=== PATIENT | male | born 1950 | race Caucasian/White ===

== ENCOUNTER 2017-03-07 20:36 | Emergency (ER) | payer OTHER, MEDICARE ==
[2017-03-07 21:11] VITALS: BP 135/97
== END 2017-03-08 00:30 | disposition left against medical advice (07) ==
LOC: ER 20:36
DX: Z53.9 Procedure and treatment not carried out, unspecified reason (principal); M79.671 Pain in right foot

== ENCOUNTER → 2017-05-22 | Outpatient (CLI) | payer OTHER, MEDICARE ==
--- NOTE | 2017-05-22 12:31 | RADIOLOGY REPORT (SQ) ---
EXAM DESCRIPTION: FOOT BILATERAL 3 VIEWS COMPLETED DATE/TIME: 05/22/2017 12:03 pm REASON FOR STUDY: PAIN IN UNSPECIFIED FOOT M79.673 PAIN IN UNSPECIFIED FOOT I73.9 PERIPHERAL VASCU LAR DISEASE, UNSPECIFIED COMPARISON: Prior right foot films and left foot films 01/16/2013 MRI left foot 10/10/2015 Left foot intraoperative films 11/07/2015 NUMBER OF VIEWS: Three views. TECHNIQUE: AP, lateral and oblique radiographic images acquired of the right and left foot. LIMITATIONS: None. FINDINGS: Right foot: There is a nonunited fracture, base 1st metatarsal with medial and proximal displacement of the dista l fracture fragment. Minimal periosteal new bone. No bony bridging callus. Nonunited fractures of the 2nd and 3rd distal metatarsal metaphysis these. These exhibit mild varus angulation, periosteal new bone without bony bridging callus. Osteo necrosis articular surface 4th metatarsal head with flattening at the 4th MTP joint There is diffuse forefoot soft tissue swelling. Small plantar calcaneal spur. No radiopaque foreign body. No gross soft tissue gas. Left foot: Patient is post 2nd and 3rd toe amputations at the level of the distal metatarsals. Bony healing at the osteotomy site has occurred. No aggressive demineralization worrisome for ongoing infection. Osteo necrosis articular surface left 4th metatarsal with flattening of the 4th metatarsal head at th e 4th MTP joint. There is about 50 of valgus subluxation left great toe at the 1st MTP joint. 1st metatarsal head ex hibits no aggressive bony erosions worrisome for osteomyelitis. Mild left forefoot soft tissue swelling. IMPRESSION: Findings as above. TECHNICAL DOCUMENTATION: JOB ID: [id number] [employer]- All Rights Reserved
== END ==
LOC: OD 11:21
PROVIDERS: ATTEND Surgery
DX: M79.672 Pain in left foot (principal); M79.671 Pain in right foot; I73.9 Peripheral vascular disease, unspecified; I87.2 Venous insufficiency (chronic) (peripheral)

== ENCOUNTER 2017-10-05 22:40 | Emergency (ER) | payer MEDICARE ==
[2017-10-05] MEDS ORDERED: HALOPERIDOL LACTATE INJ 5 MG/1 ML VIAL ONE (22:50)
[2017-10-05] MEDS ORDERED: MIDAZOLAM 2 MG/2 ML INJ ONE (22:51)
[2017-10-05] MEDS ORDERED: DIPHENHYDRAMINE HCL 50 MG/ML VIAL ONE (22:51)
[2017-10-05] MEDS ORDERED: NORMAL SALINE 1000 ML 1,000 ML IV ONE (22:58)
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
[2017-10-05 23:43] LABS: ALCOHOL 212 mg/dL (NONE DETECTED); ANION GAP 16 (5-19); BLOOD UREA NITROGEN 16 mg/dL (7-20); CALCIUM 9.5 mg/dL (8.4-10.2); CARBON DIOXIDE 25 mmol/L (22-30); CHLORIDE 92 mmol/L (98-107); POTASSIUM 4.1 mmol/L (3.6-5.0); SODIUM 132.6 mmol/L (137-145)
[2017-10-05 23:53] LABS: GLUCOSE 563 mg/dL (75-110)
[2017-10-06 00:40] LABS: VENOUS BLOOD BASE EXCESS -2.2 mmol/L; VENOUS BLOOD HCO3 24.1 mmol/L (20-32); VENOUS BLOOD PH 7.33 (7.30-7.42)
[2017-10-06] MEDS ORDERED: INSULIN REG, HUMAN 100 UNIT/ML 3 ML VIAL (PYX) IV ONE (01:01)
[2017-10-06 01:36] VITALS: BP 128/89
== END 2017-10-06 01:36 | disposition home or self-care (01) ==
LOC: ER 22:40
DX: F10.920 Alcohol use, unspecified with intoxication, uncomplicated (principal); R73.9 Hyperglycemia, unspecified; F91.9 Conduct disorder, unspecified
CPT/HCPCS: 99285; 96361; 96374; 96375; 36415; 82962; 80307; 80048; 82803; J2250; J1200; J1630; A9270; J7030; J1815

== ENCOUNTER 2018-01-01 06:48 | Day surgery (SDC) | payer OTHER, MEDICARE ==
[~2018-01-01 06:48] MED LIST: KETOROLAC TROMETHAMINE 0.45% 4 DROP/0.4 ML DROPERETTE OD PRN
[2018-01-01] MEDS: TROPICAMIDE 1% OPH SOLN 3 ML OD PRN ×3 (07:00→07:39)
[2018-01-01] MEDS: CYCLOPENTOLATE 0.2%/PHENYLEPHRINE 1% OPH SOLN 2 ML OD PRN ×3 (07:00→07:39)
[2018-01-01] MEDS: BESIFLOXACIN HCL 0.6% OPH SUSP 5 ML BOTTLE OD PRN ×3 (07:01→08:22)
[2018-01-01] MEDS: TETRACAINE HCL 0.5% OPH SOLN 2 ML OD PRN ×3 (07:02→07:59)
[2018-01-01] MEDS ORDERED: LIDOCAINE 1% INJ-PF (10 MG/ML) 30 ML SDV ONE (07:08)
[2018-01-01] MEDS ORDERED: CHONDR SU A NA/HYALUR INTRAOC KIT (SURGICARE) ONE (07:08)
[2018-01-01] MEDS ORDERED: EPINEPHRINE INJ/PF 1 MG/1 ML AMPULE ONE (07:08)
[2018-01-01] MEDS ORDERED: MIDAZOLAM 2 MG/2 ML INJ ONE (07:31)
--- NOTE | 2018-01-01 20:09 | [facility] OPERATIVE REPORT E ---
[facility] Operative Report NAME: SAADIA MARK AGE: 67Y DATE OF SURGERY: 01/01/2018 ROOM: PREOPERATIVE DIAGNOSIS: CATARACT, RIGHT EYE. POSTOPERATIVE DIAGNOSIS: CATARACT, RIGHT EYE. OPERATION: Cataract extraction with intraocular lens implant of the right eye. SURGEON: MARY CHAMPAGNE M.D. ANESTHESIA: Topical. PROCEDURE: After obtaining appropriate consent, the patient's right eye was prepped and draped in sterile fashion as well as the surgeon in a sterile manner and cataract surgery was started. First a paracentesis blade was used to make a small side-port incision. Viscoelastic was used to inflate the anterior chamber. Next a 2.4 mm incision was made with the paracentesis blade. A continuous capsulorrhexis incision was made using a cystotome and Utrata forceps. Following this hydrodissection was carried out to make the lens fully loose and mobile and it was rotated 90 degrees. Following this, a eccvnp-vvu-znprkjb technique was used to phacoemulsify the lens with a CDE of 12.77. The remaining cortex was removed with irrigation/aspiration. Provisc was instilled into the capsular bag to inflate the bag. A SN60WF, 10.0 diopter lens was placed. The remaining viscoelastic material was removed with irrigation/aspiration. Following this, a 10-0 nylon suture was used to close the incision and it was found to be watertight. Vigamox was instilled in the eye and a protective shield was placed over the eye. The patient returned to the postoperative recovery in stable condition. DICTATING PHYSICIAN: MARY CHAMPAGNE M.D. [id number] [id number] PHY#: [id number] ID: [id number] JOB#: [id number] ACCT: [id number] cc:MARY CHAMPAGNE M.D. >
--- NOTE | 2018-01-01 20:14 | [facility] DISCHARGE SUMMARY E ---
[facility] Discharge Summary NAME: SAADIA MARK AGE: 67Y ADMITTED: 01/01/2018 DISCHARGED: 01/01/2018 This is a 67-year-old male who underwent cataract extraction of the right eye. DIAGNOSIS: Cataract, right eye. INDICATIONS: He underwent surgery because he was having difficulty reading the newspaper. DISCHARGE INSTRUCTIONS: He should be on a regular diet. No bending at his waist, no heaving lifting. He should use his Besivance, Ilevro, and Durezol at 3:00 p.m. and 8:00 p.m., and sleep with a rigid shield, and I will see him for his 1 day postoperative tomorrow. DICTATING PHYSICIAN: MARY CHAMPAGNE M.D. [id number] [id number] PHY#: [id number] ID: [id number] JOB#: [id number] ACCT: [id number] cc:MARY CHAMPAGNE M.D. > MTDD
== END 2018-01-01 09:10 | disposition home or self-care (01) ==
LOC: SC 06:48
PROVIDERS: ATTEND Internal Medicine
PROC: 08RJ3JZ Replacement of Right Lens with Synthetic Substitute, Percutaneous Approach (ICD-10-PCS; principal; 2018-01-01 08:00)
DX: H25.813 Combined forms of age-related cataract, bilateral (principal); H53.021 Refractive amblyopia, right eye; H40.053 Ocular hypertension, bilateral; H43.813 Vitreous degeneration, bilateral; H04.123 Dry eye syndrome of bilateral lacrimal glands; E11.9 Type 2 diabetes mellitus without complications; I10 Essential (primary) hypertension; G40.909 Epilepsy, unspecified, not intractable, without status epilepticus; M19.90 Unspecified osteoarthritis, unspecified site; F17.210 Nicotine dependence, cigarettes, uncomplicated; Z86.73 Personal history of transient ischemic attack (TIA), and cerebral infarction without residual deficits; Z79.899 Other long term (current) drug therapy; Z79.4 Long term (current) use of insulin; Z79.84 Long term (current) use of oral hypoglycemic drugs; I25.2 Old myocardial infarction
CPT/HCPCS: 66984; 82962; V2632; J2250; J3490 ×2; J0171; 142

== ENCOUNTER 2018-01-22 08:23 | Day surgery (SDC) | payer OTHER, MEDICARE ==
[~2018-01-22 08:23] MED LIST changes: -KETOROLAC TROMETHAMINE 0.45% 4 DROP/0.4 ML DROPERETTE OD PRN; +KETOROLAC TROMETHAMINE 0.45% 4 DROP/0.4 ML DROPERETTE OS PRN
[2018-01-22] MEDS: CYCLOPENTOLATE 0.2%/PHENYLEPHRINE 1% OPH SOLN 2 ML OS PRN ×3 (09:17→09:33)
[2018-01-22] MEDS: TETRACAINE HCL 0.5% OPH SOLN 2 ML OS PRN ×4 (09:17→09:50)
[2018-01-22] MEDS: TROPICAMIDE 1% OPH SOLN 3 ML OS PRN ×3 (09:17→09:33)
[2018-01-22] MEDS: BESIFLOXACIN HCL 0.6% OPH SUSP 5 ML BOTTLE OS PRN ×4 (09:17→10:11)
[2018-01-22] MEDS ORDERED: MIDAZOLAM 2 MG/2 ML INJ ONE (09:36)
[2018-01-22] MEDS ORDERED: FENTANYL CITRATE INJ/PF 100 MCG/2 ML AMPUL ONE (09:36)
[2018-01-22] MEDS ORDERED: ONDANSETRON HCL INJ/PF 4 MG/2 ML SDV ONE (09:36)
[2018-01-22] MEDS: EPINEPHRINE INJ/PF 1 MG/1 ML AMPULE ONE ×2 (10:01)
[2018-01-22] MEDS: LIDOCAINE 1% INJ-PF (10 MG/ML) 30 ML SDV ONE ×2 (10:01)
[2018-01-22] MEDS: CHONDR SU A NA/HYALUR INTRAOC KIT (SURGICARE) ONE ×2 (10:01)
--- NOTE | 2018-01-22 15:09 | [facility] OPERATIVE REPORT E ---
[facility] Operative Report NAME: SAADIA MARK AGE: 67Y DATE OF SURGERY: 01/22/2018 ROOM: PREOPERATIVE DIAGNOSIS: CATARACT, LEFT EYE. POSTOPERATIVE DIAGNOSIS: CATARACT, LEFT EYE. OPERATION: Cataract extraction with intraocular lens implant of the left eye. SURGEON: MARY CHAMPAGNE M.D. ANESTHESIA: Topical. PROCEDURE: After obtaining appropriate consent, the patient's left eye was prepped and draped in sterile fashion as well as the surgeon in a sterile manner and cataract surgery was started. First a paracentesis blade was used to make a small side-port incision. Viscoelastic was used to inflate the anterior chamber. Next a 2.4 mm incision was made with the paracentesis blade. A continuous capsulorrhexis incision was made using a cystotome and Utrata forceps. Following this hydrodissection was carried out to make the lens fully loose and mobile and it was rotated 90 degrees. Following this, a yysmmo-ilx-mphgold technique was used to phacoemulsify the lens with a CDE of 6.40. The remaining cortex was removed with irrigation/aspiration. Provisc was instilled into the capsular bag to inflate the bag. A SN60WF, 10.5 diopter lens was placed. The remaining viscoelastic material was removed with irrigation/aspiration. Following this, a 10-0 nylon suture was used to close the incision and it was found to be watertight. Vigamox was instilled in the eye and a protective shield was placed over the eye. The patient returned to the postoperative recovery in stable condition. DICTATING PHYSICIAN: MARY CHAMPAGNE M.D. [id number] PHY#: [id number] ID: [id number] JOB#: [id number] ACCT: [id number] cc:MARY CHAMPAGNE M.D. >
--- NOTE | 2018-01-22 15:15 | [facility] DISCHARGE SUMMARY E ---
[facility] Discharge Summary NAME: SAADIA MARK AGE: 67Y ADMITTED: 01/22/2018 DISCHARGED: 01/22/2018 HOSPITAL COURSE: This is a 67-year-old male who underwent cataract extraction of the left eye. DIAGNOSIS: CATARACT, LEFT EYE. He underwent surgery because he was having difficulty seeing road signs. DISCHARGE INSTRUCTIONS: He should be on a regular diet. No bending at his waist, no heavy lifting. He should use his Besivance, Ilevro, and Durezol at 3 p.m. and 8 p.m. and sleep with a rigid shield. I will see him for his 1 day postoperative tomorrow. DICTATING PHYSICIAN: MARY CHAMPAGNE M.D. [id number] PHY#: [id number] ID: [id number] JOB#: [id number] ACCT: [id number] cc:MARY CHAMPAGNE M.D. >
== END 2018-01-22 10:57 | disposition home or self-care (01) ==
LOC: SC 08:23
PROVIDERS: ATTEND Internal Medicine
DX: H25.812 Combined forms of age-related cataract, left eye (principal); Z96.1 Presence of intraocular lens; I10 Essential (primary) hypertension; I25.10 Atherosclerotic heart disease of native coronary artery without angina pectoris; Z86.73 Personal history of transient ischemic attack (TIA), and cerebral infarction without residual deficits; E11.9 Type 2 diabetes mellitus without complications; G62.9 Polyneuropathy, unspecified
CPT/HCPCS: 66984; 82962; V2632; J2250; J3490 ×2; J0171; J3010; J2405; 142

== ENCOUNTER 2018-04-12 05:19 | Inpatient (IN) | payer MEDICARE, OTHER ==
[2018-04-12 05:50] LABS: ALANINE AMINOTRANSFERASE 33 U/L (21-72); ALBUMIN 3.8 g/dL (3.5-5.0); ALKALINE PHOSPHATASE 84 U/L (38-126); ANION GAP 12 (5-19); ASPARTATE AMINO TRANSFERASE 28 U/L (17-59); BILIRUBIN,DIRECT 0.4 mg/dL (0.0-0.4); BILIRUBIN,TOTAL 0.4 mg/dL (0.2-1.3); BLOOD UREA NITROGEN 16 mg/dL (7-20); CALCIUM 9.5 mg/dL (8.4-10.2); CARBON DIOXIDE 28 mmol/L (22-30); CHLORIDE 99 mmol/L (98-107); GLUCOSE 315 mg/dL (75-110); POTASSIUM 4.6 mmol/L (3.6-5.0); SODIUM 138.7 mmol/L (137-145); TOTAL PROTEIN 6.9 g/dL (6.3-8.2)
[2018-04-12 05:58] LABS: ABSOLUTE BASOPHILS # (AUTO) 0.1 10^3/uL (0.0-0.2); ABSOLUTE EOSINOPHILS # (AUTO) 0.3 10^3/uL (0.0-0.6); ABSOLUTE LYMPHOCYTES (AUTO) 1.7 10^3/uL (0.5-4.7); ABSOLUTE NEUT (AUTO) 8.6 10^3/uL (1.7-8.2); BASOPHILS % (AUTO) 0.5 % (0-2); EOSINOPHILS % (AUTO) 2.7 % (0-6); HEMATOCRIT 34.6 % (37.9-51.0); HEMOGLOBIN 11.8 g/dL (13.5-17.0); LYMPHOCYTES % (AUTO) 14.9 % (13-45); MEAN CORPUSCULAR HEMOGLOBIN 30.6 pg (27.0-33.4); MEAN CORPUSCULAR VOLUME 90 fl (80-97); MONOCYTES % (AUTO) 8.5 % (3-13); PLATELET COUNT 183 10^3/uL (150-450); RED BLOOD COUNT 3.84 10^6/uL (4.35-5.55); RED CELL DISTRIBUTION WIDTH 13.8 % (11.5-14.0); SEGMENTED NEUTROPHILS % (AUTO) 73.4 % (42-78); TOTAL CELLS COUNTED % (AUTO) 100 %; WHITE BLOOD COUNT 11.7 10^3/uL (4.0-10.5)
--- NOTE | 2018-04-12 06:14 | RADIOLOGY REPORT (SQ) ---
EXAM DESCRIPTION: XR CHEST 1 VIEW COMPLETED DATE/TME: 04/12/2018 05:31 CLINICAL HISTORY: chest tightness COMPARISON: 10/21/2015 FINDINGS: Single frontal view of the chest. Cardiomediastinal silhouette has normal size and contour. Diffuse bilateral interstitial opacities with pulmonary vascular congestion. No pneumothorax. No large effusion. Leads overlie the chest. No acute osseous abnormalities. Left basilar calcified granuloma. Upper abdominal soft tissues are unremarkable. IMPRESSION: 1. Mild interstitial pulmonary edema.
--- NOTE | 2018-04-12 06:18 | ER Document Report ---
Doctor's Note Notes: 04/12/18 06:14 I performed a quick triage evaluation the patient. Patient is a 67-year-old male presents with complaint of difficulty breathing and tightness around his chest. He denies any history of COPD emphysema. He does smoke cigars. No history of coronary disease. Paramedics said he had tight lung sams. They gave him breathing treatments and Solu-medrol. He said this did help his breathing but he still feels a lot of tightness and pressure in his chest. No other complaints at this time. I have ordered cardiac enzymes as well as EKG and chest x-ray. Lung sams are currently clear. Dictation of this chart was performed using voice recognition software; therefore, there may be some unintended grammatical errors. 04/12/18 06:17
[2018-04-12] MEDS ORDERED: MAGNESIUM SULFATE/D5W 1 GM/100 ML RTUPB IV ONE (06:32)
[2018-04-12] MEDS ORDERED: ALBUTEROL SULFATE 0.083% NEB 2.5 MG/3 ML AMPUL NEB ONE ×3 (06:34→07:33)
[2018-04-12] MEDS ORDERED: METHYLPREDNISOLONE INJ 125 MG/2 ML SDV IV ONE (06:34)
[2018-04-12] MEDS ORDERED: FUROSEMIDE INJ/PF 40 MG/4 ML SDV IV ONE ×3 (07:49→20:00)
[2018-04-12 08:25] LABS: ARTERIAL BLOOD BASE EXCESS 2.6 mmol/L; ARTERIAL BLOOD H2CO3 1.28 mmol/L (1.05-1.35); ARTERIAL BLOOD HCO3 27.3 mmol/L (20-26); ARTERIAL BLOOD PCO2 42.5 mmHg (35-45); ARTERIAL BLOOD PH 7.43 (7.35-7.45); ARTERIAL BLOOD PO2 61.3 mmHg (80-100); ARTERIAL BLOOD TOTAL CO2 28.6 mmol/L (23-27)
--- NOTE | 2018-04-12 08:25 | EKG REPORT ---
SEVERITY:- ABNORMAL ECG - SINUS TACHYCARDIA BORDERLINE R WAVE PROGRESSION, ANTERIOR LEADS REPOL ABNRM SUGGESTS ISCHEMIA, DIFFUSE LEADS BORDERLINE PROLONGED QT INTERVAL : Confirmed by: Agnes Calderon MD 12-Apr-2018 08:24:54
[2018-04-12 08:26] LABS: ARTERIAL BLOOD FIO2 7L
--- NOTE | 2018-04-12 09:29 | RADIOLOGY REPORT (SQ) ---
EXAM DESCRIPTION: CTA CHEST COMPLETED DATE/TIME: 04/12/2018 9:15 am REASON FOR STUDY: sob COMPARISON: Chest radiograph TECHNIQUE: CT scan of the chest performed using helical scanning technique with dynamic intravenous contrast injection. Images reviewed with lung, soft tissue and bone windows. Reconstructed coronal and sagittal MPR images reviewed. Additional 3 dimensional post-processing performed to develop Maximal Intensity Projection images (HI P). All images stored on PACS. All CT scanners at this facility use dose modulation, iterative reconstruction, and/or weight based d osing when appropriate to reduce radiation dose to as low as reasonably achievable (ALARA). [facility]: Dose Right [facility]: CareDose [facility]: Dose Right [facility]: Teradose 4D [facility]: Amicus CONTRAST TYPE AND DOSE: contrast/concentration: Isovue 370.00 mg/ml; Total Contrast Delivered: 68.0 ml; Total Saline Delivered: 108.0 ml Contrast bolus optimized for the pulmonary arteries. Not diagnostic for the aorta. RENAL FUNCTION: Creatinine 1.19 RADIATION DOSE: CT Rad equipment meets quality standard of care and radiation dose reduction techniq ues were employed. CTDIvol: 25.6 - 32.8 mGy. DLP: 1084 mGy-cm. . LIMITATIONS: None. FINDINGS: LUNGS AND PLEURA: Diffuse interstitial and alveolar changes to the lungs with prominent ly mphatics. Typical of congestive heart failure and pulmonary edema. AORTA AND GREAT VESSELS: No aneurysm. Contrast bolus not optimized for the aorta. HEART: No pericardial effusion. Coronary artery calcifications. PULMONARY ARTERIES: No emboli visualized in the main pulmonary arteries or the segmental branches. HILAR AND MEDIASTINAL STRUCTURES: No identified masses or abnormal nodes. HARDWARE: None in the chest. UPPER ABDOMEN: Extensive pancreatic calcifications indicating chronic pancreatitis. THYROID AND OTHER SOFT TISSUES: No masses. No adenopathy. BONES: No acute or significant finding. 3D MIPS: Confirm above findings. OTHER: No other significant finding. IMPRESSION: Congestive heart failure is interstitium alveolar pulmonary edema. No pulmonary emboli. Chronic pancreatitis. COMMENT: Quality ID # [id number]: Final reports with documentation of one or more dose reduction techniques (e.g., Automated exposure control, adjustment of the mA and/or kV according to patient size, use of iterative reconstruction technique) TECHNICAL DOCUMENTATION: JOB ID: [id number] [employer]- All Rights Reserved Reading location - IP/workstation name: [email or web address]
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
[2018-04-12] MEDS ORDERED: ACETAMINOPHEN 325 MG TABLET PO PRN (11:25)
[2018-04-12] MEDS ORDERED: LEVALBUTEROL HCL NEB 1.25 MG/3 ML AMPUL NEB PRN (11:37)
[2018-04-12] MEDS ORDERED: IPRATROPIUM/ALBUTEROL 0.5-2.5 MG/3 ML AMPUL NEB PRN (11:37)
[2018-04-12] MEDS: OXYCODONE HCL IR 5 MG TABLET PO PRN (12:21)
[2018-04-12 12:32] LABS: APPEARANCE,URINE CLEAR; BILIRUBIN,URINE NEGATIVE (NEGATIVE); COLOR,URINE COLORLESS; GLUCOSE, URINE >=500 mg/dL (NEGATIVE); KETONES,URINE NEGATIVE (NEGATIVE); LEUKOCYTE ESTERASE,URINE NEGATIVE (NEGATIVE); NITRITE,URINE NEGATIVE (NEGATIVE); PROTEIN,URINE 30 mg/dL (NEGATIVE); URINE SPECIFIC GRAVITY 1.011; UROBILINOGEN,URINE NEGATIVE mg/dL (<2.0)
[2018-04-12 12:51] LABS: URINE AMPHETAMINES SCREEN NEGATIVE; URINE BARBITURATES SCREEN NEGATIVE; URINE BENZODIAZEPINES SCREEN NEGATIVE; URINE COCAINE SCREEN NEGATIVE; URINE MARIJUANA (THC) SCREEN UNCONFIRMED POSITIVE; URINE METHADONE SCREEN NEGATIVE; URINE PHENCYCLIDINE SCREEN NEGATIVE
[2018-04-12] MEDS ORDERED: DIVALPROEX SODIUM 250 MG TAB.SR.24H PO ONE ×2 (13:00→17:00)
--- NOTE | 2018-04-12 13:55 | RADIOLOGY REPORT (SQ) ---
EXAM DESCRIPTION: FOOT LEFT COMPLETE COMPLETED DATE/TIME: 04/12/2018 1:44 pm REASON FOR STUDY: evaluate for osteomyelitis COMPARISON: 11/07/2015 NUMBER OF VIEWS: Three views. TECHNIQUE: AP, lateral and oblique radiographic images acquired of the left foot. LIMITATIONS: Choose 2 FINDINGS: MINERALIZATION: Normal. BONES: Partial amputation of the seconds and 3rd digits. No worrisome bone changes at the amputation site. Marked hallux valgus. No findings to suggest osteomyelitis on plain radiograph. JOINTS: No effusions. SOFT TISSUES: No soft tissue swelling. No foreign body. OTHER: No other significant finding. IMPRESSION: No findings to suggest osteomyelitis on plain radiographs. TECHNICAL DOCUMENTATION: JOB ID: [id number] [employer]- All Rights Reserved Reading location - IP/workstation name: [email or web address]
[2018-04-12] MEDS ORDERED: DEXTROSE 50%-WATER 25 GM/50 ML DISP.SYRIN IV PRN ×3 (15:44→15:45)
[2018-04-12] MEDS ORDERED: DEXTROSE 40% GEL 15 GM TUBE PO PRN ×4 (15:44→15:45)
[2018-04-12] MEDS ORDERED: GLUCAGON,HUMAN RECOMB 1 MG INJ IM PRN ×2 (15:44→15:45)
[2018-04-12] MEDS: GABAPENTIN 300 MG CAPSULE PO SCH ×2 (16:26→22:17)
[2018-04-12] MEDS ORDERED: INSULIN LISPRO 100 UNIT/ML 3 ML VIAL SUBCUT ONE (17:30)
[2018-04-12] MEDS: INSULIN LISPRO 100 UNIT/ML 3 ML VIAL SUBCUT PRN ×2 (17:33→22:18)
[2018-04-12] MEDS ORDERED: LEVOFLOXACIN 750 MG/D5W RTU 750 MG/150 ML RTUPB IV ONE (18:00)
[2018-04-12] MEDS ORDERED: HYDRALAZINE HCL INJ/PF 20 MG/1 ML SDV IV PRN (18:03)
[2018-04-12] MEDS ORDERED: IPRATROPIUM/ALBUTEROL 0.5-2.5 MG/3 ML AMPUL NEB ONE (18:05)
[2018-04-12] MEDS ORDERED: AMOXICILLIN TRIHYDRATE 500 MG CAPSULE PO SCH (22:00)
[2018-04-12] MEDS: FAMOTIDINE 20 MG TABLET PO SCH (22:18)
[2018-04-13] MEDS: OXYCODONE HCL IR 5 MG TABLET PO PRN ×4 (01:31→20:03)
[2018-04-13] MEDS: GABAPENTIN 300 MG CAPSULE PO SCH ×3 (05:56→21:16)
[2018-04-13 05:57] LABS: HEMATOCRIT 31.4 % (37.9-51.0); HEMOGLOBIN 10.8 g/dL (13.5-17.0); MEAN CORPUSCULAR HEMOGLOBIN 30.8 pg (27.0-33.4); MEAN CORPUSCULAR HGB CONC 34.5 g/dL (32.0-36.0); MEAN CORPUSCULAR VOLUME 89 fl (80-97); PLATELET COUNT 180 10^3/uL (150-450); RED BLOOD COUNT 3.51 10^6/uL (4.35-5.55); RED CELL DISTRIBUTION WIDTH 13.7 % (11.5-14.0)
[2018-04-13 06:24] LABS: ALANINE AMINOTRANSFERASE 30 U/L (21-72); ALKALINE PHOSPHATASE 65 U/L (38-126); ANION GAP 10 (5-19); ASPARTATE AMINO TRANSFERASE 44 U/L (17-59); BILIRUBIN,DIRECT 0.3 mg/dL (0.0-0.4); BILIRUBIN,TOTAL 0.3 mg/dL (0.2-1.3); BLOOD UREA NITROGEN 25 mg/dL (7-20); CALCIUM 9.2 mg/dL (8.4-10.2); CARBON DIOXIDE 28 mmol/L (22-30); CHLORIDE 100 mmol/L (98-107); GLUCOSE 202 mg/dL (75-110); PHOSPHORUS 3.4 mg/dL (2.5-4.5); SODIUM 138.2 mmol/L (137-145); TOTAL PROTEIN 5.9 g/dL (6.3-8.2)
[2018-04-13] MEDS ORDERED: ONDANSETRON 4 MG TAB.RAPDIS PO PRN (07:55)
[2018-04-13] MEDS: INSULIN LISPRO 100 UNIT/ML 3 ML VIAL SUBCUT PRN ×3 (07:58→21:16)
--- NOTE | 2018-04-13 08:09 | RADIOLOGY REPORT (SQ) ---
EXAM DESCRIPTION: CHEST SINGLE VIEW COMPLETED DATE/TIME: 04/13/2018 7:54 am REASON FOR STUDY: pneumonia COMPARISON: AP chest 04/12/2018, 10/21/2015 EXAM PARAMETERS: NUMBER OF VIEWS: One view. TECHNIQUE: Single frontal radiographic view of the chest acquired. RADIATION DOSE: NA LIMITATIONS: None. FINDINGS: LUNGS AND PLEURA: Pulmonary edema pattern seen on 04/12/2018 has near completely cleared. Few Devon lines persist at both bases. There is minimal retrocardiac and right basilar atelectasis with trace right pleural effusion. No pneumothorax. MEDIASTINUM AND HILAR STRUCTURES: No masses. Contour normal. HEART AND VASCULAR STRUCTURES: No cardiomegaly BONES: No acute findings. HARDWARE: None in the chest. OTHER: No other significant finding. IMPRESSION: Significant improvement in the pulmonary edema pattern seen on 04/12/2018. On the curren t study, few Devon lines persist at both lung bases, with trace right pleural effusion. TECHNICAL DOCUMENTATION: JOB ID: [id number] [employer]- All Rights Reserved Reading location - IP/workstation name: [email or web address]
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
[2018-04-13] MEDS: DIVALPROEX SODIUM 250 MG TAB.SR.24H PO SCH (09:35)
[2018-04-13] MEDS: FUROSEMIDE INJ/PF 40 MG/4 ML SDV IV SCH (09:35)
[2018-04-13] MEDS: ESCITALOPRAM OXALATE 10 MG TABLET PO SCH (09:38)
[2018-04-13] MEDS: ENOXAPARIN SODIUM INJ 40 MG/0.4 ML DISP.SYRIN SUBCUT SCH (09:38)
[2018-04-13] MEDS: FAMOTIDINE 20 MG TABLET PO SCH ×2 (09:38→21:16)
[2018-04-13] MEDS: PAROXETINE HCL 20 MG TABLET PO SCH (09:38)
[2018-04-13] MEDS ORDERED: VERAPAMIL HCL 120 MG TABLET.SA PO SCH (10:00)
[2018-04-13] MEDS ORDERED: ENOXAPARIN SODIUM INJ 30 MG/0.3 ML DISP.SYRIN SUBCUT SCH (10:00)
[2018-04-13] MEDS ORDERED: (PENDING PHARMACY ID) (Paroxetine Hcl [Paxil] 60 MG) PO SCH (10:00)
[2018-04-13] MEDS ORDERED: (PENDING PHARMACY ID) (Verapamil Hcl [Verapamil Er] 120 MG) PO SCH (10:00)
--- NOTE | 2018-04-13 15:14 | CONSULTATION REPORT E ---
Consultation Report NAME: SAADIA MARK : 1950 AGE: 67Y DATE: 04/12/2018 302 A TO: LIZBET MOTT M.D. FROM: Ron GRAY, Requesting Physician REASON FOR CONSULTATION: Congestive heart failure. HISTORY: The patient is a very poor historian. Note, the patient was seen at 10 a.m. in the emergency room while the patient was on BiPAP. The patient is a 67-year-old male with known history of hypertension, poorly controlled diabetes mellitus, depression, and history of coronary artery disease, who states that he woke up suddenly this morning around 2 a.m. with wheezing and cough. He seems like he has been having increased shortness of breath for the past few days. He states since a year, he has been having off and on episodes of cough, which he calls a smoker's cough with some shortness of breath and wheezing. He has never been diagnosed as having COPD. Today, the patient woke up with wheezing and cough, productive of sputum, which is grayish with blobs of greenish viscous sputum. He denies any fevers. No chills or rigors. Surprisingly, he denies any orthopnea or PND. When the paramedics went and saw him, he was found to be wheezing and given DuoNeb and transferred to the emergency room and subsequently the wheezing continued and hence, the patient was placed on BiPAP. At present the patient states he is feels better, but still does have some shortness of breath. He denies any chest pain or discomfort. There is no PND or orthopnea. No palpitations, no leg edema. PAST MEDICAL HISTORY: 1. Positive for history of hypertension. 2. He states a few years ago, he does not remember where, he had his catheterization. This was done due to chest pain and he was told he had coronary artery disease, but no stents were placed. There was no followup. He was also told he had a myocardial infarction at that time. 3. He has history of diabetes mellitus, which is poorly controlled. 4. He also has a diabetic nonhealing ulcer of the left big toe, ulnar surface. 5. He has history of significant depression. 6. He also in the past has had a bleeding peptic ulcer. 7. Also has a history of GERD. 8. He has no history of thyroid disease. 9. He states in the past he has had a CVA. He does not remember exactly what the symptoms were, but he states he has fully recovered. 10. He does have diabetic neuropathy. 11. He states he had a left knee surgery 4 years ago and he says that he has had problems with that knee since then. PAST SURGICAL HISTORY: Positive for: 1. Right carpal tunnel release surgery. 2. Left knee replacement. 3. Amputation of the left 3rd toe. 4. Cardiac catheterization. FAMILY HISTORY: Positive for hypertension and diabetes mellitus, but no coronary artery disease. SOCIAL HISTORY: The patient is a smoker and ETOH abuse. ADVANCE DIRECTIVES: The patient is a FULL CODE. His is his surrogate healthcare decision-maker. ALLERGIES: The patient has no known allergies. MEDICATIONS: 1. Tylenol 650 mg p.o. q.4 hours p.r.n. 2. Albuterol sulfate/Ventolin 2 puffs nebulizer treatment x1. 3. Albuterol sulfate 2.5 mg repeated x2. 4. Hypoglycemic precautions with glutose 40% gel, 15 grams and 30 grams p.r.n. hypoglycemia. 5. Dextrose 50%, 12.6 grams and 25 grams IV p.r.n. hypoglycemia. 6. Glucagon 1 mg IM p.r.n. hypoglycemia. 7. Depakote 500 mg p.o. x1 and 500 mg p.o. daily. 8. Lovenox 30 mg subcutaneously daily. 9. Lexapro 10 mg p.o. daily. 10. Pepcid 20 mg p.o. q.12 hours. 11. Lasix 40 mg IV x1 and 40 mg IV daily. 12. Neurontin 600 mg p.o. q.8 hours. 13. Hydralazine 10 mg IV q.4 hours p.r.n. 14. Accu-Chek after meals 3 times a day and at bedtime with sliding scale regular insulin coverage. 15. Ipratropium/albuterol sulfate 3 mL nebulizer treatment q.4 hours p.r.n. Pre and post PFT. 16. Levaquin 750 mg in 150 mL IV piggyback every evening. 17. Magnesium sulfate 1 gram in 100 mL IV x1. 18. Xopenex 1.25 mg nebulizer treatment q.4 hours p.r.n. 19. Solu-Medrol 125 mg IV x1. 20. Oxycodone 5 mg p.o. q.4 hours p.r.n. 21. Paxil 60 mg p.o. daily. 22. Verapamil 120 mg p.o. daily. REVIEW OF SYSTEMS: CONSTITUTIONAL: Denies any fever, chills, or rigors. Complains of generalized fatigue and weakness. HEAD: Denies headaches, head injury or dizziness. EYES: No history of amblyopia or diplopia. No history of amaurosis fugax. EARS: No history of hearing loss. No history of tinnitus. No history of recurrent ear infections. NOSE: No history of nosebleeds. No history of hay fever. No rhinitis. MOUTH: No altered taste sensation. No bleeding from the gums. THROAT: No redness of the oropharynx. No exudates in the throat. SKIN: There is no pruritus, there is no jaundice, there is eczema or psoriasis. LUNGS: Although there is no formal diagnosis of COPD, the patient does have COPD. He denies sleep apnea. Recent symptoms of cough productive of sputum with bilateral right greater than left x-ray findings suggestive of pneumonia. He has no history of sleep apnea. No history of pulmonary embolism. No history of hemoptysis. No history of pleuritic chest pain. Recent wheezing as mentioned earlier. CARDIAC: History of coronary artery disease. History of old [place]. No anginal symptoms. No history of stent placement or any other revascularization procedure. No history of congestive heart failure. No history of cardiac arrhythmia. History of hypertension. He has a history of hypercholesterolemia. No history of PND, leg edema, syncope or near syncope. GASTROINTESTINAL: History of GERD present. No history of fatty food intolerance. No history of jaundice. No history of GI bleed. History of peptic ulcer disease in the past with no recurrence. No history of altered bowel movements. Appetite is good. MUSCULOSKELETAL: History of arthritis present. No history of collagen vascular disease. He had surgery on his left knee. ENDOCRINE: History of diabetes mellitus type 2. The diabetes is poorly controlled. There is no diabetic nephropathy. There is diabetic neuropathy present. The patient does not have history of thyroid disease, but we need to get thyroid function tests to make sure. RENAL: No history of chronic kidney disease. No history of hematuria, dysuria, pyuria or dysuria. No symptoms of enlarged prostate. CENTRAL NERVOUS SYSTEM: History of CVA from which he has fully recovered. No further CVA. No recent TIA. No history of headaches or migraines. He has had history of seizures a long time ago due to low blood sugar, but has not had any recurrence of seizures. He has no documented history of seizures. No history of gait imbalance. No history of sleep apnea. PSYCHIATRIC: History of significant depression. No history of suicidal ideation. No history of homicidal ideation. VASCULAR: No history of calf or buttock claudication. No history of DVT. HEMATOLOGIC: No history of bleeding diathesis, no history of clotting disorder. PHYSICAL EXAMINATION: GENERAL: On examination the patient well built and well nourished, at present on BiPAP. He is well groomed. VITAL SIGNS: He is afebrile with temperature 98.4 degrees Fahrenheit, pulse 95 beats/min, blood pressure 146/92, respirations 16/min, O2 saturation 100% on BiPAP with FiO2 of 35%. HEENT: Head is atraumatic, normocephalic. Eyes: Pupils are equal, round and regular, reactive to light. Extraocular movements normal. There is no conjunctival pallor. There is no scleral icterus. Ears: Tympanic membranes are intact, external auditory canals are clear. Nose: There is no deviated nasal septum. There is no inflammation of the nasal mucous membrane. Mouth: Mucous membranes appear moist. Tongue is moist. There is no bleeding from the gums. Throat: There is no redness of the oropharynx. There is no exudate. SKIN: There is no skin rashes. There is no petechiae or ecchymosis. There are no skin lesions. There is an ulcer in the ulnar surface of the right left great toe. There is hallux valgus of the left great toe. There is amputation of the left 3rd toe. NECK: Supple. There is mild JVD. Carotids are equal. There are no bruits. There is no lymphadenopathy. Trachea is central. LUNGS: Show diminished air entry prolongation. There are dry crackles right base greater than left. There are fine rales of CHF and the x-ray report says the patient has congestive heart failure, as well as the patient's CTA. There is hyperresonance on percussion. There is no dullness. HEART: S1, S2 is heard. There are no S3 or S4 gallops. There is a systolic murmur at the left sternal border at the apex, suggestive of mitral regurgitation and tricuspid regurgitation. There is no rub. There is no aortic stenosis murmur. There is no aortic regurgitation murmur. S1 is of normal intensity. There are no rubs. There are no gallops. ABDOMEN: Soft, nontender. There is no hepatosplenomegaly. Bowel sounds are well heard. There are no tender areas or masses. DIAGNOSTICS: The patient's foot x-ray does not suggests osteomyelitis. Chest Xray shows bilateral pneumonia and CHF. EKG : SINUS TACHYCARDIA : BORDERLINE R WAVE PROGRESSION, ANTERIOR LEADS REPOL ABNRM SUGGESTS ISCHEMIA, DIFFUSE LEADS . BORDERLINE PROLONGED QT INTERVAL His troponin-I 0.044. Ant-proBNP 5210. Lipase less than 10. Albumin 3.8, total protein 6.9. Urine for opiates, methadone, barbiturates, phencyclidine, amphetamines, benzodiazepines and cocaine are negative. His urine marijuana screen is positive. His serum alcohol is less than 10. IMPRESSION: 1. Acute hypoxemic respiratory failure. 2. Acute exacerbation of chronic obstructive pulmonary disease. 3. Bilateral pneumonia. 4. Congestive heart failure.( Systolic versus Diastolic versus Combined). 5. Diabetes mellitus, poor control. 6. Hypertension. 7. History of coronary artery disease and history of old myocardial infarction; no anginal symptoms, no myocardial infarction this admission. 8. Depression, seems to be severe. 9. Gastroesophageal reflux disease. 10. History of hyperlipidemia. 11. Diabetic neuropathy. 12. Nonhealing ulcer of the left big toe. 13. Tobacco abuse disorder. RECOMMENDATIONS: I agree with the present treatment. I would continue the patient on Levaquin. We will get an echo. We will see if the infiltrates have improved after IV Lasix, in which case the diagnosis would lean more towards congestive heart failure. Continue respiratory treatments. Watch out for any arrhythmias. Would recommend tight control of his blood sugar. Continue gabapentin for his neuropathy. Continue his antidepressants. Continue his Verapamil. We will try to get his records from the [facility]. I will also ask the . His medications have been reviewed. Medical decision-making is of high complexity. Note, the patient was seen at 10 a.m. and 60 minutes were spent on the patient, more than 50% of the time spent on direct patient care. Discussed with the hospitalist taking care of the patient. Discussed with the patient. We will follow with you. Thanking you. DICTATING PHYSICIAN: LIZBET MOTT M.D. [id number] PHY#: [id number] ID: [id number] JOB#: [id number] ACCT: [id number] cc:LIZBET MOTT M.D. > MTDD
--- NOTE | 2018-04-13 16:39 | PDOC PROGRESS REPORT ---
<BARTOLO RIBEIRO - Last Filed: 04/13/18 16:38> Subjective Progress Note for:: 04/13/18 Subjective:: SAADIA MARK is a 67 y.o. M with a PMH of DM, HTN, IBS, chronic pain, 50 pack year smoking history, and daily marijuana use. The patient was admitted to [facility] 04/12/2018 for shortness of breath and chest pain. He was diagnosed with a CHF and COPD exacerbation. The patient was initially admitted on BIPAP, but following diuresis, he was quickly able to wean to nasal cannula. Patient seen this morning on rounds, he is resting comfortably in bed on room air with his at the bedside. The patient has no complaints this morning. He denies shortness of breath, dyspnea, chest pain, fever or chills. His BNP is worse this morning (5120 ->48219) but his lungs are clear to auscultation. Patient does not exhibit any signs of respiratory distress. Normal S1-S2, no murmur/rubs/gallops. No evidence of peripheral edema. Small scattered venous stasis ulcers and skin discoloration to bilateral lower extremities. Large diabetic ulcer to ventral aspect of L foot, covered with dressing, very mild serosanguenous drainage. Reason For Visit: CHF/COPD EXACERBATION Physical Exam Vital Signs: Temp Pulse Resp BP Pulse Ox 98.1 F 92 16 132/82 H 96 04/13/18 11:23 04/13/18 11:23 04/13/18 11:23 04/13/18 11:23 04/13/18 11:23 Pulse Oximeter Continuous Start: 04/12/18 11: 26 Freq: RTQ4 Status: Active Document 04/13/18 11:19 TPO (Rec: 04/13/18 11:20 TPO [email or web address]) Pulse Oximetry Assessment Oxygen Saturation (92-100) 99 Oxygen Delivery Method Room Air Fraction of Inspired Oxygen (FIO2) 21 Equipment Usage Equipment in Use Continuous SpO2 Machine # 11 Intake & Output 04/12/18 04/13/18 04/14/18 06:59 06:59 06:59 Intake Total 717 992 Output Total 2300 Balance -1583 992 Weight 72.8 kg General appearance: PRESENT: no acute distress, thin Eye exam: PRESENT: conjunctiva pink, PERRLA Mouth exam: PRESENT: moist Teeth exam: PRESENT: poor dentation Neck exam: PRESENT: full ROM Respiratory exam: PRESENT: clear to auscultation deandre, symmetrical, unlabored Cardiovascular exam: PRESENT: RRR, +S1, +S2 Pulses: PRESENT: normal radial pulses, normal dorsalis pedis pul GI/Abdominal exam: PRESENT: normal bowel sounds, soft. ABSENT: tenderness Rectal exam: PRESENT: deferred Extremities exam: PRESENT: full ROM. ABSENT: joint swelling, pedal edema Musculoskeletal exam: PRESENT: full ROM Neurological exam: PRESENT: alert, awake, oriented to person, oriented to place , oriented to time, oriented to situation Psychiatric exam: PRESENT: appropriate affect Skin exam: PRESENT: dry, intact, warm Results Laboratory Results: 04/13/18 04:35 04/13/18 04:35 04/13/18 04/13/18 04:35 04:35 WBC 18.0 H RBC 3.51 L Hgb 10.8 L Hct 31.4 L MCV 89 MCH 30.8 MCHC 34.5 RDW 13.7 Plt Count 180 Sodium 138.2 Potassium 4.0 Chloride 100 Carbon Dioxide 28 Anion Gap 10 BUN 25 H Creatinine 0.95 Est GFR ( Amer) > 60 Est GFR (Non-Af Amer) > 60 Glucose 202 H Calcium 9.2 Phosphorus 3.4 Magnesium 1.9 Total Bilirubin 0.3 AST 44 ALT 30 Alkaline Phosphatase 65 Total Protein 5.9 L Albumin 3.0 L 04/13/18 04:35 NT-Pro-B Natriuret Pep 60035 H Impressions: Foot X-Ray 04/12/18 00:00 IMPRESSION: No findings to suggest osteomyelitis on plain radiographs. Chest/Abdomen CTA 04/12/18 06:36 IMPRESSION: Congestive heart failure is interstitium alveolar pulmonary edema. No pulmonary emboli. Chronic pancreatitis. Chest X-Ray 04/13/18 00:00 IMPRESSION: Significant improvement in the pulmonary edema pattern seen on 04/12. On the current study, few Devon lines persist at both lung bases, with trace right pleural effusion. Status: Imported from PACS Assessment & Plan - Diagnosis (1) Acute respiratory failure QualifierTitle: Respiratory failure complication: hypoxia Qualified Code( s): J96.01 - Acute respiratory failure with hypoxia Is this a current diagnosis for this admission?: Yes Plan: Secondary to CHF and COPD exacerbation Patient denies history of COPD but endorses 50 year smoking history, currently still smoking, endorses daily productive cough Patient denies history of CHF but evidence of interstitial and alveolar changes on CTA typical of CHF, elevated BNP, LVEF 30% Initially placed on BiPAP for tachypnea and increased work of breathing Diuresed with IV Lasix in emergency department and able to wean off BiPAP Continue supplemental oxygen for SPO2 >90% BiPAP as needed Duo nebs as needed Xopenex as needed Empiric antibiotic coverage for severe COPD exacerbation versus community- acquired pneumonia Sputum cultures pending Daily diuresis for CHF exacerbation (2) Pulmonary edema QualifierTitle: Chronicity: acute Qualified Code(s): J81.0 - Acute pulmonary edema Is this a current diagnosis for this admission?: Yes Plan: Improved. As evidenced by interstitial pulmonary edema on CTA and CXR Likely secondary to undiagnosed CHF BNP 41348 Initially diuresed with 40 mg Lasix IV in emergency department Continue daily diuresis BiPAP as needed (3) COPD (chronic obstructive pulmonary disease) QualifierTitle: Chronic bronchitis type: unspecified Is this a current diagnosis for this admission?: Yes Plan: Patient denies history of COPD but admits to [id number] smoking history. Patient no longer smokes cigarettes, states he smokes cigars and marijuana every day Patient admits to productive cough with green/duarte sputum Lungs are clear to auscultation, no adventitious breath sounds PFT completed - awaiting results BiPAP as needed Duo nebs as needed Xopenex as needed Mucinex twice daily Empiric antibiotic coverage with IV Levaquin for severe COPD exacerbation versus community-acquired pneumonia (4) Diabetic foot ulcer QualifierTitle: Diabetic foot ulcer location: toe Diabetes mellitus type : type 1 Laterality: right Non-pressure ulcer stage: unspecified non- pressure ulcer stage Qualified Code(s): E10.621 - Type 1 diabetes mellitus with foot ulcer; L97.519 - Non-pressure chronic ulcer of other part of right foot with unspecified severity; L97.519 - Non-pressure chronic ulcer of other part of right foot with unspecified severity; L97.519 - Non-pressure chronic ulcer of other part of right foot with unspecified severity; L97.519 - Non- pressure chronic ulcer of other part of right foot with unspecified severity Is this a current diagnosis for this admission?: Yes Plan: Large open ulcer on the ventral aspect of the L foot, located over the 1st proximal phalange Surrounding tissue is pink and blanchable. There is no tunneling of evidence of necrosis. Patient reports he is being followed by a grey goods tester in [place] X-ray to evaluate for osteomyelitis is (-) negative Antibiotic coverage with IV Levaquin 750mg daily Wound culture pending (5) CHF (congestive heart failure) QualifierTitle: Heart failure type: unspecified Heart failure chronicity : unspecified Qualified Code(s): I50.9 - Heart failure, unspecified Is this a current diagnosis for this admission?: Yes Plan: Previously undiagnosed. Patient denies history of heart failure. BNP 5210 [place] [address] but patient is asymptomatic at this time Interstitial pulmonary edema noted on CTA and CXR ECHOcardiogram shows LVEF 30% Continue daily diuresis Cardiology consulted, recommend initiating Toprol XL and lisinopril Patient will require outpatient cardiology follow up upon discharge Request Heart Failure educator to meet with patient (6) HTN (hypertension) QualifierTitle: Hypertension type: essential hypertension Qualified Code( s): I10 - Essential (primary) hypertension Is this a current diagnosis for this admission?: Yes Plan: Patient endorses history of hypertension He has remained relatively normotensive since admission Discontinue verapamil per cardiology recommendations Initiate Toprol-XL and lisinopril Hydralazine IV for SBP>170 - Time Time Spent with patient: 15-24 minutes Medications reviewed and adjusted accordingly: Yes Anticipated discharge: Home - Inpatient Certification Based on my medical assessment, after consideration of the patient's comorbidities, presenting symptoms, or acuity I expect that the services needed warrant INPATIENT care.: Yes I certify that my determination is in accordance with my understanding of Medicare's requirements for reasonable and necessary INPATIENT services [42 CFR 412.3e].: Yes Medical Necessity: Need for Nebulizer Therapy and Monitoring of Response, Need for IV Antibiotics, Risk of Complication if Not Cared For in Hospital - Plan Summary Plan Summary: CONTINUE ANTIBIOTIC TREATMENT. AWAITING OFFICIAL ECHO RESULTS. CONTINUE DAILY DIURESIS. INITIATE NEW ANTI-HTN MANAGEMENT PER CARDIOLOGY RECOMMENDATIONS, <BRICE DARLING M - Last Filed: 04/13/18 17:59> Subjective Reason For Visit: CHF/COPD EXACERBATION Physical Exam Vital Signs: Temp Pulse Resp BP Pulse Ox 98.2 F 74 16 114/72 100 04/13/18 15:13 04/13/18 15:47 04/13/18 15:47 04/13/18 15:13 04/13/18 15:47 Pulse Oximeter Continuous Start: 04/12/18 11: 26 Freq: RTQ4 Status: Active Document 04/13/18 15:47 [facility] (Rec: 04/13/18 16:26 [facility] [email or web address]) Pulse Oximetry Assessment Oxygen Saturation (92-100) 100 Oxygen Delivery Method Room Air Fraction of Inspired Oxygen (FIO2) 21 Equipment Usage Equipment in Use Continuous SpO2 Machine # [id number] Intake & Output 04/12/18 04/13/18 04/14/18 06:59 06:59 06:59 Intake Total 717 992 Output Total 2300 Balance -1583 992 Weight 72.8 kg Results Laboratory Results: 04/13/18 04:35 04/13/18 04:35 04/13/18 04/13/18 04:35 04:35 WBC 18.0 H RBC 3.51 L Hgb 10.8 L Hct 31.4 L MCV 89 MCH 30.8 MCHC 34.5 RDW 13.7 Plt Count 180 Sodium 138.2 Potassium 4.0 Chloride 100 Carbon Dioxide 28 Anion Gap 10 BUN 25 H Creatinine 0.95 Est GFR ( Amer) > 60 Est GFR (Non-Af Amer) > 60 Glucose 202 H Calcium 9.2 Phosphorus 3.4 Magnesium 1.9 Total Bilirubin 0.3 AST 44 ALT 30 Alkaline Phosphatase 65 Total Protein 5.9 L Albumin 3.0 L 04/13/18 04:35 NT-Pro-B Natriuret Pep 57594 H Impressions: Foot X-Ray 04/12/18 00:00 IMPRESSION: No findings to suggest osteomyelitis on plain radiographs. Chest/Abdomen CTA 04/12/18 06:36 IMPRESSION: Congestive heart failure is interstitium alveolar pulmonary edema. No pulmonary emboli. Chronic pancreatitis. Chest X-Ray 04/13/18 00:00 IMPRESSION: Significant improvement in the pulmonary edema pattern seen on 04/12. On the current study, few Devon lines persist at both lung bases, with trace right pleural effusion. Provider Note Provider Note: I have discussed this patient with REMI Ribeiro in detail. I am in agreement with her evaluation and plan.
[2018-04-13] MEDS ORDERED: LEVOFLOXACIN 750 MG/D5W RTU 750 MG/150 ML RTUPB IV SCH (18:00)
--- NOTE | 2018-04-13 19:36 | XCELERA REPORT ---
[address] [address] Transthoracic Echocardiogram Report Name: SIENNASAADIA HANNA JR Age: 67 yrs Gender: Male : 1950 Patient Status: Inpatient Patient Location: [address] [place] [address] Study Date: 04/13/2018 11:26 AM Procedure: A two-dimensional transthoracic echocardiogram with color flow and Doppler was performed. The study was technically limited with all images being suboptimal in quality. Reason For Study: SOB / CHF History: SOB / CHF. Ordering Physician: AGNES MOTT Performed By: Dorita Schmidt Interpretation Summary The left ventricle is mildly to moderately dilated. There is normal left ventricular wall thickness. LV EF is 30% Left ventricular systolic function is severely reduced. Doppler measurements suggest impaired left ventricular relaxation, which is associated with grade I/IV or mild diastolic dysfunction There is severe global hypokinesis of the left ventricle. There is no thrombus. The right ventricle is not well visualized secondary to technical limitations The right atrium is normal. The left atrial size is normal. There is no evidence of mitral valve prolapse. There is no vegetation seen on the mitral valve. There is no mitral valve stenosis. There is a mild amount of mitral regurgitation There is no aortic valve stenosis There is no LVOT obstruction. No aortic regurgitation is present. There is no tricuspid stenosis. There is a trace amount of tricuspid regurgitation Right ventricular systolic pressure is normal. RVSP is 22 to 27 mm of Hg , with RA mean of 5 to 10. There is no pulmonic valvular stenosis. There is no pulmonic valvular regurgitation. The aortic root is not well visualized. There is no pericardial effusion. MMode/2D Measurements & Calculations RVDd: 3.0 cm LVIDd: 6.1 cm FS: 23.6 % Ao root diam: 3.3 cm IVSd: 0.86 cm LVIDs: 4.7 cm EDV(Teich): 190.0 mlAo root area: 8.4 cm2 LVPWd: 0.87 cmESV(Teich): 102.1 ml EF(Teich): 46.3 % LVOT diam: 1.7 cm LVOT area: 2.4 cm2 Doppler Measurements & Calculations MV E max lani: MV dec slope: Ao V2 max: LV V1 max P.7 cm/sec 106.4 cm/sec 3.6 mmHg MV A max lani: 250.8 cm/sec2 Ao max PG: LV V1 max: 71.4 cm/sec MV dec time: 4.5 mmHg 95.3 cm/sec MV E/A: 0.84 0.24 sec BRICE(V,D): 2.1 cm2 PA V2 max: TR max lani: 88.5 cm/sec 207.2 cm/sec PA max PG: TR max P.2 mmHg 3.1 mmHg Left Ventricle The left ventricle is mildly to moderately dilated. There is normal left ventricular wall thickness. LV EF is 30%. Left ventricular systolic function is severely reduced. Doppler measurements suggest impaired left ventricular relaxation, which is associated with grade I/IV or mild diastolic dysfunction. There is severe global hypokinesis of the left ventricle. There is no thrombus. Right Ventricle The right ventricle is not well visualized secondary to technical limitations. Atria The right atrium is normal. The left atrial size is normal. Mitral Valve There is no evidence of mitral valve prolapse. There is no vegetation seen on the mitral valve. There is no mitral valve stenosis. There is a mild amount of mitral regurgitation. Aortic Valve There is no aortic valvular vegetation. There is no aortic valve stenosis. There is no LVOT obstruction. No aortic regurgitation is present. Tricuspid Valve There is no tricuspid stenosis. There is a trace amount of tricuspid regurgitation. Right ventricular systolic pressure is normal. RVSP is 22 to 27 mm of Hg , with RA mean of 5 to 10. Pulmonic Valve There is no pulmonic valvular stenosis. There is no pulmonic valvular regurgitation. Great Vessels The aortic root is not well visualized. Effusions There is no pericardial effusion. : AGNES MOTT > Agnes Mott
[2018-04-14 05:03] LABS: HEMATOCRIT 33.8 % (37.9-51.0); HEMOGLOBIN 11.6 g/dL (13.5-17.0); MEAN CORPUSCULAR HEMOGLOBIN 30.6 pg (27.0-33.4); MEAN CORPUSCULAR HGB CONC 34.2 g/dL (32.0-36.0); MEAN CORPUSCULAR VOLUME 90 fl (80-97); PLATELET COUNT 175 10^3/uL (150-450); RED BLOOD COUNT 3.77 10^6/uL (4.35-5.55); RED CELL DISTRIBUTION WIDTH 13.8 % (11.5-14.0); WHITE BLOOD COUNT 11.2 10^3/uL (4.0-10.5)
[2018-04-14 05:20] LABS: ALANINE AMINOTRANSFERASE 29 U/L (21-72); ALBUMIN 3.1 g/dL (3.5-5.0); ALKALINE PHOSPHATASE 72 U/L (38-126); ANION GAP 12 (5-19); ASPARTATE AMINO TRANSFERASE 38 U/L (17-59); BILIRUBIN,DIRECT 0.3 mg/dL (0.0-0.4); BILIRUBIN,TOTAL 0.3 mg/dL (0.2-1.3); BLOOD UREA NITROGEN 21 mg/dL (7-20); CALCIUM 9.2 mg/dL (8.4-10.2); CARBON DIOXIDE 27 mmol/L (22-30); CHLORIDE 96 mmol/L (98-107); GLUCOSE 155 mg/dL (75-110); POTASSIUM 3.9 mmol/L (3.6-5.0); TOTAL PROTEIN 6.2 g/dL (6.3-8.2)
[2018-04-14] MEDS: GABAPENTIN 300 MG CAPSULE PO SCH ×3 (05:29→21:45)
--- NOTE | 2018-04-14 06:26 | PROGRESS NOTE E ---
Progress Note NAME: SAADIA MARK : 1950 AGE: 67Y DATE: 04/13/2018 ROOM: 302 SUBJECTIVE: The patient denies any chest pain or discomfort. There is no PND or orthopnea. He denies any shortness of breath. He is still producing sputum, which is grayish in color. He denies any chest pain or discomfort. The patient is not wheezing anymore. There is no arrhythmia seen on the monitor. PHYSICAL EXAMINATION: GENERAL: On examination the patient well built and well nourished, at present off the BiPAP. He is well groomed. VITAL SIGNS: He is afebrile with temperature 98.8 degrees Fahrenheit, pulse 69 beats/min, blood pressure 133/89, respirations 20/min, O2 saturation 100% on room air. HEENT: Head is atraumatic, normocephalic. Eyes: Pupils are equal, round and regular, reactive to light. Extraocular movements normal. There is no conjunctival pallor. There is no scleral icterus. ENT is negative. NECK: Supple. There is no JVD today. There are no carotid bruits. Carotids are equal. There is no lymphadenopathy. There is no goiter. Trachea is central. LUNGS: Show diminished air entry with prolongation expiration with scattered rhonchi. There is no wheezing. There are dry crackles right base more than left base and a few bibasilar rales of CHF, which are much decreased compared to yesterday. There is no chest wall tenderness. HEART: S1, S2 is heard. There are no S3 or S4 gallops. There is a systolic murmur at the left sternal border at the apex. There is no rub. ABDOMEN: Soft, nontender. There is no hepatosplenomegaly. Bowel sounds are well heard. There are no tender areas or masses. EXTREMITIES: Femorals are well felt. Leg pulses well felt. There are no femoral bruits. There is no DVT or cellulitis. There is no calf tenderness. CENTRAL NERVOUS SYSTEM: The patient is conscious, awake, alert, oriented x3 with no focal deficit. PSYCHIATRIC: The patient's judgement and insight are intact. His affect is normal. DIAGNOSTICS: The patient's chest x-ray shows improve bibasilar pneumonia. At present there is CHF also cleared. The patient's echo shows mild to moderate LV without LVH. The LV ejection fraction seems to be reduced to 30%. There is severe global hypokinesis. There is mild MR without mitral stenosis or mitral valve prolapse. There is no aortic valve stenosis or aortic regurgitation. There is trace amount of tricuspid regurgitation. Right ventricular systolic pressure is normal at 22-27 mmHg. The patient's white count is 18,000, hemoglobin 10.8, hematocrit 31.4, platelet count 180,000. The patient's sodium is 138.2, potassium 4.0, chloride 100, CO2 28. The patient's BUN is 25, creatinine 0.95, GFR greater than 60. His glucose is not well controlled at 202. His calcium is 9.2, his phosphorus is 3.4, his magnesium is 1.9, his liver function tests were normal. His albumin is 3.0, total protein 5.9, and anti-ProBNP is 16,500. IMPRESSION: 1. Acute hypoxemic respiratory failure, much improved. 2. Acute exacerbation of chronic obstructive pulmonary disease, much improved. 3. Bilateral pneumonia, improving. 4. Focal congestive heart failure, much improved. This seems to be systolic and diastolic acute heart failure. 5. Diabetes mellitus, poorly controlled. 6. Hypertension. 7. History of coronary artery disease and history of old myocardial infarction; no anginal symptoms, but with a severe left ventricular dysfunction. Would strongly recommend the patient have a cardiac catheterization. 8. Depression, seems to be severe, but today seems to be less than what it was yesterday. 9. Gastroesophageal reflux disease. 10. History of hyperlipidemia. 11. Diabetic neuropathy. 12. Nonhealing ulcer of the left big toe. 13. Tobacco abuse disorder. RECOMMENDATIONS: Continue the patient on Levaquin. We will place the patient on Toprol XL and also continue the patient's LATISHA inhibitor. Continue his antipsychotic medications. Continue hypoglycemic precautions. Note, medications were reviewed and medication adjustment/changes recommended to the attending physician on the case. I would slowly increase the patient's Toprol XL as tolerated by the patient. Would recommend strongly in view of patient's LV dysfunction, prior history of MN, that the patient undergo cardiac catheterization. We will discuss with the patient as to when the window is. The patient is not yet ready for catheterization. We will see if the patient can have his cardiac catheterization here at [facility]. We will discuss with the patient. Note, medical decision-making is of high complexity. His medications have been reviewed as mentioned earlier. Note, he is FULL CODE. His is his surrogate healthcare decision-maker. Note, 45 minutes spent on this patient with more than 50% of the time spent on direct patient care. His echo findings were discussed with the patient and the patient's , and also with the attending physician on the case. Dr. Carias will follow the patient in the a.m. Thanking you. DICTATING PHYSICIAN: LIZBET MOTT M.D. [id number] PHY#: [id number] ID: [id number] JOB#: [id number] ACCT: [id number] cc: >
[2018-04-14] MEDS: ENOXAPARIN SODIUM INJ 40 MG/0.4 ML DISP.SYRIN SUBCUT SCH (09:39)
[2018-04-14] MEDS: FAMOTIDINE 20 MG TABLET PO SCH ×2 (09:42→21:45)
[2018-04-14] MEDS: ESCITALOPRAM OXALATE 10 MG TABLET PO SCH (09:42)
[2018-04-14] MEDS: METOPROLOL SUCCINATE 25 MG TAB.SR.24H PO SCH (09:43)
[2018-04-14] MEDS: PAROXETINE HCL 20 MG TABLET PO SCH (09:45)
[2018-04-14] MEDS: FUROSEMIDE INJ/PF 40 MG/4 ML SDV IV SCH (09:46)
[2018-04-14] MEDS: DIVALPROEX SODIUM 250 MG TAB.SR.24H PO SCH (09:46)
[2018-04-14] MEDS: INSULIN LISPRO 100 UNIT/ML 3 ML VIAL SUBCUT PRN ×3 (09:48→21:45)
[2018-04-14] MEDS ORDERED: LISINOPRIL 10 MG TABLET PO SCH (10:00)
--- NOTE | 2018-04-14 11:20 | PDOC PROGRESS REPORT ---
Subjective Progress Note for:: 04/14/18 Subjective:: Patient seems to be doing better with gradual improvement. Pt is denying any chest arm or neck discomfort. Patient denying any PND, orthopnea. Patient denied any sustained palpitations, dizziness, syncope, near syncope. Patient denying any fever chills. Patient denying any other significant discomfort. Patient is maintaining sinus rhythm. Review of systems: Rest review of systems negative. Medications: Medications have been reviewed. Reason For Visit: CHF/COPD EXACERBATION Physical Exam Vital Signs: Temp Pulse Resp BP Pulse Ox 97.8 F 71 18 162/85 H 100 04/14/18 07:23 04/14/18 08:52 04/14/18 08:52 04/14/18 07:23 04/14/18 08:52 Pulse Oximeter Continuous Start: 04/12/18 11: 26 Freq: RTQ4 Status: Active Document 04/14/18 08:52 TPO (Rec: 04/14/18 08:55 TPO [email or web address]) Pulse Oximetry Assessment Oxygen Saturation (92-100) 100 Oxygen Delivery Method Room Air Fraction of Inspired Oxygen (FIO2) 21 Equipment Usage Equipment in Use Continuous SpO2 Machine # 11 Intake & Output 04/13/18 04/14/18 04/15/18 06:59 06:59 06:59 Intake Total 717 3175 Output Total 2300 2525 Balance -1583 650 Weight 72.8 kg 75.2 kg Exam: GENERAL: well-nourished and in no acute distress. Alert and oriented x3 HEAD: Atraumatic, normocephalic. EYES: Pupils equal round and reactive to light, extraocular movements intact, sclera anicteric, conjunctiva are normal. ENT: TMs normal, nares patent, oropharynx clear without exudates. Moist mucous membranes. No oral ulcerations or bleeding gums noted NECK: supple without lymphadenopathy. Trachea is central. No cervical or axillary lymphadenopathy noted. Carotids are 2+, JVD WNL LUNGS: Respiration seems nonlabored, no significant accessory muscle action noted. Breath sounds clear to auscultation bilaterally and equal noted. No wheezes rales or rhonchi noted. No significant dullness noted on percussion. CHEST: Palpation of the chest wall shows no significant chest wall tenderness. HEART: Dewitt [employer], No PSH, 1/6 MONIQUE aortic area, 1/6 moreno systolic murmur mitral area, no rubs, no gallops. ABDOMEN: Soft, no significant tenderness appreciated, normoactive bowel sounds. No guarding, no rebound. No rigidity noted . No masses appreciated. EXTREMITIES: Pedal pulses are 1-2+, no calf tenderness noted. No clubbing or cyanosis. negative pedal edema noted NEUROLOGICAL: Focused neurological exam showed no significant neurologic deficit. Normal speech, no focal weakness appreciated. PSYCH: Normal mood, normal affect. Judgment and insight within normal limits. SKIN: No significant ecchymosis, skin is noted to be warm. MUSCULOSKELETAL EXAM: No significant acute joint swelling noted. Results Laboratory Results: 04/14/18 03:58 04/14/18 03:58 04/14/18 04/14/18 03:58 03:58 WBC 11.2 H RBC 3.77 L Hgb 11.6 L Hct 33.8 L MCV 90 MCH 30.6 MCHC 34.2 RDW 13.8 Plt Count 175 Sodium 135.0 L Potassium 3.9 Chloride 96 L Carbon Dioxide 27 Anion Gap 12 BUN 21 H Creatinine 0.94 Est GFR ( Amer) > 60 Est GFR (Non-Af Amer) > 60 Glucose 155 H Calcium 9.2 Total Bilirubin 0.3 AST 38 ALT 29 Alkaline Phosphatase 72 Total Protein 6.2 L Albumin 3.1 L 04/13/18 04/14/18 04:35 03:58 NT-Pro-B Natriuret Pep 43370 H 6260 H EKG Comments: Sinus rhythm, LVH with secondary ST-T wave changes Impressions: Foot X-Ray 04/12/18 00:00 IMPRESSION: No findings to suggest osteomyelitis on plain radiographs. Chest/Abdomen CTA 04/12/18 06:36 IMPRESSION: Congestive heart failure is interstitium alveolar pulmonary edema. No pulmonary emboli. Chronic pancreatitis. Chest X-Ray 04/13/18 00:00 IMPRESSION: Significant improvement in the pulmonary edema pattern seen on 04/12. On the current study, few Devon lines persist at both lung bases, with trace right pleural effusion. Assessment & Plan - Diagnosis (1) CAD (coronary artery disease) Qualifiers: Coronary Disease-Associated Artery/Lesion type: [place] artery [place] vs. transplanted heart: [place] heart Associated angina: angina presence unspecified Qualified Code(s): I25.10 - Atherosclerotic heart disease of [place] coronary artery without angina pectoris Is this a current diagnosis for this admission?: Yes (2) Acute respiratory failure Qualifiers: Respiratory failure complication: hypoxia Qualified Code(s): J96.01 - Acute respiratory failure with hypoxia Is this a current diagnosis for this admission?: Yes (3) COPD (chronic obstructive pulmonary disease) Qualifiers: Chronic bronchitis type: unspecified Is this a current diagnosis for this admission?: Yes (4) HTN (hypertension) Qualifiers: Hypertension type: essential hypertension Qualified Code(s): I10 - Essential (primary) hypertension Is this a current diagnosis for this admission?: Yes (5) CHF (congestive heart failure) Qualifiers: Heart failure type: combined systolic and diastolic Heart failure chronicity: unspecified Qualified Code(s): I50.40 - Unspecified combined systolic (congestive) and diastolic (congestive) heart failure Is this a current diagnosis for this admission?: Yes - Notes Notes: CAD: Patient has CAD. Currently stable without any angina or angina equivalent symptoms. Discussed symptoms associated with unstable angina, acute coronary syndrome, myocardial infarction etc. Aggressive risk factor modification advised. Acute respiratory failure: Secondary to COPD exacerbation and CHF related. Currently stable. Patient advised to abide first and secondhand smoking. COPD: Patient felt to have severe COPD. Hypertension: Currently well controlled. CHF: Currently seems compensated. Will repeat a chest x-ray. Will place patient on valsartan for preparation to be switched to entresto tomorrow. LV systolic dysfunction: 2D echo was technically difficult due to COPD. Will order a MUGA scan. - Time Time with patient: Greater than 35 minutes - More than 50% of the time spent coordinating care, discussing management plans with involved caregivers. Management plans discussed with involved personnels. Medical decision making was of moderate to high complexity, patient's has multiple comorbidities. Medications reviewed and adjusted accordingly: Yes
[2018-04-14] MEDS: OXYCODONE HCL IR 5 MG TABLET PO PRN ×2 (12:08→18:40)
[2018-04-14] MEDS: LEVOFLOXACIN 750 MG TABLET PO SCH (12:08)
--- NOTE | 2018-04-14 16:08 | PDOC PROGRESS REPORT ---
<BARTOLO GOODWIN - Last Filed: 04/14/18 16:08> Subjective Progress Note for:: 04/14/18 Subjective:: Patient is seen resting in bed. He is presently off oxygen with oxygen saturation of 97%. He denies any chest pain, shortness of breath or dyspnea at rest. He denies any cough at the present time. He states he does become short of breath with moderate activity. He denies any nausea, vomiting or abdominal pain. He denies any diarrhea. He denies any fevers or chills. Remaining review of systems are negative. Reason For Visit: CHF/COPD EXACERBATION Physical Exam Vital Signs: Temp Pulse Resp BP Pulse Ox 97.8 F 71 18 162/85 H 100 04/14/18 07:23 04/14/18 08:52 04/14/18 08:52 04/14/18 07:23 04/14/18 12:39 Pulse Oximeter Continuous Start: 04/12/18 11: 26 Freq: RTQ4 Status: Active Document 04/14/18 12:39 TPO (Rec: 04/14/18 12:39 TPO [email or web address]) Pulse Oximetry Assessment Oxygen Saturation (92-100) 100 Oxygen Delivery Method Room Air Fraction of Inspired Oxygen (FIO2) 21 Equipment Usage Equipment in Use Continuous SpO2 Machine # 11 Intake & Output 04/13/18 04/14/18 04/15/18 06:59 06:59 06:59 Intake Total 717 3175 458 Output Total 2300 2525 1000 Balance -1583 650 -542 Weight 72.8 kg 75.2 kg General appearance: PRESENT: no acute distress, thin, well-developed, well- nourished Head exam: PRESENT: atraumatic, normocephalic Eye exam: PRESENT: conjunctiva pink, EOMI, PERRLA. ABSENT: scleral icterus Ear exam: PRESENT: normal external ear exam Mouth exam: PRESENT: moist, neck supple, tongue midline Teeth exam: PRESENT: edentulous Neck exam: ABSENT: carotid bruit, JVD, lymphadenopathy, thyromegaly Respiratory exam: PRESENT: clear to auscultation deandre, decreased breath sounds, symmetrical, unlabored Cardiovascular exam: PRESENT: RRR. ABSENT: diastolic murmur, rubs, systolic murmur Pulses: PRESENT: normal carotid pulses, normal radial pulses Vascular exam: PRESENT: normal capillary refill GI/Abdominal exam: PRESENT: normal bowel sounds, soft. ABSENT: distended, guarding, mass, organolmegaly, rebound, tenderness Rectal exam: PRESENT: deferred Extremities exam: PRESENT: full ROM. ABSENT: calf tenderness, clubbing, pedal edema Musculoskeletal exam: PRESENT: ambulatory Neurological exam: PRESENT: alert, awake, oriented to person, oriented to place , oriented to time, oriented to situation, CN II-XII grossly intact. ABSENT: motor sensory deficit Psychiatric exam: PRESENT: appropriate affect, normal mood. ABSENT: homicidal ideation, suicidal ideation Skin exam: PRESENT: dry, intact, warm. ABSENT: cyanosis, rash Results Laboratory Results: 04/14/18 03:58 04/14/18 03:58 04/14/18 04/14/18 03:58 03:58 WBC 11.2 H RBC 3.77 L Hgb 11.6 L Hct 33.8 L MCV 90 MCH 30.6 MCHC 34.2 RDW 13.8 Plt Count 175 Sodium 135.0 L Potassium 3.9 Chloride 96 L Carbon Dioxide 27 Anion Gap 12 BUN 21 H Creatinine 0.94 Est GFR ( Amer) > 60 Est GFR (Non-Af Amer) > 60 Glucose 155 H Calcium 9.2 Total Bilirubin 0.3 AST 38 ALT 29 Alkaline Phosphatase 72 Total Protein 6.2 L Albumin 3.1 L 04/13/18 04/14/18 04:35 03:58 NT-Pro-B Natriuret Pep 02907 H 6260 H Impressions: Foot X-Ray 04/12/18 00:00 IMPRESSION: No findings to suggest osteomyelitis on plain radiographs. Chest/Abdomen CTA 04/12/18 06:36 IMPRESSION: Congestive heart failure is interstitium alveolar pulmonary edema. No pulmonary emboli. Chronic pancreatitis. Chest X-Ray 04/13/18 00:00 IMPRESSION: Significant improvement in the pulmonary edema pattern seen on 04/12. On the current study, few Devon lines persist at both lung bases, with trace right pleural effusion. Assessment & Plan - Diagnosis (1) Acute respiratory failure with hypoxemia Is this a current diagnosis for this admission?: Yes Plan: Patient was found to be hypoxemic upon presentation. The combination of acute systolic heart failure in exacerbation of COPD with bronchitis. Today he is able to be off his oxygen. His oxygen saturations have been from 95-97%. Primary function tests revealed mild obstructive pattern. He underwent mucous scan today by Dr. Hernandez. Transthoracic echo shows his EF to be approximately 30 %, with grade 2/4 diastolic dysfunction. (2) CHF (congestive heart failure) QualifierTitle: Heart failure type: combined systolic and diastolic Heart failure chronicity: unspecified Qualified Code(s): I50.40 - Unspecified combined systolic (congestive) and diastolic (congestive) heart failure Is this a current diagnosis for this admission?: Yes Plan: Patient noted to have a EF of 30% on transthoracic echo with grade 2/4 diastolic dysfunction. MUGA scan was done today by Dr. Hernandez. Results are pending. Patient has been diuresed. Is now on room air. Blood pressure is well controlled on current medications (3) New onset of congestive heart failure Is this a current diagnosis for this admission?: Yes Plan: As above (4) Pulmonary edema QualifierTitle: Chronicity: acute Qualified Code(s): J81.0 - Acute pulmonary edema Is this a current diagnosis for this admission?: Yes Plan: Resolved with diuresis. New current medications. (5) Cellulitis QualifierTitle: Site of cellulitis of extremity: lower extremity Laterality: left Is this a current diagnosis for this admission?: Yes Plan: Wound on left foot is improving. Continue oral Levaquin. (6) HTN (hypertension) QualifierTitle: Hypertension type: essential hypertension Qualified Code( s): I10 - Essential (primary) hypertension Is this a current diagnosis for this admission?: Yes Plan: Presently normotensive and current medications. (7) Tobacco abuse Is this a current diagnosis for this admission?: Yes Plan: 10 minutes spent regarding tobacco cessation techniques with patient and his . He is committed to quitting. - Time Time Spent with patient: 25-34 minutes Total Critical Time (Minutes): 25 Smoking Cessation Education: 3 to 10 minutes Medications reviewed and adjusted accordingly: Yes Anticipated discharge: Home Within: within 24 hours <BRICE DARLING - Last Filed: 04/14/18 18:10> Subjective Reason For Visit: CHF/COPD EXACERBATION Physical Exam Vital Signs: Temp Pulse Resp BP Pulse Ox 97.8 F 77 18 162/85 H 100 04/14/18 07:23 04/14/18 14:00 04/14/18 08:52 04/14/18 07:23 04/14/18 12:39 Pulse Oximeter Continuous Start: 04/12/18 11: 26 Freq: RTQ4 Status: Active Document 04/14/18 12:39 TPO (Rec: 04/14/18 12:39 TPO [email or web address]) Pulse Oximetry Assessment Oxygen Saturation (92-100) 100 Oxygen Delivery Method Room Air Fraction of Inspired Oxygen (FIO2) 21 Equipment Usage Equipment in Use Continuous SpO2 Machine # 11 Intake & Output 04/13/18 04/14/18 04/15/18 06:59 06:59 06:59 Intake Total 717 3175 461 Output Total 2300 2525 1000 Balance -1583 650 -539 Weight 72.8 kg 75.2 kg Results Laboratory Results: 04/14/18 03:58 04/14/18 03:58 04/14/18 04/14/18 03:58 03:58 WBC 11.2 H RBC 3.77 L Hgb 11.6 L Hct 33.8 L MCV 90 MCH 30.6 MCHC 34.2 RDW 13.8 Plt Count 175 Sodium 135.0 L Potassium 3.9 Chloride 96 L Carbon Dioxide 27 Anion Gap 12 BUN 21 H Creatinine 0.94 Est GFR ( Amer) > 60 Est GFR (Non-Af Amer) > 60 Glucose 155 H Calcium 9.2 Total Bilirubin 0.3 AST 38 ALT 29 Alkaline Phosphatase 72 Total Protein 6.2 L Albumin 3.1 L 04/13/18 04/14/18 04:35 03:58 NT-Pro-B Natriuret Pep 27218 H 6260 H Impressions: Foot X-Ray 04/12/18 00:00 IMPRESSION: No findings to suggest osteomyelitis on plain radiographs. Chest/Abdomen CTA 04/12/18 06:36 IMPRESSION: Congestive heart failure is interstitium alveolar pulmonary edema. No pulmonary emboli. Chronic pancreatitis. Chest X-Ray 04/13/18 00:00 IMPRESSION: Significant improvement in the pulmonary edema pattern seen on 04/12. On the current study, few Devon lines persist at both lung bases, with trace right pleural effusion. Provider Note Provider Note: I have discussed the patient in detail with REMI Goodwin. I am in agreement with her evaluation and plan.
[2018-04-14] MEDS: VALSARTAN 80 MG TABLET PO SCH (21:45)
--- NOTE | 2018-04-14 22:20 | EKG REPORT ---
SEVERITY:- ABNORMAL ECG - SINUS RHYTHM LVH WITH SECONDARY REPOLARIZATION ABNORMALITY INFERIOR INFARCT, AGE INDETERMINATE BORDERLINE PROLONGED QT INTERVAL : Confirmed by: Lowell Hernandez 14-Apr-2018 22:20:07
[2018-04-15] MEDS: GABAPENTIN 300 MG CAPSULE PO SCH ×3 (05:50→21:22)
[2018-04-15] MEDS: OXYCODONE HCL IR 5 MG TABLET PO PRN ×3 (08:51→19:54)
[2018-04-15] MEDS: INSULIN LISPRO 100 UNIT/ML 3 ML VIAL SUBCUT PRN ×3 (08:53→18:13)
--- NOTE | 2018-04-15 09:22 | EKG REPORT ---
SEVERITY:- ABNORMAL ECG - SINUS RHYTHM LVH WITH SECONDARY REPOLARIZATION ABNORMALITY INFERIOR INFARCT, OLD ANTERIOR ST ELEVATION, PROBABLY DUE TO LVH : Confirmed by: Lowell Hernandez 15-Apr-2018 09:21:50
[2018-04-15] MEDS: ENOXAPARIN SODIUM INJ 40 MG/0.4 ML DISP.SYRIN SUBCUT SCH (09:49)
[2018-04-15] MEDS: METOPROLOL SUCCINATE 25 MG TAB.SR.24H PO SCH (09:50)
[2018-04-15] MEDS: PAROXETINE HCL 20 MG TABLET PO SCH (09:50)
[2018-04-15] MEDS: DIVALPROEX SODIUM 250 MG TAB.SR.24H PO SCH (09:50)
[2018-04-15] MEDS: LEVOFLOXACIN 750 MG TABLET PO SCH (09:50)
[2018-04-15] MEDS: FUROSEMIDE 40 MG TABLET PO SCH (09:51)
[2018-04-15] MEDS: ESCITALOPRAM OXALATE 10 MG TABLET PO SCH (09:51)
[2018-04-15] MEDS: VALSARTAN 80 MG TABLET PO SCH (09:51)
[2018-04-15] MEDS: FAMOTIDINE 20 MG TABLET PO SCH ×2 (09:53→21:22)
--- NOTE | 2018-04-15 11:11 | PDOC PROGRESS REPORT ---
Subjective Progress Note for:: 04/15/18 Subjective:: The patient is resting in his bed this morning. Overall he states that he is feeling better. He is being followed closely by cardiology who is ordered a LifeVest for the patient. This will be delivered today. I have spoken to Dr. Hernandez who is going to initiate in trust O. We are going to change him over to oral diuretics today. We are hopeful that he can be discharged tomorrow. I did discuss this with the patient and he is agreeable. Today he states that he is feeling much better. He denies fever chills. No chest pain or heart palpitations. Shortness of breath has resolved. He has had no nausea vomiting or diarrhea. He is having normal bowel movements. No abdominal pain. No urinary complaints. Reason For Visit: CHF/COPD EXACERBATION Physical Exam Vital Signs: Temp Pulse Resp BP Pulse Ox 98.7 F 70 13 130/68 H 96 04/15/18 07:18 04/15/18 07:18 04/15/18 07:18 04/15/18 07:18 04/15/18 08:10 Pulse Oximeter Continuous Start: 04/12/18 11: 26 Freq: RTQ4 Status: Active Document 04/15/18 08:10 [facility] (Rec: 04/15/18 08:11 [facility] [email or web address]) Pulse Oximetry Assessment Oxygen Saturation (92-100) 96 Oxygen Delivery Method Room Air Fraction of Inspired Oxygen (FIO2) 21 Equipment Usage Equipment Standby Continuous SpO2 Machine # 11 Intake & Output 04/14/18 04/15/18 04/16/18 06:59 06:59 06:59 Intake Total 3175 966 Output Total 2375 1153 Balance 650 -187 Weight 75.2 kg 71.8 kg General appearance: PRESENT: no acute distress, thin, well-developed Head exam: PRESENT: atraumatic, normocephalic Mouth exam: PRESENT: moist, tongue midline Respiratory exam: PRESENT: clear to auscultation deandre. ABSENT: rales, rhonchi, wheezes Cardiovascular exam: PRESENT: RRR. ABSENT: diastolic murmur, rubs, systolic murmur GI/Abdominal exam: PRESENT: normal bowel sounds, soft. ABSENT: distended, guarding, mass, organolmegaly, rebound, tenderness Rectal exam: PRESENT: deferred Extremities exam: PRESENT: full ROM. ABSENT: calf tenderness, clubbing, pedal edema Musculoskeletal exam: PRESENT: ambulatory Neurological exam: PRESENT: alert, awake, oriented to person, oriented to place , oriented to time, oriented to situation, CN II-XII grossly intact. ABSENT: motor sensory deficit Psychiatric exam: PRESENT: appropriate affect, normal mood. ABSENT: homicidal ideation, suicidal ideation Skin exam: PRESENT: dry, intact, warm. ABSENT: cyanosis, rash Results Laboratory Results: 04/14/18 03:58 04/14/18 03:58 04/13/18 04/14/18 04:35 03:58 NT-Pro-B Natriuret Pep 06543 H 6260 H Impressions: Foot X-Ray 04/12/18 00:00 IMPRESSION: No findings to suggest osteomyelitis on plain radiographs. Chest/Abdomen CTA 04/12/18 06:36 IMPRESSION: Congestive heart failure is interstitium alveolar pulmonary edema. No pulmonary emboli. Chronic pancreatitis. Chest X-Ray 04/13/18 00:00 IMPRESSION: Significant improvement in the pulmonary edema pattern seen on 04/12. On the current study, few Devon lines persist at both lung bases, with trace right pleural effusion. Assessment & Plan - Diagnosis (1) Acute respiratory failure with hypoxemia Is this a current diagnosis for this admission?: Yes Plan: Secondary to congestive heart failure exacerbation. Resolved (2) Acute on chronic combined systolic and diastolic CHF (congestive heart failure) Is this a current diagnosis for this admission?: Yes Plan: The patient will be receiving a LifeVest today. He has been diuresed with IV Lasix. I am going to change him to 40 mg of p.o. Lasix. He is being initiated on Entresto. He currently seems to be euvolemic. Hopefully he can be discharged tomorrow morning. (3) New onset of congestive heart failure Is this a current diagnosis for this admission?: Yes Plan: I am going to consult the clinical dietitian for education purposes. (4) Pulmonary edema Qualifiers: Chronicity: acute Qualified Code(s): J81.0 - Acute pulmonary edema Is this a current diagnosis for this admission?: Yes Plan: Resolved (5) Diabetic foot ulcer Is this a current diagnosis for this admission?: Yes Plan: I am going to set the patient up at the wound care clinic in [place] at discharge. This is been there for the past 3 years. He is requesting [place] specifically. He is receiving IV Levaquin as he had some cellulitis at the time of admission. This has resolved (6) Hypertension Is this a current diagnosis for this admission?: Yes Plan: Well-controlled on current regimen. (7) Tobacco dependence Is this a current diagnosis for this admission?: Yes Plan: I have encouraged the patient to quit smoking. (8) Diabetes Is this a current diagnosis for this admission?: Yes Plan: Well-controlled at this point. Continue sliding-scale coverage. (9) Full code status Is this a current diagnosis for this admission?: Yes - Time Time Spent with patient: 25-34 minutes - Inpatient Certification Medical Necessity: Other - Inpatient hospitalization remains necessary. We are changing the patient over to an oral regimen. I want to make sure he remained stable. As he has a diminished ejection fraction and needs a LifeVest. Hopefully this will be delivered late this afternoon. I am hopeful that the patient can be discharged from the hospital first thing in the morning.
--- NOTE | 2018-04-15 11:59 | PDOC PROGRESS REPORT ---
Subjective Progress Note for:: 04/15/18 Subjective:: Patient seems to be doing better with gradual improvement. Pt is denying any chest arm or neck discomfort. Patient denying any PND, orthopnea. Patient denied any sustained palpitations, dizziness, syncope, near syncope. Patient denying any fever chills. Patient denying any other significant discomfort. Patient is maintaining sinus rhythm. Review of systems: Rest review of systems negative. Medications: Medications have been reviewed. Reason For Visit: CHF/COPD EXACERBATION Physical Exam Vital Signs: Temp Pulse Resp BP Pulse Ox 98.7 F 70 13 130/68 H 96 04/15/18 07:18 04/15/18 07:18 04/15/18 07:18 04/15/18 07:18 04/15/18 08:10 Pulse Oximeter Continuous Start: 04/12/18 11: 26 Freq: RTQ4 Status: Active Document 04/15/18 08:10 [facility] (Rec: 04/15/18 08:11 [facility] [email or web address]) Pulse Oximetry Assessment Oxygen Saturation (92-100) 96 Oxygen Delivery Method Room Air Fraction of Inspired Oxygen (FIO2) 21 Equipment Usage Equipment Standby Continuous SpO2 Machine # 11 Intake & Output 04/14/18 04/15/18 04/16/18 06:59 06:59 06:59 Intake Total 3175 966 Output Total 2525 1153 Balance 650 -187 Weight 75.2 kg 71.8 kg Exam: GENERAL: well-nourished and in no acute distress. Alert and oriented x3 HEAD: Atraumatic, normocephalic. EYES: Pupils equal round and reactive to light, extraocular movements intact, sclera anicteric, conjunctiva are normal. ENT: TMs normal, nares patent, oropharynx clear without exudates. Moist mucous membranes. No oral ulcerations or bleeding gums noted NECK: supple without lymphadenopathy. Trachea is central. No cervical or axillary lymphadenopathy noted. Carotids are 2+, JVD WNL LUNGS: Respiration seems nonlabored, no significant accessory muscle action noted. Breath sounds clear to auscultation bilaterally and equal noted. No wheezes rales or rhonchi noted. No significant dullness noted on percussion. CHEST: Palpation of the chest wall shows mild chest wall tenderness. Patient has previous history of any fractures HEART: [place] [employer]ATE, No PSH, 1/6 MONIQUE aortic area, 1/6 moreno systolic murmur mitral area, no rubs, no gallops. ABDOMEN: Soft, no significant tenderness appreciated, normoactive bowel sounds. No guarding, no rebound. No rigidity noted . No masses appreciated. EXTREMITIES: Pedal pulses are 1-2+, no calf tenderness noted. No clubbing or cyanosis. negative pedal edema noted NEUROLOGICAL: Focused neurological exam showed no significant neurologic deficit. Normal speech, no focal weakness appreciated. PSYCH: Normal mood, normal affect. Judgment and insight within normal limits. SKIN: No significant ecchymosis, skin is noted to be warm. MUSCULOSKELETAL EXAM: No significant acute joint swelling noted. Results Laboratory Results: 04/14/18 03:58 04/14/18 03:58 04/13/18 04/14/18 04:35 03:58 NT-Pro-B Natriuret Pep 84611 H 6260 H EKG Comments: Telemetry strip shows sinus rhythm without any sustained tachycardia or bradycardia. EKG shows sinus rhythm with LVH Impressions: Foot X-Ray 04/12/18 00:00 IMPRESSION: No findings to suggest osteomyelitis on plain radiographs. Chest/Abdomen CTA 04/12/18 06:36 IMPRESSION: Congestive heart failure is interstitium alveolar pulmonary edema. No pulmonary emboli. Chronic pancreatitis. Chest X-Ray 04/13/18 00:00 IMPRESSION: Significant improvement in the pulmonary edema pattern seen on 04/12. On the current study, few Devon lines persist at both lung bases, with trace right pleural effusion. Assessment & Plan - Diagnosis (1) CAD (coronary artery disease) Qualifiers: Coronary Disease-Associated Artery/Lesion type: [place] artery [place] vs. transplanted heart: [place] heart Associated angina: angina presence unspecified Qualified Code(s): I25.10 - Atherosclerotic heart disease of [place] coronary artery without angina pectoris Is this a current diagnosis for this admission?: Yes (2) Acute respiratory failure Qualifiers: Respiratory failure complication: hypoxia Qualified Code(s): J96.01 - Acute respiratory failure with hypoxia Is this a current diagnosis for this admission?: Yes (3) COPD (chronic obstructive pulmonary disease) Qualifiers: Chronic bronchitis type: unspecified Is this a current diagnosis for this admission?: Yes (4) HTN (hypertension) Qualifiers: Hypertension type: essential hypertension Qualified Code(s): I10 - Essential (primary) hypertension Is this a current diagnosis for this admission?: Yes (5) CHF (congestive heart failure) Qualifiers: Heart failure type: combined systolic and diastolic Heart failure chronicity: unspecified Qualified Code(s): I50.40 - Unspecified combined systolic (congestive) and diastolic (congestive) heart failure Is this a current diagnosis for this admission?: Yes - Notes Notes: CAD: Patient has CAD. Currently stable without any angina or angina equivalent symptoms. Discussed symptoms associated with unstable angina, acute coronary syndrome, myocardial infarction etc. Aggressive risk factor modification advised. Acute respiratory failure: Secondary to COPD exacerbation and CHF related. Currently stable. Patient advised to abide first and secondhand smoking. COPD: Patient felt to have severe COPD. Hypertension: Currently well controlled. CHF: Currently seems compensated. Will repeat a chest x-ray. Will place patient on valsartan for preparation to be switched to entresto tomorrow. LV systolic dysfunction: 2D echo was technically difficult due to COPD. MUGA scan preliminary results shows EF of 32%. Have arranged patient to have a LifeVest placed prior to discharge. Patient has been advised to quit smoking. Will optimize therapy and add entresto to patient's current regimen. - Time Time with patient: Greater than 35 minutes - More than 50% of the time spent coordinating care, discussing management plans with involved caregivers. Management plans discussed with involved personnels. Medical decision making was of moderate to high complexity, patient's has multiple comorbidities. Medications reviewed and adjusted accordingly: Yes
--- NOTE | 2018-04-15 16:31 | Pulmonary Function Test ---
Pulmonary Function Test Date of Procedure:: 04/13/18 INDICATION:: Dyspnea Referring Provider: Kierra Peralta NP Vice President Payer: Dominique [employer] - Report Spirometry: FVC 4.36 L 99% postbronchodilator 5.20 L 117% FEV1 2.95 L 84% postbronchodilator 3.86 L 109% FEV1/FVC % 67 postbronchodilator 74 predicted 80 FEF 25-75% 2.64 L 75% postbronchodilator 4.25 L 121% Impression: Mild obstructive ventilatory defect is confirmed by the decrease FEV1/FVC %. Postbronchodilator measurements did not meet ATS requirements
[2018-04-15] MEDS: SACUBITRIL/VALSARTAN 49 MG/51 MG TABLET PO SCH (18:13)
[2018-04-16] MEDS: OXYCODONE HCL IR 5 MG TABLET PO PRN ×2 (00:54→05:07)
[2018-04-16] MEDS: GABAPENTIN 300 MG CAPSULE PO SCH (05:07)
[2018-04-16] MEDS: SACUBITRIL/VALSARTAN 49 MG/51 MG TABLET PO SCH (05:07)
[2018-04-16 07:58] LABS: ANION GAP 12 (5-19); BLOOD UREA NITROGEN 31 mg/dL (7-20); CALCIUM 8.9 mg/dL (8.4-10.2); CARBON DIOXIDE 25 mmol/L (22-30); CHLORIDE 93 mmol/L (98-107); GLUCOSE 241 mg/dL (75-110); POTASSIUM 4.4 mmol/L (3.6-5.0); SODIUM 130.3 mmol/L (137-145)
[2018-04-16] MEDS: INSULIN LISPRO 100 UNIT/ML 3 ML VIAL SUBCUT PRN (08:19)
[2018-04-16] MEDS: ENOXAPARIN SODIUM INJ 40 MG/0.4 ML DISP.SYRIN SUBCUT SCH (10:25)
[2018-04-16] MEDS: ESCITALOPRAM OXALATE 10 MG TABLET PO SCH (10:26)
[2018-04-16] MEDS: FAMOTIDINE 20 MG TABLET PO SCH (10:26)
[2018-04-16] MEDS: DIVALPROEX SODIUM 250 MG TAB.SR.24H PO SCH (10:26)
[2018-04-16] MEDS: METOPROLOL SUCCINATE 25 MG TAB.SR.24H PO SCH (10:26)
[2018-04-16] MEDS: LEVOFLOXACIN 750 MG TABLET PO SCH (10:26)
[2018-04-16] MEDS: PAROXETINE HCL 20 MG TABLET PO SCH (10:26)
[2018-04-16] MEDS: FUROSEMIDE 40 MG TABLET PO SCH (10:26)
--- NOTE | 2018-04-16 11:11 | PDOC DISCHARGE SUMMARY ---
General - Admit/Disc Date/PCP Admission Date/Primary Care Provider: 04/12/18 11:18 supervising law enforcement analyst: [facility] Lead Refinery Supervisor: Dr. Hernandez Wound care clinic in [facility] Discharge Date: 04/16/18 - Discharge Diagnosis (1) Acute respiratory failure with hypoxemia Is this a current diagnosis for this admission?: Yes Summary: Secondary to decompensated heart failure. Resolved (2) Acute on chronic combined systolic and diastolic CHF (congestive heart failure) Is this a current diagnosis for this admission?: Yes Summary: Currently euvolemic. Continue 40 mg of p.o. Lasix daily (3) New onset of congestive heart failure Is this a current diagnosis for this admission?: Yes Summary: He has been started on metoprolol and Entresto. He will continue Lasix. He will follow-up with Dr. Hernandez as an outpatient. MUGA preliminary results reveal an EF possibly less than 35%. Dr. Hernandez has arranged for a LifeVest which the patient has received prior to leaving the hospital. (4) Pulmonary edema Is this a current diagnosis for this admission?: Yes Summary: Resolved (5) Diabetic foot ulcer Is this a current diagnosis for this admission?: Yes Summary: I am setting him up an appointment to follow-up at the wound care clinic in [place] at his request. He did have evidence of cellulitis at the time of admission and he will complete a course of p.o. therapy. (6) Hypertension Is this a current diagnosis for this admission?: Yes Summary: Adequately controlled (7) Tobacco dependence Is this a current diagnosis for this admission?: Yes Summary: Certainly it would be in his best interest to quit smoking (8) Diabetes Is this a current diagnosis for this admission?: Yes Summary: Blood sugars have been uncontrolled but he was not on his home regimen. He will resume his home regimen and follow-up closely as an outpatient. (9) Hyponatremia Is this a current diagnosis for this admission?: Yes Summary: He does have worsening hyponatremia possibly due to overdiuresis. His IV Lasix was stopped yesterday. I did discuss his hyponatremia with Dr. Hernandez prior to discharge. He felt as if he was stable for discharge. This will need to be rechecked next week. (10) Full code status Is this a current diagnosis for this admission?: Yes - Additional Information Resuscitation Status: Full Code Discharge Diet: Cardiac, Diabetic Discharge Activity: Activity As Tolerated, Balance Activity w/Rest, Energy Conservation, Weigh Daily Prescriptions: Furosemide [Lasix 40 mg Tablet] 40 mg PO DAILY #30 tablet Levofloxacin [Levaquin 750 mg Tablet] 750 mg PO DAILY #5 tablet Metoprolol Succinate [Toprol Xl 25 mg Tab.sr] 25 mg PO DAILY #30 tab.sr.24h Sacubitril/Valsartan [Entresto 49 mg/51 mg Tablet] 1 tab PO Q12A #60 tablet Home Medications: Gabapentin [Neurontin 300 mg Capsule] 600 mg PO TID 04/20/15 Paroxetine HCl [Paxil] 60 mg PO DAILY 08/30/15 Divalproex Sodium [Divalproex Sodium ER] 500 mg PO DAILY 12/31/17 Metformin HCl 2 tab PO QAM 12/31/17 Insulin Glargine,Hum.rec.anlog [Lantus Insulin 100 Unit/1 ml 10 ml] 32 unit SQ DAILY 04/12/18 Furosemide [Lasix 40 mg Tablet] 40 mg PO DAILY #30 tablet 04/16/18 Levofloxacin [Levaquin 750 mg Tablet] 750 mg PO DAILY #5 tablet 04/16/18 Metoprolol Succinate [Toprol Xl 25 mg Tab.sr] 25 mg PO DAILY #30 tab.sr.24h Sacubitril/Valsartan [Entresto 49 mg/51 mg Tablet] 1 tab PO Q12A #60 tablet History of Present Illness History of Present Illness: SAADIA MARK JR is a 67 year old male who presented to the emergency room with increased shortness of breath. Hospital Course Hospital Course: The patient is a 67-year-old male who presented to the emergency room with chest tightness and shortness of breath. Chest x-ray in the emergency room revealed bilateral interstitial edema. His BNP was elevated at 5120. He did have a CTA of the chest with no evidence of pneumonia or pulmonary embolism. Shortly after he arrived at the emergency room he became quite hypoxic and his O2 sats dropped into the low 80s. He was placed on BiPAP and given IV Lasix. He has been followed closely by cardiology. He had an echocardiogram which revealed diastolic dysfunction and a left ventricular ejection fraction of 30%. He had no significant valvular disease and right ventricular systolic pressures were normal. The patient has had a MUGA scan and the preliminary results are consistent with this ejection fraction. Dr. Hernandez has recommended a LifeVest for the patient and this has been delivered to the hospital and the patient is wearing it on the day of discharge. His medications have been maximized and he has been transitioned off of IV Lasix to 40 mg of p.o. Lasix daily. He has been started on metoprolol as well as entresto. In addition the patient has a diabetic foot ulcer on the plantar surface of his foot under his great toe. He states this is been ppresent for quite some time. He was treated with IV Levaquin and will complete a course of p.o. Levaquin as an outpatient as he did have some cellulitis. I have recommended that the patient follow-up at a wound care clinic. He wishes to go to the wound care clinic in [place] and an appointment is being scheduled at the time of discharge. Also the patient does have some worsening hyponatremia. I did discuss this with Dr. Hernandez prior to discharge and he feels as if the patient can be safely discharged with close outpatient follow-up. He will need a repeat chemistry panel next week. He will follow-up with Dr. Hernandez next week and we are [facility]. At this point maximum hospital benefit has been reached. The patient has been weaned off of oxygen and currently is euvolemic. He will be discharged home today in stable condition. Physical Exam Vital Signs: Temp Pulse Resp BP Pulse Ox 97.7 F 73 12 112/74 100 04/16/18 08:05 04/16/18 08:05 04/16/18 08:05 04/16/18 08:05 04/16/18 08:05 Pulse Oximeter Continuous Start: 04/12/18 11: 26 Freq: RTQ4 Status: Active Document 04/16/18 08:00 [facility] (Rec: 04/16/18 10:24 [facility] [email or web address]) Pulse Oximetry Assessment Equipment Usage Equipment Standby Continuous SpO2 Machine # [id number] Intake & Output 04/15/18 04/16/18 04/17/18 06:59 06:59 06:59 Intake Total 966 4563 Output Total 1153 Balance -187 4563 Weight 71.8 kg 74.5 kg General appearance: PRESENT: no acute distress, thin, well-developed, well- nourished Head exam: PRESENT: atraumatic, normocephalic Mouth exam: PRESENT: moist, tongue midline Respiratory exam: PRESENT: clear to auscultation deandre. ABSENT: rales, rhonchi, wheezes Cardiovascular exam: PRESENT: RRR. ABSENT: diastolic murmur, rubs, systolic murmur GI/Abdominal exam: PRESENT: normal bowel sounds, soft. ABSENT: distended, guarding, mass, organolmegaly, rebound, tenderness Rectal exam: PRESENT: deferred Extremities exam: PRESENT: full ROM, other - Diabetic foot ulcer on plantar surface of right foot. ABSENT: calf tenderness, clubbing, pedal edema Musculoskeletal exam: PRESENT: ambulatory Neurological exam: PRESENT: alert, awake, oriented to person, oriented to place , oriented to time, oriented to situation, CN II-XII grossly intact. ABSENT: motor sensory deficit Psychiatric exam: PRESENT: appropriate affect, normal mood. ABSENT: homicidal ideation, suicidal ideation Skin exam: PRESENT: dry, intact, warm. ABSENT: cyanosis, rash Results Laboratory Results: 04/14/18 03:58 04/16/18 07:10 04/16/18 04/16/18 07:10 07:10 Sodium 130.3 L Potassium 4.4 Chloride 93 L Carbon Dioxide 25 Anion Gap 12 BUN 31 H Creatinine 1.01 Est GFR ( Amer) > 60 Est GFR (Non-Af Amer) > 60 Glucose 241 H Calcium 8.9 Magnesium 1.6 04/13/18 18:50 Foot - Diabetic Ulcer Gram Stain - Final 04/13/18 09:35 Sputum Gram Stain - Final 04/13/18 09:35 Sputum Sputum Culture - Final NORMAL SHAINA 04/13/18 04/14/18 04:35 03:58 NT-Pro-B Natriuret Pep 42057 H 6260 H Impressions: Foot X-Ray 04/12/18 00:00 IMPRESSION: No findings to suggest osteomyelitis on plain radiographs. Chest/Abdomen CTA 04/12/18 06:36 IMPRESSION: Congestive heart failure is interstitium alveolar pulmonary edema. No pulmonary emboli. Chronic pancreatitis. Chest X-Ray 04/13/18 00:00 IMPRESSION: Significant improvement in the pulmonary edema pattern seen on 04/12. On the current study, few [place] lines persist at both lung bases, with trace right pleural effusion. Qualifiers - * PATIENT BEING DISCHARGED WITH ANY OF THE FOLLOWING DIAGNOSIS: Heart Failure HF Pt being discharged on ACEI for LVEF less than 40%?: Yes HF Pt being discharged on ARBS for LVEF less than 40%?: Yes HF Pt with Afib discharged with Warfarin?: No Reason(s) for not prescribing Warfarin:: Not indicated HF Pt discharged on evidence-based Beta Bill:: Yes Plan Discharge Plan: The patient will be discharged today in stable condition. Follow-up with Dr. Hernandez next week. [facility] Follow-up at wound care clinic in [place] as scheduled He will need a chemistry panel drawn next week to check his sodium level Time Spent: Greater than 30 Minutes
[2018-04-16 11:31] VITALS: BP 114/92
--- NOTE | 2018-04-16 13:04 | PDOC PROGRESS REPORT ---
Subjective Progress Note for:: 04/16/18 Subjective:: Patient seems to be doing better with gradual improvement. Pt is denying any chest arm or neck discomfort. Patient denying any PND, orthopnea. Patient denied any sustained palpitations, dizziness, syncope, near syncope. Patient denying any fever chills. Patient denying any other significant discomfort. Patient is maintaining sinus rhythm. Patient had LifeVest placed yesterday. He is comfortable with use of it and is currently has it on. MUGA scan report reviewed. It shows EF of 32%. Review of systems: Rest review of systems negative. Medications: Medications have been reviewed. Reason For Visit: CHF/COPD EXACERBATION Physical Exam Vital Signs: Temp Pulse Resp BP Pulse Ox 97.7 F 73 12 114/92 H 100 04/16/18 11:29 04/16/18 11:29 04/16/18 11:29 04/16/18 11:29 04/16/18 11:29 Pulse Oximeter Continuous Start: 04/12/18 11: 26 Freq: RTQ4 Status: Active Document 04/16/18 11:24 LDA (Rec: 04/16/18 11:24 LDA [email or web address]) Pulse Oximetry Assessment Equipment Usage Equipment Standby Continuous SpO2 Machine # [id number] Intake & Output 04/15/18 04/16/18 04/17/18 06:59 06:59 06:59 Intake Total 966 4563 Output Total 1153 Balance -187 4563 Weight 71.8 kg 74.5 kg Exam: GENERAL: well-nourished and in no acute distress. Alert and oriented x3 HEAD: Atraumatic, normocephalic. EYES: Pupils equal round and reactive to light, extraocular movements intact, sclera anicteric, conjunctiva are normal. ENT: TMs normal, nares patent, oropharynx clear without exudates. Moist mucous membranes. No oral ulcerations or bleeding gums noted NECK: supple without lymphadenopathy. Trachea is central. No cervical or axillary lymphadenopathy noted. Carotids are 2+, JVD WNL LUNGS: Respiration seems nonlabored, no significant accessory muscle action noted. Breath sounds clear to auscultation bilaterally and equal noted. No wheezes rales or rhonchi noted. No significant dullness noted on percussion. CHEST: Palpation of the chest wall shows no significant chest wall tenderness. HEART: [place] TILE SETTER, No PSH, 1/6 MONIQUE aortic area, 1/6 moreno systolic murmur mitral area, no rubs, no gallops. ABDOMEN: Soft, no significant tenderness appreciated, normoactive bowel sounds. No guarding, no rebound. No rigidity noted . No masses appreciated. EXTREMITIES: Pedal pulses are 1-2+, no calf tenderness noted. No clubbing or cyanosis. negative pedal edema noted NEUROLOGICAL: Focused neurological exam showed no significant neurologic deficit. Normal speech, no focal weakness appreciated. PSYCH: Normal mood, normal affect. Judgment and insight within normal limits. SKIN: No significant ecchymosis, skin is noted to be warm. MUSCULOSKELETAL EXAM: No significant acute joint swelling noted. Results Laboratory Results: 04/14/18 03:58 04/16/18 07:10 04/16/18 04/16/18 07:10 07:10 Sodium 130.3 L Potassium 4.4 Chloride 93 L Carbon Dioxide 25 Anion Gap 12 BUN 31 H Creatinine 1.01 Est GFR ( Amer) > 60 Est GFR (Non-Af Amer) > 60 Glucose 241 H Calcium 8.9 Magnesium 1.6 04/13/18 18:50 Foot - Diabetic Ulcer Gram Stain - Final 04/13/18 09:35 Sputum Gram Stain - Final 04/13/18 09:35 Sputum Sputum Culture - Final NORMAL SHAINA 04/13/18 04/14/18 04:35 03:58 NT-Pro-B Natriuret Pep 73345 H 6260 H Impressions: Foot X-Ray 04/12/18 00:00 IMPRESSION: No findings to suggest osteomyelitis on plain radiographs. Chest/Abdomen CTA 04/12/18 06:36 IMPRESSION: Congestive heart failure is interstitium alveolar pulmonary edema. No pulmonary emboli. Chronic pancreatitis. Chest X-Ray 04/13/18 00:00 IMPRESSION: Significant improvement in the pulmonary edema pattern seen on 04/12. On the current study, few [place] lines persist at both lung bases, with trace right pleural effusion. Assessment & Plan - Diagnosis (1) CAD (coronary artery disease) Qualifiers: Coronary Disease-Associated Artery/Lesion type: [place] artery [place] vs. transplanted heart: [place] heart Associated angina: angina presence unspecified Qualified Code(s): I25.10 - Atherosclerotic heart disease of [place] coronary artery without angina pectoris Is this a current diagnosis for this admission?: Yes (2) Acute respiratory failure Qualifiers: Respiratory failure complication: hypoxia Qualified Code(s): J96.01 - Acute respiratory failure with hypoxia Is this a current diagnosis for this admission?: Yes (3) COPD (chronic obstructive pulmonary disease) Qualifiers: Chronic bronchitis type: unspecified Is this a current diagnosis for this admission?: Yes (4) HTN (hypertension) Qualifiers: Hypertension type: essential hypertension Qualified Code(s): I10 - Essential (primary) hypertension Is this a current diagnosis for this admission?: Yes (5) CHF (congestive heart failure) Qualifiers: Heart failure type: combined systolic and diastolic Heart failure chronicity: unspecified Qualified Code(s): I50.40 - Unspecified combined systolic (congestive) and diastolic (congestive) heart failure Is this a current diagnosis for this admission?: Yes - Notes Notes: CAD: Patient has CAD. Currently stable without any angina or angina equivalent symptoms. Discussed symptoms associated with unstable angina, acute coronary syndrome, myocardial infarction etc. Aggressive risk factor modification advised. Patient has been advised to quit smoking. Acute respiratory failure: Secondary to COPD exacerbation and CHF related. Currently stable. Patient advised to abide first and secondhand smoking. COPD: Patient felt to have severe COPD. Hypertension: Currently well controlled. CHF: Currently seems compensated. Will repeat a chest x-ray. Patient was switched to entresto therapy. He is tolerating that well. Patient can be discharged on that therapy. CHF pathway discussed. This includes salt and fluid restriction, daily weighing. Patient also advised on regular walking program. These instructions were given to the patient. LV systolic dysfunction: 2D echo was technically difficult due to COPD. MUGA scan preliminary results shows EF of 32%. Prophylactic external defibrillator, LifeVest placed. Patient has been advised to quit smoking. Patient can follow-up with me or interior painter of his choice. Discussed need for close cardiology follow-up. - Time Time with patient: Greater than 35 minutes Medications reviewed and adjusted accordingly: Yes
== END 2018-04-16 13:39 | disposition home or self-care (01) | DRG 190 ==
LOC: ER 05:19 → EH 11:18 → 3N 14:54
PROVIDERS: ADMIT Student in an Organized Health Care Education/Training Program; ATTEND Student in an Organized Health Care Education/Training Program
PROC: 3E0F73Z Introduction of Anti-inflammatory into Respiratory Tract, Via Natural or Artificial Opening (ICD-10-PCS; principal; 2018-04-12)
PROC: 5A09357 Assistance with Respiratory Ventilation, Less than 24 Consecutive Hours, Continuous Positive Airway Pressure (ICD-10-PCS; 2018-04-12)
DX: J44.1 Chronic obstructive pulmonary disease with (acute) exacerbation (principal); J96.01 Acute respiratory failure with hypoxia; J81.0 Acute pulmonary edema; J18.9 Pneumonia, unspecified organism; I50.43 Acute on chronic combined systolic (congestive) and diastolic (congestive) heart failure; J81.1 Chronic pulmonary edema; E87.1 Hypo-osmolality and hyponatremia; K86.1 Other chronic pancreatitis; L03.116 Cellulitis of left lower limb; E11.621 Type 2 diabetes mellitus with foot ulcer; L97.529 Non-pressure chronic ulcer of other part of left foot with unspecified severity; I11.0 Hypertensive heart disease with heart failure; E11.65 Type 2 diabetes mellitus with hyperglycemia; F32.9 Major depressive disorder, single episode, unspecified; K21.9 Gastro-esophageal reflux disease without esophagitis; E11.40 Type 2 diabetes mellitus with diabetic neuropathy, unspecified; I25.10 Atherosclerotic heart disease of native coronary artery without angina pectoris; E78.00 Pure hypercholesterolemia, unspecified; M19.90 Unspecified osteoarthritis, unspecified site; K58.9 Irritable bowel syndrome, unspecified; I07.1 Rheumatic tricuspid insufficiency; J44.0 Chronic obstructive pulmonary disease with (acute) lower respiratory infection; F17.210 Nicotine dependence, cigarettes, uncomplicated; R00.0 Tachycardia, unspecified; I25.2 Old myocardial infarction; Z87.820 Personal history of traumatic brain injury; Z87.11 Personal history of peptic ulcer disease; Z86.73 Personal history of transient ischemic attack (TIA), and cerebral infarction without residual deficits; Z79.899 Other long term (current) drug therapy; Z96.652 Presence of left artificial knee joint; Z89.422 Acquired absence of other left toe(s); Z83.3 Family history of diabetes mellitus; Z82.49 Family history of ischemic heart disease and other diseases of the circulatory system
CPT/HCPCS: 36415; 71045; 71275; 78472; 80048; 80053; 80164; 80307; 81001; 82803; 82962; 83690; 83735; 83880; 84100; 84484; 85025; 85027; 87070; 87075; 87077; 87186; 87205; 93005; 93010; 93306; 94060; 94660; 94762; 96361; 96374; 99291; A9538; J1650; J1815; J1940; J1956; J2930; J3475; J3490; J7620; Q9969

== ENCOUNTER 2018-05-20 19:38 | Emergency (ER) | payer OTHER, MEDICARE ==
[2018-05-20 19:58] VITALS: BP 136/88
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
== END 2018-05-20 23:00 | disposition left against medical advice (07) ==
LOC: ER 19:38
DX: E11.621 Type 2 diabetes mellitus with foot ulcer (principal); L97.521 Non-pressure chronic ulcer of other part of left foot limited to breakdown of skin; M79.672 Pain in left foot; Z86.73 Personal history of transient ischemic attack (TIA), and cerebral infarction without residual deficits; Z96.652 Presence of left artificial knee joint
CPT/HCPCS: 99281

== ENCOUNTER 2018-05-23 12:40 | Inpatient (IN) | payer OTHER, MEDICARE ==
[2018-05-23] MEDS ORDERED: VANCOMYCIN HCL INJ 1000 MG VIAL IV ONE (13:25)
[2018-05-23] MEDS ORDERED: FENTANYL CITRATE INJ/PF 100 MCG/2 ML AMPUL IV ONE (13:25)
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
[2018-05-23 14:26] LABS: ABSOLUTE BASOPHILS # (AUTO) 0.1 10^3/uL (0.0-0.2); ABSOLUTE EOSINOPHILS # (AUTO) 0.2 10^3/uL (0.0-0.6); ABSOLUTE LYMPHOCYTES (AUTO) 1.8 10^3/uL (0.5-4.7); ABSOLUTE MONOCYTES (AUTO) 1.3 10^3/uL (0.1-1.4); ABSOLUTE NEUT (AUTO) 6.8 10^3/uL (1.7-8.2); EOSINOPHILS % (AUTO) 2.2 % (0-6); HEMATOCRIT 36.5 % (37.9-51.0); HEMOGLOBIN 12.5 g/dL (13.5-17.0); LYMPHOCYTES % (AUTO) 17.9 % (13-45); MEAN CORPUSCULAR HEMOGLOBIN 30.7 pg (27.0-33.4); MEAN CORPUSCULAR HGB CONC 34.3 g/dL (32.0-36.0); MEAN CORPUSCULAR VOLUME 90 fl (80-97); MONOCYTES % (AUTO) 12.5 % (3-13); PLATELET COUNT 224 10^3/uL (150-450); RED BLOOD COUNT 4.07 10^6/uL (4.35-5.55); RED CELL DISTRIBUTION WIDTH 13.6 % (11.5-14.0); SEGMENTED NEUTROPHILS % (AUTO) 66.4 % (42-78); TOTAL CELLS COUNTED % (AUTO) 100 %; WHITE BLOOD COUNT 10.2 10^3/uL (4.0-10.5)
--- NOTE | 2018-05-23 14:32 | RADIOLOGY REPORT (SQ) ---
EXAM DESCRIPTION: FOOT LEFT COMPLETE COMPLETED DATE/TIME: 05/23/2018 2:12 pm REASON FOR STUDY: concern for osteo COMPARISON: 04/12/2018 NUMBER OF VIEWS: Three views. TECHNIQUE: AP, lateral and oblique radiographic images acquired of the left foot. LIMITATIONS: None. FINDINGS: MINERALIZATION: Normal. BONES: No acute fracture or dislocation. Again there is amputation of the 2nd and 3rd digits at the level of the distal metatarsals. Again there is no plain film evidence for bony involvement by osteo myelitis. JOINTS: Severe hallux valgus is again identified. Degenerative changes are again identified at the l evel of the MTP joint of the 4th digit. SOFT TISSUES: No soft tissue swelling. No foreign body. OTHER: No other significant finding. IMPRESSION: No significant interval change from the previous study. No plain film evidence for bony involvement by osteomyelitis. Other findings as noted above TECHNICAL DOCUMENTATION: JOB ID: [id number] [employer]- All Rights Reserved Reading location - IP/workstation name: [email or web address]
[2018-05-23 14:50] LABS: ALANINE AMINOTRANSFERASE 26 U/L (21-72); ALBUMIN 3.4 g/dL (3.5-5.0); ALKALINE PHOSPHATASE 83 U/L (38-126); ANION GAP 11 (5-19); ASPARTATE AMINO TRANSFERASE 18 U/L (17-59); BILIRUBIN,DIRECT 0.3 mg/dL (0.0-0.4); BILIRUBIN,TOTAL 0.4 mg/dL (0.2-1.3); BLOOD UREA NITROGEN 18 mg/dL (7-20); CALCIUM 9.3 mg/dL (8.4-10.2); CARBON DIOXIDE 27 mmol/L (22-30); CHLORIDE 97 mmol/L (98-107); GLUCOSE 221 mg/dL (75-110); POTASSIUM 5.4 mmol/L (3.6-5.0); SODIUM 134.5 mmol/L (137-145); TOTAL PROTEIN 6.8 g/dL (6.3-8.2)
[2018-05-23] MEDS ORDERED: ONDANSETRON HCL INJ/PF 4 MG/2 ML SDV IV PRN (17:51)
[2018-05-23] MEDS ORDERED: ACETAMINOPHEN 325 MG TABLET PO PRN (17:51)
[2018-05-23] MEDS: OXYCODONE-ACETAMINOPHEN 5-325 MG TABLET PO PRN (19:21)
[2018-05-23] MEDS ORDERED: HYDROMORPHONE HCL INJ/PF 2 MG/ML AMPULE ONE (21:36)
[2018-05-23] MEDS ORDERED: FAMOTIDINE 20 MG TABLET PO SCH (22:00)
[2018-05-24] MEDS: OXYCODONE-ACETAMINOPHEN 5-325 MG TABLET PO PRN (01:20)
[2018-05-24] MEDS: HYDROMORPHONE HCL INJ/PF 2 MG/ML AMPULE IV PRN ×2 (01:21→05:46)
[2018-05-24] MEDS ORDERED: DEXTROSE 50%-WATER 25 GM/50 ML DISP.SYRIN IV PRN ×2 (05:11)
[2018-05-24] MEDS ORDERED: DEXTROSE 40% GEL 15 GM TUBE PO PRN ×2 (05:11)
[2018-05-24] MEDS ORDERED: GLUCAGON,HUMAN RECOMB 1 MG INJ IM PRN (05:11)
[2018-05-24] MEDS ORDERED: INSULIN GLARGINE,HUM.REC.ANLOG 300 UNIT/3 ML INSULN.PEN SUBCUT SCH (05:15)
[2018-05-24] MEDS ORDERED: INSULIN GLARGINE,HUM.REC.ANLOG 1,000 UNIT/10 ML UNIT SUBCUT ONE (05:31)
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
[2018-05-24] MEDS ORDERED: CEFTRIAXONE RTU 1 GM/D5W 50 ML IV SCH ×2 (06:00→08:00)
[2018-05-24] MEDS ORDERED: SACUBITRIL/VALSARTAN 49 MG/51 MG TABLET PO SCH (06:00)
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
[2018-05-24] MEDS ORDERED: ENOXAPARIN SODIUM INJ 40 MG/0.4 ML DISP.SYRIN SUBCUT SCH (10:00)
[2018-05-24] MEDS ORDERED: CEFTRIAXONE SODIUM 1,000 MG in NORMAL SALINE 50 ML IV SCH (10:00)
[2018-05-24] MEDS ORDERED: PIPERACILLIN/TAZOBACTAM 3.375 GM VIAL IV SCH (10:00)
[2018-05-24] MEDS ORDERED: PAROXETINE HCL 20 MG TABLET PO SCH (10:00)
[2018-05-24] MEDS ORDERED: INSULIN GLARGINE,HUM.REC.ANLOG 1,000 UNIT/10 ML UNIT SUBCUT SCH (10:00)
[2018-05-24] MEDS ORDERED: INSULIN LISPRO 100 UNIT/ML 3 ML VIAL SUBCUT PRN (11:02)
--- NOTE | 2018-05-24 11:07 | RADIOLOGY REPORT (SQ) ---
EXAM DESCRIPTION: MRI LT LOWER EXTREMITY COMBO COMPLETED DATE/TIME: 05/24/2018 10:41 am REASON FOR STUDY: r/o osto left foot/ left foot MRI only, no leg COMPARISON: Foot radiographs from 04/12/2018 and 05/23/2018. TECHNIQUE: Multiplanar imaging of the left forefoot to include T1-weighted, postcontrast T1-weighted , and T2-weighted images. CONTRAST TYPE AND DOSE: 10 mL [employer]. RENAL FUNCTION: GFR > 60. LIMITATIONS: Patient reportedly had previous amputations several years ago, now with open wound and swelling. The exact site or sites of clinical concern are not indicated. Most of the sequences are at least moderately limited by motion artifact. Some of the sequences are markedly limited. FINDINGS: BONE MARROW: Pronounced hallux valgus with marrow edema in the distal great toe metatarsal and proximal phalanx. Edema is seen particularly in the metatarsal head where there appears to be o verlying ulcer. Changes are seen here on both T1 and T2 sequences, suspicious for osteomyelitis. 2n d and 3rd toe metatarsal amputation sites look sharp and normal and without edema. Potential minimal edema in the pinky toe, however this may largely be artifact. SOFT TISSUES: As above. No drainable fluid collections. No other definite soft tissue defects, alth ough motion limits. OTHER: No other significant finding. IMPRESSION: 1. Soft tissue ulcer along the great toe MTP joint. There is underlying edema in the m etatarsal head consistent with osteomyelitis. As above, this study is significantly limited (comprom ised by motion). Reading location - IP/workstation name: [email or web address]
[2018-05-24] MEDS: PIPERACILLIN SODIUM/TAZOBACTAM 3.375 GM in NORMAL SALINE 100 ML IV SCH ×3 (11:18→21:48)
[2018-05-24] MEDS: ASPIRIN 81 MG TABLET, CHEWABLE PO SCH (11:19)
[2018-05-24] MEDS: SACUBITRIL/VALSARTAN 49 MG/51 MG TABLET PO SCH ×3 (11:21→21:47)
[2018-05-24] MEDS: METOPROLOL SUCCINATE 25 MG TAB.SR.24H PO SCH (11:23)
[2018-05-24] MEDS: GABAPENTIN 300 MG CAPSULE PO SCH ×4 (11:24→21:48)
[2018-05-24] MEDS: FUROSEMIDE 40 MG TABLET PO SCH (11:25)
[2018-05-24] MEDS: DIVALPROEX SODIUM 250 MG TAB.SR.24H PO SCH (11:25)
[2018-05-24 13:50] LABS: ABSOLUTE BASOPHILS # (AUTO) 0.1 10^3/uL (0.0-0.2); ABSOLUTE EOSINOPHILS # (AUTO) 0.2 10^3/uL (0.0-0.6); ABSOLUTE LYMPHOCYTES (AUTO) 1.5 10^3/uL (0.5-4.7); ABSOLUTE MONOCYTES (AUTO) 0.8 10^3/uL (0.1-1.4); BASOPHILS % (AUTO) 1.1 % (0-2); EOSINOPHILS % (AUTO) 2.8 % (0-6); HEMATOCRIT 35.7 % (37.9-51.0); HEMOGLOBIN 12.1 g/dL (13.5-17.0); LYMPHOCYTES % (AUTO) 23.3 % (13-45); MEAN CORPUSCULAR HEMOGLOBIN 30.5 pg (27.0-33.4); MEAN CORPUSCULAR HGB CONC 33.9 g/dL (32.0-36.0); MEAN CORPUSCULAR VOLUME 90 fl (80-97); MONOCYTES % (AUTO) 11.8 % (3-13); PLATELET COUNT 157 10^3/uL (150-450); RED BLOOD COUNT 3.97 10^6/uL (4.35-5.55); RED CELL DISTRIBUTION WIDTH 13.8 % (11.5-14.0); TOTAL CELLS COUNTED % (AUTO) 100 %; WHITE BLOOD COUNT 6.5 10^3/uL (4.0-10.5)
[2018-05-24 14:08] LABS: ALANINE AMINOTRANSFERASE 28 U/L (21-72); ALBUMIN 3.2 g/dL (3.5-5.0); ALKALINE PHOSPHATASE 79 U/L (38-126); ANION GAP 8 (5-19); ASPARTATE AMINO TRANSFERASE 23 U/L (17-59); BILIRUBIN,DIRECT 0.3 mg/dL (0.0-0.4); BILIRUBIN,TOTAL 0.4 mg/dL (0.2-1.3); BLOOD UREA NITROGEN 13 mg/dL (7-20); CALCIUM 9.3 mg/dL (8.4-10.2); CARBON DIOXIDE 28 mmol/L (22-30); CHLORIDE 106 mmol/L (98-107); GLUCOSE 56 mg/dL (75-110); PHOSPHORUS 3.2 mg/dL (2.5-4.5); POTASSIUM 4.5 mmol/L (3.6-5.0); SODIUM 141.9 mmol/L (137-145); TOTAL PROTEIN 6.3 g/dL (6.3-8.2)
[2018-05-24] MEDS ORDERED: METOCLOPRAMIDE HCL INJ/PF 10 MG/2 ML SDV ONE (14:43)
[2018-05-24] MEDS ORDERED: FAMOTIDINE INJ/PF 20 MG/2 ML SDV IV ONE (14:43)
[2018-05-24] MEDS ORDERED: ONDANSETRON HCL INJ/PF 4 MG/2 ML SDV ONE (14:44)
[2018-05-24] MEDS ORDERED: BUPIVACAINE HCL 0.5 % INJ/PF 30 ML SDV ONE (15:04)
[2018-05-24] MEDS ORDERED: FENTANYL CITRATE INJ/PF 100 MCG/2 ML AMPUL ONE (15:04)
[2018-05-24] MEDS ORDERED: MEPERIDINE HCL/PF INJ 25 MG/1 ML DISP.SYRIN IV PRN (15:04)
[2018-05-24] MEDS ORDERED: PROMETHAZINE HCL INJ 25 MG/1 ML VIAL IV PRN (15:04)
[2018-05-24] MEDS ORDERED: MORPHINE SULFATE 10 MG/ML INJ IV PRN (15:04)
[2018-05-24] MEDS ORDERED: DIPHENHYDRAMINE HCL 50 MG/ML VIAL IV PRN (15:04)
[2018-05-24] MEDS ORDERED: FENTANYL CITRATE INJ/PF 100 MCG/2 ML AMPUL IV PRN ×3 (15:04)
[2018-05-24] MEDS ORDERED: LIDOCAINE 1% INJ-PF (10 MG/ML) 30 ML SDV ONE (15:04)
[2018-05-24] MEDS ORDERED: MIDAZOLAM 2 MG/2 ML INJ ONE (15:05)
[2018-05-24] MEDS ORDERED: PROPOFOL INJ 200 MG/20 ML VIAL IV ONE (15:05)
[2018-05-24] MEDS ORDERED: FUROSEMIDE INJ/PF 40 MG/4 ML SDV ONE (16:49)
--- NOTE | 2018-05-24 16:54 | Operative Report ---
Nonrecallable Operative Report DATE OF SURGERY: 05/24/18 PREOPERATIVE DIAGNOSIS: ulcerated left great toe bunion. osteomyelitis of distal head of first left metatarsal bone POSTOPERATIVE DIAGNOSIS: same OPERATION: left great toe amputation. amputation of distal half of left 1st metatarsal bone SURGEON: LAURA HAN ANESTHESIA: Moderate Sedation - plus 20 mL 1% lidocaine without epi TISSUE REMOVED OR ALTERED: left great toe and distal half pf left 1st metatarsal bone COMPLICATIONS: none ESTIMATED BLOOD LOSS: none INTRAOPERATIVE FINDINGS: as above. turniquet time 47 minutes PROCEDURE: see dictation
[2018-05-24] MEDS ORDERED: ALBUTEROL SULFATE HFA (90 MCG/PUFF) 200 PUFF/8.5 GM MDI IH PRN (16:55)
[2018-05-24] MEDS ORDERED: NORMAL SALINE 1000 ML 1,000 ML IV PRN (17:00)
[2018-05-24] MEDS: MORPHINE SULFATE 10 MG/ML INJ IV PRN (17:52)
[2018-05-24] MEDS: CYANOCOBALAMIN (VITAMIN B-12) 1,000 MCG TABLET PO SCH (17:53)
--- NOTE | 2018-05-24 19:26 | PDOC PROGRESS REPORT ---
Subjective Progress Note for:: 05/24/18 Subjective:: Acute events overnight. Status post left great toe amputation. Denies any fever chills nausea vomiting chest pain shortness of breath constipation diarrhea or any urinary symptoms. Reason For Visit: DIABETIC FOOT ULCER Physical Exam Vital Signs: Temp Pulse Resp BP Pulse Ox 97.7 F 56 L 16 166/85 H 99 05/24/18 18:26 05/24/18 18:26 05/24/18 18:26 05/24/18 18:26 05/24/18 18:26 Intake & Output 05/23/18 05/24/18 05/25/18 06:59 06:59 06:59 Intake Total 75 200 Balance 75 200 Weight 71.5 kg General appearance: PRESENT: no acute distress, well-developed, well-nourished Head exam: PRESENT: atraumatic, normocephalic Eye exam: PRESENT: conjunctiva pink, EOMI, PERRLA. ABSENT: scleral icterus Ear exam: PRESENT: normal external ear exam Mouth exam: PRESENT: moist, tongue midline Neck exam: ABSENT: carotid bruit, JVD, lymphadenopathy, thyromegaly Respiratory exam: PRESENT: clear to auscultation deandre. ABSENT: rales, rhonchi, wheezes Cardiovascular exam: PRESENT: RRR. ABSENT: diastolic murmur, rubs, systolic murmur Pulses: PRESENT: normal dorsalis pedis pul Vascular exam: PRESENT: normal capillary refill GI/Abdominal exam: PRESENT: normal bowel sounds, soft. ABSENT: distended, guarding, mass, organolmegaly, rebound, tenderness Rectal exam: PRESENT: deferred Extremities exam: PRESENT: full ROM. ABSENT: calf tenderness, clubbing, pedal edema Musculoskeletal exam: PRESENT: other - Status post left great toe amputation. Neurological exam: PRESENT: alert, awake, oriented to person, oriented to place , oriented to time, oriented to situation, CN II-XII grossly intact. ABSENT: motor sensory deficit Psychiatric exam: PRESENT: appropriate affect, normal mood. ABSENT: homicidal ideation, suicidal ideation Skin exam: PRESENT: dry, intact, warm. ABSENT: cyanosis, rash Results Laboratory Results: 05/24/18 13:29 05/24/18 13:29 05/24/18 05/24/18 13:29 13:29 WBC 6.5 RBC 3.97 L Hgb 12.1 L Hct 35.7 L MCV 90 MCH 30.5 MCHC 33.9 RDW 13.8 Plt Count 157 Seg Neutrophils % 61.0 Lymphocytes % 23.3 Monocytes % 11.8 Eosinophils % 2.8 Basophils % 1.1 Absolute Neutrophils 4.0 Absolute Lymphocytes 1.5 Absolute Monocytes 0.8 Absolute Eosinophils 0.2 Absolute Basophils 0.1 Sodium 141.9 Potassium 4.5 Chloride 106 Carbon Dioxide 28 Anion Gap 8 BUN 13 Creatinine 0.90 Est GFR ( Amer) > 60 Est GFR (Non-Af Amer) > 60 Glucose 56 L Calcium 9.3 Phosphorus 3.2 Magnesium 1.9 Total Bilirubin 0.4 AST 23 ALT 28 Alkaline Phosphatase 79 Total Protein 6.3 Albumin 3.2 L 05/24/18 15:50 Toe - Diabetic Ulcer Gram Stain - Final Impressions: Foot X-Ray 05/23/18 13:24 IMPRESSION: No significant interval change from the previous study. No plain film evidence for bony involvement by osteomyelitis. Other findings as noted above Lower Extremity MRI 05/24/18 00:00 IMPRESSION: 1. Soft tissue ulcer along the great toe MTP joint. There is underlying edema in the metatarsal head consistent with osteomyelitis. As above , this study is significantly limited (compromised by motion). Assessment & Plan - Diagnosis (1) Diabetic foot ulcer Qualifiers: Diabetic foot ulcer location: toe Diabetes mellitus type: type 2 Laterality: left Non-pressure ulcer stage: unspecified non-pressure ulcer stage Qualified Code(s): E11.621 - Type 2 diabetes mellitus with foot ulcer; L97.529 - Non-pressure chronic ulcer of other part of left foot with unspecified severity; L97.529 - Non-pressure chronic ulcer of other part of left foot with unspecified severity; L97.529 - Non-pressure chronic ulcer of other part of left foot with unspecified severity; L97.529 - Non-pressure chronic ulcer of other part of left foot with unspecified severity Is this a current diagnosis for this admission?: Yes Plan: Emperic broad spectrum abx. f/u wound and blood culture. Continue wound care. Status post left great toe amputation. Please refer to surgical note. ID consult for recommendation of antibiotics. (2) History of seizure Is this a current diagnosis for this admission?: No Plan: Restart home meds, seizure precautions (3) Diabetes Qualifiers: Diabetes mellitus type: type 2 Diabetes mellitus complication detail: with other circulatory complications Is this a current diagnosis for this admission?: Yes Plan: Restart Lantus and sliding scale. Adjust dosage as needed. (4) Depression Is this a current diagnosis for this admission?: No Plan: No suicidal ideation or self harm. Restart SSRI (5) Hypertension Is this a current diagnosis for this admission?: Yes Plan: Euvolumic. Restart homed meds. Monitor vitals (6) Tobacco abuse Is this a current diagnosis for this admission?: Yes Plan: Pt encouraged to quit smoking (7) Dyslipidemia Is this a current diagnosis for this admission?: Yes Plan: Statins. Encouraged life modification (8) Diabetic neuropathy Is this a current diagnosis for this admission?: Yes Plan: Continue Gabapentin.
[2018-05-24] MEDS: ATORVASTATIN CALCIUM 40 MG TABLET PO SCH (21:47)
--- NOTE | 2018-05-24 22:31 | OPERATIVE REPORT E ---
Operative Report NAME: SAADIA MARK : 1950 AGE: 67Y DATE OF SURGERY: 05/24/2018 ROOM: [facility] PREOPERATIVE DIAGNOSIS: 1. ULCERATED LEFT GREAT TOE BUNION. 2. OSTEOMYELITIS HEAD OF THE LEFT FIRST METATARSAL BONE. POSTOPERATIVE DIAGNOSIS: 1. ULCERATED LEFT GREAT TOE BUNION. 2. OSTEOMYELITIS HEAD OF THE LEFT FIRST METATARSAL BONE. PROCEDURE: 1. Left great toe amputation. 2. Partial amputation of left first metatarsal distal half. SURGEON: LAURA HAN M.D. PRODUCTION MATERIAL COORDINATOR: None. ESTIMATED BLOOD LOSS: None. COMPLICATIONS: None. ANESTHESIA: IV sedation plus 20 mL of 1% lidocaine without epinephrine. TOTAL TIME: 47 minutes. DRAINS: One 1/4 inch [place] drain. SUTURES: None. INDICATION AND FINDINGS: This is a 67-year-old male with type 2 diabetes and an ulcerated left foot great toe bunion with deformity of the great toe, exposure of the first metatarsophalangeal joint, as well as osteomyelitis of the distal head of the left first metatarsal bone identified on MRI today. DESCRIPTION OF PROCEDURE: It was done in the operating room. The patient was placed in a supine position. IV sedation brought on by anesthesiology. A tourniquet was placed at the level of the left calf. Following the the foot and distal leg were prepped and draped in the usual fashion. An Esmarch rubber band was utilized to exsanguinate the left foot and distal leg. The tourniquet was inflated to 150 mm above the systolic blood pressure. Following this, 2 curvilinear incisions were done around the great toe base to include fully the large ulcerated area of the bunion of the first metatarsophalangeal joint. With Bovie and sharp dissection the soft tissue was completely divided down to bone. The head of the first metatarsal bone was exposed. With Bovie and then with periosteal elevator, the distal half of the first metatarsal bone was fully exposed, divided with an electric saw, and removed from the surgical field. A portion of the distal head of the first metatarsal bone was divided with a saw and sent to microbiology for culture. The rest of the specimen was sent to pathology. The soft tissue was irrigated with normal saline. The stump of the first metatarsal bone was filed and bone wax was applied to the bone stump. A 1/4 inch [place] drain was then placed in the surgical field and secured to the skin with 2 nylon sutures. The wound edge soft tissue was then approximated with interrupted deep simple 2-0 Vicryl sutures. The skin edges were then approximated with interrupted vertical mattress 2-0 nylon sutures; 4 x 4, ABDs, and Kerlix gauze were applied. A plantar splint was then applied from the distal leg down to the entire foot. A Kerlix roll followed by an Jean Paul bandage was then applied to keep the splint in place. The patient tolerated the procedure well and transferred to the recovery room in satisfactory condition. DICTATING PHYSICIAN: LAURA HAN M.D. [id number] PHY#: [id number] ID: [id number] JOB#: [id number] ACCT: [id number] cc:LAURA HAN M.D. > MTDD
[2018-05-25] MEDS: MORPHINE SULFATE 10 MG/ML INJ IV PRN ×3 (03:43→17:33)
[2018-05-25] MEDS: PIPERACILLIN SODIUM/TAZOBACTAM 3.375 GM in NORMAL SALINE 100 ML IV SCH ×2 (03:47→09:54)
[2018-05-25 05:33] LABS: HEMOGLOBIN 11.4 g/dL (13.5-17.0); MEAN CORPUSCULAR HEMOGLOBIN 30.4 pg (27.0-33.4); MEAN CORPUSCULAR HGB CONC 34.5 g/dL (32.0-36.0); MEAN CORPUSCULAR VOLUME 88 fl (80-97); PLATELET COUNT 179 10^3/uL (150-450); RED BLOOD COUNT 3.75 10^6/uL (4.35-5.55); RED CELL DISTRIBUTION WIDTH 13.4 % (11.5-14.0); WHITE BLOOD COUNT 9.1 10^3/uL (4.0-10.5)
[2018-05-25 06:06] LABS: ALANINE AMINOTRANSFERASE 26 U/L (21-72); ALBUMIN 2.9 g/dL (3.5-5.0); ALKALINE PHOSPHATASE 74 U/L (38-126); ANION GAP 10 (5-19); ASPARTATE AMINO TRANSFERASE 22 U/L (17-59); BILIRUBIN,DIRECT 0.3 mg/dL (0.0-0.4); BILIRUBIN,TOTAL 0.4 mg/dL (0.2-1.3); BLOOD UREA NITROGEN 13 mg/dL (7-20); CARBON DIOXIDE 25 mmol/L (22-30); CHLORIDE 103 mmol/L (98-107); GLUCOSE 148 mg/dL (75-110); POTASSIUM 4.5 mmol/L (3.6-5.0); SODIUM 137.5 mmol/L (137-145); TOTAL PROTEIN 5.7 g/dL (6.3-8.2)
[2018-05-25] MEDS: GABAPENTIN 300 MG CAPSULE PO SCH ×3 (06:13→22:31)
[2018-05-25] MEDS ORDERED: ONDANSETRON HCL INJ/PF 4 MG/2 ML SDV IV PRN (08:00)
--- NOTE | 2018-05-25 09:32 | PDOC PROGRESS REPORT ---
Subjective Progress Note for:: 05/25/18 Subjective:: No complaints Reason For Visit: DIABETIC FOOT ULCER Physical Exam Vital Signs: Temp Pulse Resp BP Pulse Ox 99.4 F 89 19 119/78 100 05/24/18 22:25 05/24/18 22:25 05/24/18 22:25 05/24/18 22:25 05/24/18 22:25 Intake & Output 05/24/18 05/25/18 05/26/18 06:59 06:59 06:59 Intake Total 75 1857 Output Total 815 Balance 75 1042 Weight 71.5 kg 68.7 kg General appearance: PRESENT: no acute distress Musculoskeletal exam: PRESENT: other - Operative leg examined; there is evidence of dirt on his Jean Paul wrap. Patient confesses he did walk around on his foot. There is recent dried blood in the 4 x 4 and Kerlix wrap. [place] drain partially exposed, intact Results Laboratory Results: 05/25/18 04:22 05/25/18 04:22 05/24/18 05/24/18 05/25/18 13:29 13:29 04:22 WBC 6.5 9.1 RBC 3.97 L 3.75 L Hgb 12.1 L 11.4 L Hct 35.7 L 33.0 L MCV 90 88 MCH 30.5 30.4 MCHC 33.9 34.5 RDW 13.8 13.4 Plt Count 157 179 Seg Neutrophils % 61.0 Lymphocytes % 23.3 Monocytes % 11.8 Eosinophils % 2.8 Basophils % 1.1 Absolute Neutrophils 4.0 Absolute Lymphocytes 1.5 Absolute Monocytes 0.8 Absolute Eosinophils 0.2 Absolute Basophils 0.1 Sodium 141.9 Potassium 4.5 Chloride 106 Carbon Dioxide 28 Anion Gap 8 BUN 13 Creatinine 0.90 Est GFR ( Amer) > 60 Est GFR (Non-Af Amer) > 60 Glucose 56 L Calcium 9.3 Phosphorus 3.2 Magnesium 1.9 Total Bilirubin 0.4 AST 23 ALT 28 Alkaline Phosphatase 79 Total Protein 6.3 Albumin 3.2 L 05/25/18 04:22 WBC RBC Hgb Hct MCV MCH MCHC RDW Plt Count Seg Neutrophils % Lymphocytes % Monocytes % Eosinophils % Basophils % Absolute Neutrophils Absolute Lymphocytes Absolute Monocytes Absolute Eosinophils Absolute Basophils Sodium 137.5 Potassium 4.5 Chloride 103 Carbon Dioxide 25 Anion Gap 10 BUN 13 Creatinine 0.97 Est GFR ( Amer) > 60 Est GFR (Non-Af Amer) > 60 Glucose 148 H Calcium 9.0 Phosphorus Magnesium Total Bilirubin 0.4 AST 22 ALT 26 Alkaline Phosphatase 74 Total Protein 5.7 L Albumin 2.9 L 05/24/18 15:50 Toe - Diabetic Ulcer Gram Stain - Final Impressions: Foot X-Ray 05/23/18 13:24 IMPRESSION: No significant interval change from the previous study. No plain film evidence for bony involvement by osteomyelitis. Other findings as noted above Lower Extremity MRI 05/24/18 00:00 IMPRESSION: 1. Soft tissue ulcer along the great toe MTP joint. There is underlying edema in the metatarsal head consistent with osteomyelitis. As above , this study is significantly limited (compromised by motion). Assessment & Plan - Diagnosis (1) Diabetic foot ulcer Qualifiers: Diabetic foot ulcer location: toe Diabetes mellitus type: type 2 Laterality: left Non-pressure ulcer stage: unspecified non-pressure ulcer stage Qualified Code(s): E11.621 - Type 2 diabetes mellitus with foot ulcer; L97.529 - Non-pressure chronic ulcer of other part of left foot with unspecified severity; L97.529 - Non-pressure chronic ulcer of other part of left foot with unspecified severity; L97.529 - Non-pressure chronic ulcer of other part of left foot with unspecified severity; L97.529 - Non-pressure chronic ulcer of other part of left foot with unspecified severity Is this a current diagnosis for this admission?: Yes Plan: Impression: 1 day status post left great toe and metatarsal head amputation with no immediate complications; noncompliance may be problematic in this patient. Remains on Zosyn. Bone cultures pending. Recommendations: 1. Will change dressing today due to bloodly Curlex, etc. 2. Patient told to stay in bed; we will get bedside commode to be used with assistance 3. Change dressing tomorrow per Dr. Ramirez
[2018-05-25] MEDS: METOPROLOL SUCCINATE 25 MG TAB.SR.24H PO SCH (09:56)
[2018-05-25] MEDS: DIVALPROEX SODIUM 250 MG TAB.SR.24H PO SCH (09:57)
[2018-05-25] MEDS: CYANOCOBALAMIN (VITAMIN B-12) 1,000 MCG TABLET PO SCH ×2 (09:58→15:10)
[2018-05-25] MEDS: FUROSEMIDE 40 MG TABLET PO SCH (09:58)
[2018-05-25] MEDS: ASPIRIN 81 MG TABLET, CHEWABLE PO SCH (09:58)
[2018-05-25] MEDS ORDERED: (PENDING PHARMACY ID) (Paroxetine Hcl [Paxil] 60 MG) PO SCH (10:00)
[2018-05-25] MEDS ORDERED: PAROXETINE HCL 20 MG TABLET PO SCH (10:00)
[2018-05-25] MEDS ORDERED: ENOXAPARIN SODIUM INJ 40 MG/0.4 ML DISP.SYRIN SUBCUT SCH ×2 (10:00)
[2018-05-25] MEDS ORDERED: VANCOMYCIN HCL 0 MG in DEXTROSE 5%-WATER 250 ML IV NR (11:45)
--- NOTE | 2018-05-25 12:09 | PDOC PROGRESS REPORT ---
Subjective Progress Note for:: 05/25/18 Subjective:: Acute events overnight. Status post left great toe amputation. Denies any fever chills nausea vomiting chest pain shortness of breath constipation diarrhea or any urinary symptoms. Reason For Visit: DIABETIC FOOT ULCER Physical Exam Vital Signs: Temp Pulse Resp BP Pulse Ox 99.6 F 78 16 118/73 100 05/25/18 07:51 05/25/18 07:51 05/25/18 07:51 05/25/18 07:51 05/25/18 07:51 Intake & Output 05/24/18 05/25/18 05/26/18 06:59 06:59 06:59 Intake Total 75 1857 Output Total 815 Balance 75 1042 Weight 71.5 kg 68.7 kg General appearance: PRESENT: no acute distress, well-developed, well-nourished Head exam: PRESENT: atraumatic, normocephalic Eye exam: PRESENT: conjunctiva pink, EOMI, PERRLA. ABSENT: scleral icterus Ear exam: PRESENT: normal external ear exam Mouth exam: PRESENT: moist, tongue midline Neck exam: ABSENT: carotid bruit, JVD, lymphadenopathy, thyromegaly Respiratory exam: PRESENT: clear to auscultation deandre. ABSENT: rales, rhonchi, wheezes Cardiovascular exam: PRESENT: RRR. ABSENT: diastolic murmur, rubs, systolic murmur Pulses: PRESENT: normal dorsalis pedis pul Vascular exam: PRESENT: normal capillary refill GI/Abdominal exam: PRESENT: normal bowel sounds, soft. ABSENT: distended, guarding, mass, organolmegaly, rebound, tenderness Rectal exam: PRESENT: deferred Extremities exam: PRESENT: full ROM, other - Status post left great toe amputation. Patient has a dressing on on palpation there is minimal swelling and tenderness. No active discharge noted.. ABSENT: calf tenderness, clubbing , pedal edema Neurological exam: PRESENT: alert, awake, oriented to person, oriented to place , oriented to time, oriented to situation, CN II-XII grossly intact. ABSENT: motor sensory deficit Psychiatric exam: PRESENT: appropriate affect, normal mood. ABSENT: homicidal ideation, suicidal ideation Skin exam: PRESENT: dry, intact, warm. ABSENT: cyanosis, rash Results Laboratory Results: 05/25/18 04:22 05/25/18 04:22 05/24/18 05/24/18 05/25/18 13:29 13:29 04:22 WBC 6.5 9.1 RBC 3.97 L 3.75 L Hgb 12.1 L 11.4 L Hct 35.7 L 33.0 L MCV 90 88 MCH 30.5 30.4 MCHC 33.9 34.5 RDW 13.8 13.4 Plt Count 157 179 Seg Neutrophils % 61.0 Lymphocytes % 23.3 Monocytes % 11.8 Eosinophils % 2.8 Basophils % 1.1 Absolute Neutrophils 4.0 Absolute Lymphocytes 1.5 Absolute Monocytes 0.8 Absolute Eosinophils 0.2 Absolute Basophils 0.1 Sodium 141.9 Potassium 4.5 Chloride 106 Carbon Dioxide 28 Anion Gap 8 BUN 13 Creatinine 0.90 Est GFR ( Amer) > 60 Est GFR (Non-Af Amer) > 60 Glucose 56 L Calcium 9.3 Phosphorus 3.2 Magnesium 1.9 Total Bilirubin 0.4 AST 23 ALT 28 Alkaline Phosphatase 79 Total Protein 6.3 Albumin 3.2 L 05/25/18 04:22 WBC RBC Hgb Hct MCV MCH MCHC RDW Plt Count Seg Neutrophils % Lymphocytes % Monocytes % Eosinophils % Basophils % Absolute Neutrophils Absolute Lymphocytes Absolute Monocytes Absolute Eosinophils Absolute Basophils Sodium 137.5 Potassium 4.5 Chloride 103 Carbon Dioxide 25 Anion Gap 10 BUN 13 Creatinine 0.97 Est GFR ( Amer) > 60 Est GFR (Non-Af Amer) > 60 Glucose 148 H Calcium 9.0 Phosphorus Magnesium Total Bilirubin 0.4 AST 22 ALT 26 Alkaline Phosphatase 74 Total Protein 5.7 L Albumin 2.9 L 05/24/18 15:50 Toe - Diabetic Ulcer Gram Stain - Final Impressions: Foot X-Ray 05/23/18 13:24 IMPRESSION: No significant interval change from the previous study. No plain film evidence for bony involvement by osteomyelitis. Other findings as noted above Lower Extremity MRI 05/24/18 00:00 IMPRESSION: 1. Soft tissue ulcer along the great toe MTP joint. There is underlying edema in the metatarsal head consistent with osteomyelitis. As above , this study is significantly limited (compromised by motion). Assessment & Plan - Diagnosis (1) Osteomyelitis Qualifiers: Osteomyelitis location: foot Laterality: left Is this a current diagnosis for this admission?: Yes Plan: Left great toe osteomyelitis. Status post resection. Wound culture positive for gram-positive cocci. Pending sensitivity. Continue IV Vanco. ID consulted. Pending further recommendation. (2) Diabetic foot ulcer Qualifiers: Diabetic foot ulcer location: toe Diabetes mellitus type: type 2 Laterality: left Non-pressure ulcer stage: unspecified non-pressure ulcer stage Qualified Code(s): E11.621 - Type 2 diabetes mellitus with foot ulcer; L97.529 - Non-pressure chronic ulcer of other part of left foot with unspecified severity; L97.529 - Non-pressure chronic ulcer of other part of left foot with unspecified severity; L97.529 - Non-pressure chronic ulcer of other part of left foot with unspecified severity; L97.529 - Non-pressure chronic ulcer of other part of left foot with unspecified severity Is this a current diagnosis for this admission?: Yes Plan: Status post left great toe amputation. Please refer to surgical note. ID consult for recommendation of antibiotics. Continue vancomycin. Follow-up blood and wound cultures. Continue wound care. (3) History of seizure Is this a current diagnosis for this admission?: No Plan: Restart home meds, seizure precautions (4) Diabetes Qualifiers: Diabetes mellitus type: type 2 Diabetes mellitus complication detail: with other circulatory complications Is this a current diagnosis for this admission?: Yes Plan: Restart Lantus and sliding scale. Adjust dosage as needed. Diabetic diet (5) Depression Is this a current diagnosis for this admission?: No Plan: No suicidal ideation or self harm. Restart SSRI (6) Hypertension Is this a current diagnosis for this admission?: Yes Plan: Euvolumic. Restart homed meds. Monitor vitals (7) Tobacco abuse Is this a current diagnosis for this admission?: Yes Plan: Pt encouraged to quit smoking (8) Dyslipidemia Is this a current diagnosis for this admission?: Yes Plan: Statins. Encouraged life style modification (9) Diabetic neuropathy Is this a current diagnosis for this admission?: Yes Plan: Continue Gabapentin. (10) Hyperkalemia Is this a current diagnosis for this admission?: Yes Plan: Unspecified cause. Resolved. Monitor electrolytes. CMP tomorrow
[2018-05-25] MEDS ORDERED: INSULIN GLARGINE,HUM.REC.ANLOG 300 UNIT/3 ML INSULN.PEN SUBCUT SCH (13:00)
[2018-05-25] MEDS ORDERED: VANCOMYCIN HCL 1,000 MG in DEXTROSE 5%-WATER 250 ML IV ONE (14:00)
[2018-05-25] MEDS: SACUBITRIL/VALSARTAN 49 MG/51 MG TABLET PO SCH ×2 (15:09→22:32)
[2018-05-25] MEDS ORDERED: METFORMIN HCL 500 MG TABLET PO SCH (16:00)
[2018-05-25] MEDS ORDERED: OXYCODONE-ACETAMINOPHEN 5-325 MG TABLET PO PRN (19:06)
[2018-05-25] MEDS ORDERED: ACETAMINOPHEN 325 MG TABLET PO PRN (19:06)
[2018-05-25] MEDS ORDERED: OXYCODONE-ACETAMINOPHEN 5-325 MG TABLET ONE (19:14)
[2018-05-25] MEDS ORDERED: VANCOMYCIN HCL 1,000 MG in DEXTROSE 5%-WATER 250 ML IV SCH (22:00)
[2018-05-25] MEDS: ATORVASTATIN CALCIUM 40 MG TABLET PO SCH (22:33)
[2018-05-26 05:12] LABS: ABSOLUTE BASOPHILS # (AUTO) 0.1 10^3/uL (0.0-0.2); ABSOLUTE EOSINOPHILS # (AUTO) 0.2 10^3/uL (0.0-0.6); ABSOLUTE MONOCYTES (AUTO) 1.1 10^3/uL (0.1-1.4); BASOPHILS % (AUTO) 0.8 % (0-2); EOSINOPHILS % (AUTO) 2.7 % (0-6); HEMATOCRIT 29.9 % (37.9-51.0); HEMOGLOBIN 10.3 g/dL (13.5-17.0); LYMPHOCYTES % (AUTO) 24.2 % (13-45); MEAN CORPUSCULAR HEMOGLOBIN 30.5 pg (27.0-33.4); MEAN CORPUSCULAR HGB CONC 34.4 g/dL (32.0-36.0); MEAN CORPUSCULAR VOLUME 89 fl (80-97); MONOCYTES % (AUTO) 13.2 % (3-13); PLATELET COUNT 159 10^3/uL (150-450); RED BLOOD COUNT 3.37 10^6/uL (4.35-5.55); RED CELL DISTRIBUTION WIDTH 13.3 % (11.5-14.0); SEGMENTED NEUTROPHILS % (AUTO) 59.1 % (42-78); TOTAL CELLS COUNTED % (AUTO) 100 %; WHITE BLOOD COUNT 8.4 10^3/uL (4.0-10.5)
[2018-05-26 05:40] LABS: ANION GAP 11 (5-19); BLOOD UREA NITROGEN 18 mg/dL (7-20); CALCIUM 8.7 mg/dL (8.4-10.2); CARBON DIOXIDE 23 mmol/L (22-30); CHLORIDE 102 mmol/L (98-107); GLUCOSE 106 mg/dL (75-110); POTASSIUM 3.8 mmol/L (3.6-5.0); SODIUM 135.6 mmol/L (137-145)
[2018-05-26] MEDS: GABAPENTIN 300 MG CAPSULE PO SCH (06:17)
[2018-05-26 08:21] VITALS: BP 112/64
[2018-05-26] MEDS: INSULIN GLARGINE,HUM.REC.ANLOG 300 UNIT/3 ML INSULN.PEN SUBCUT SCH ×2 (10:22→10:25)
[2018-05-26] MEDS: CYANOCOBALAMIN (VITAMIN B-12) 1,000 MCG TABLET PO SCH (10:24)
--- NOTE | 2018-05-26 20:57 | Progress Note ---
Provider Note Provider Note: Patient was not seen by this provider. Apparently, per RN patient was being rude and insisted that he leave immediately because he hates this place. RN asked patient to wait for provider to talk to him but patient refused to.
== END 2018-05-26 10:58 | disposition left against medical advice (07) | DRG 617 ==
LOC: ER 12:40 → EH 15:50 → 5 21:14
PROVIDERS: ADMIT Internal Medicine; ATTEND Internal Medicine
PROC: 0Y6Q0Z0 Detachment at Left 1st Toe, Complete, Open Approach (ICD-10-PCS; principal; 2018-05-24 14:30)
DX: E11.621 Type 2 diabetes mellitus with foot ulcer (principal); M86.9 Osteomyelitis, unspecified; L03.115 Cellulitis of right lower limb; E11.40 Type 2 diabetes mellitus with diabetic neuropathy, unspecified; E11.65 Type 2 diabetes mellitus with hyperglycemia; E87.5 Hyperkalemia; L97.529 Non-pressure chronic ulcer of other part of left foot with unspecified severity; E78.00 Pure hypercholesterolemia, unspecified; I10 Essential (primary) hypertension; G40.909 Epilepsy, unspecified, not intractable, without status epilepticus; K21.9 Gastro-esophageal reflux disease without esophagitis; F32.9 Major depressive disorder, single episode, unspecified; F17.210 Nicotine dependence, cigarettes, uncomplicated; I25.2 Old myocardial infarction; Z87.820 Personal history of traumatic brain injury; Z79.84 Long term (current) use of oral hypoglycemic drugs; Z79.4 Long term (current) use of insulin; Z79.52 Long term (current) use of systemic steroids; Z79.899 Other long term (current) drug therapy
CPT/HCPCS: 01480; 36415; 80048; 80053; 82962; 83735; 84100; 85025; 85027; 85652; 86140; 87040; 87070; 87077; 87186; 87205; 88305; 88311; 96365; 96375; 99284; A9576; J1170; J1650; J1815; J1940; J2250; J2270; J2405; J2543; J2704; J2765; J3010; J3370; J3490; J7030; J7060; S0028

== ENCOUNTER 2018-07-14 06:39 | Emergency (ER) | payer OTHER, MEDICARE ==
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
[2018-07-14 07:31] LABS: ABSOLUTE LYMPHOCYTES (AUTO) 0.9 10^3/uL (0.5-4.7); ABSOLUTE MONOCYTES (AUTO) 0.5 10^3/uL (0.1-1.4); ABSOLUTE NEUT (AUTO) 10.9 10^3/uL (1.7-8.2); BASOPHILS % (AUTO) 0.4 % (0-2); EOSINOPHILS % (AUTO) 0.2 % (0-6); HEMATOCRIT 30.7 % (37.9-51.0); HEMOGLOBIN 10.4 g/dL (13.5-17.0); LYMPHOCYTES % (AUTO) 7.3 % (13-45); MEAN CORPUSCULAR HEMOGLOBIN 30.3 pg (27.0-33.4); MEAN CORPUSCULAR HGB CONC 34.1 g/dL (32.0-36.0); MEAN CORPUSCULAR VOLUME 89 fl (80-97); MONOCYTES % (AUTO) 4.2 % (3-13); PLATELET COUNT 217 10^3/uL (150-450); RED BLOOD COUNT 3.45 10^6/uL (4.35-5.55); RED CELL DISTRIBUTION WIDTH 14.8 % (11.5-14.0); SEGMENTED NEUTROPHILS % (AUTO) 87.9 % (42-78); TOTAL CELLS COUNTED % (AUTO) 100 %; VENOUS BLOOD BASE EXCESS 0.8 mmol/L; VENOUS BLOOD HCO3 24.4 mmol/L (20-32); VENOUS BLOOD PCO2 35.3 mmHg (35-63); VENOUS BLOOD PH 7.46 (7.30-7.42); WHITE BLOOD COUNT 12.4 10^3/uL (4.0-10.5)
[2018-07-14 07:46] LABS: ALANINE AMINOTRANSFERASE 48 U/L (21-72); ALBUMIN 3.4 g/dL (3.5-5.0); ALKALINE PHOSPHATASE 106 U/L (38-126); ANION GAP 9 (5-19); ASPARTATE AMINO TRANSFERASE 85 U/L (17-59); BILIRUBIN,DIRECT 0.3 mg/dL (0.0-0.4); BILIRUBIN,TOTAL 0.5 mg/dL (0.2-1.3); BLOOD UREA NITROGEN 11 mg/dL (7-20); CALCIUM 9.4 mg/dL (8.4-10.2); CARBON DIOXIDE 24 mmol/L (22-30); CHLORIDE 103 mmol/L (98-107); GLUCOSE 142 mg/dL (75-110); POTASSIUM 4.2 mmol/L (3.6-5.0); TOTAL PROTEIN 6.5 g/dL (6.3-8.2)
--- NOTE | 2018-07-14 07:52 | RADIOLOGY REPORT (SQ) ---
EXAM DESCRIPTION: X-ray single view chest. CLINICAL HISTORY: 67 years Male, hypoxia COMPARISON: Prior chest x-ray performed on 06/10/2018. TECHNIQUE: Single portable view of the chest performed on 07/14/2018 at 7:22 AM FINDINGS: The lungs are well-expanded. There is new airspace disease throughout the medial right lower lobe consistent with a pneumonic infiltrate. There is a stable left lower lobe granuloma. There is no evidence of a pneumothorax. The cardiac silhouette is normal in size and configuration. The mediastinal contours are normal. No acute osseous abnormality is identified. No focal soft tissue abnormalities are seen. Lines and tubes: None. IMPRESSION: New airspace process in the right lower lobe concerning for a pneumonic infiltrate. The remainder of the lungs are grossly clear and stable since the prior study. There is a stable left lower lobe granuloma.
[2018-07-14 07:57] LABS: PROTHROMBIN TIME 13.7 SEC (11.4-15.4)
[2018-07-14] MEDS ORDERED: RINGERS SOLUTION,LACTATED 1,000 ML IV ONE (08:00)
--- NOTE | 2018-07-14 08:01 | EKG REPORT ---
SEVERITY:- ABNORMAL ECG - SINUS TACHYCARDIA INFERIOR INFARCT, AGE INDETERMINATE CONSIDER POSTERIOR INFARCT REPOL ABNRM SUGGESTS ISCHEMIA, DIFFUSE LEADS : Confirmed by: Ramesh Benoit MD 14-Jul-2018 08:00:26
[2018-07-14 08:02] LABS: TROPONIN I 2.11 ng/mL
[2018-07-14] MEDS ORDERED: ASPIRIN 81 MG TABLET, CHEWABLE PO ONE (08:09)
[2018-07-14] MEDS ORDERED: METOPROLOL TARTRATE PF/INJ 5 MG/5 ML SDV IV ONE (08:10)
--- NOTE | 2018-07-14 09:08 | RADIOLOGY REPORT (SQ) ---
EXAM DESCRIPTION: CTA CHEST COMPLETED DATE/TIME: 07/14/2018 8:52 am REASON FOR STUDY: TACHYCARDIA, HYPOXIA COMPARISON: 04/12/2018 TECHNIQUE: CT scan of the chest performed using helical scanning technique with dynamic intravenous contrast injection. Images reviewed with lung, soft tissue and bone windows. Reconstructed coronal and sagittal MPR images reviewed. Additional 3 dimensional post-processing performed to develop Maximal Intensity Projection images ([place] P). All images stored on PACS. All CT scanners at this facility use dose modulation, iterative reconstruction, and/or weight based d osing when appropriate to reduce radiation dose to as low as reasonably achievable (ALARA). [facility]: Dose Right [facility]: CareDose [facility]: Dose Right [facility]: Teradose 4D [facility]: [employer] CONTRAST TYPE AND DOSE: contrast/concentration: Isovue 350.00 mg/ml; Total Contrast Delivered: 66.0 ml; Total Saline Delivered: 90.0 ml Contrast bolus optimized for the pulmonary arteries. Not diagnostic for the aorta. RENAL FUNCTION: Creatinine 0.94 RADIATION DOSE: CT Rad equipment meets quality standard of care and radiation dose reduction techniq ues were employed. CTDIvol: 14.4 - 19.8 mGy. DLP: 570 mGy-cm. . LIMITATIONS: None. FINDINGS: LUNGS AND PLEURA: Diffuse interstitial and alveolar changes are identified most consistent with interstitial and alveolar edema. Moderate size bilateral pleural effusions are identified. Ag ain the appearance is most consistent with congestive failure. AORTA AND GREAT VESSELS: No aneurysm. Contrast bolus not optimized for the aorta. HEART: No pericardial effusion. No significant coronary artery calcifications. PULMONARY ARTERIES: No emboli visualized in the main pulmonary arteries or the segmental branches. HILAR AND MEDIASTINAL STRUCTURES: No identified masses or abnormal nodes. HARDWARE: None in the chest. UPPER ABDOMEN: The previously described pancreatic calcifications consistent with chronic pancreatiti s are again identified. Small bilateral nonobstructing renal calculi are identified. THYROID AND OTHER SOFT TISSUES: No masses. No adenopathy. BONES: No acute or significant finding. 3D MIPS: Confirm above findings. OTHER: No other significant finding. IMPRESSION: No evidence for pulmonary embolic disease. Congestive failure pattern as noted above. Other findings as noted above. COMMENT: Quality ID # [id number]: Final reports with documentation of one or more dose reduction techniques (e.g., Automated exposure control, adjustment of the mA and/or kV according to patient size, use of iterative reconstruction technique) TECHNICAL DOCUMENTATION: JOB ID: [id number] [employer]- All Rights Reserved Reading location - IP/workstation name: [email or web address]
[2018-07-14] MEDS ORDERED: FUROSEMIDE INJ/PF 40 MG/4 ML SDV IV ONE (09:18)
[2018-07-14] MEDS ORDERED: NITROGLYCERIN/D5W 50 MG/250 ML RTUINJ IV PRN (09:19)
[2018-07-14] MEDS ORDERED: NITROGLYCERIN 0.4 MG/TAB 25 TAB/BOTTLE SL STA (09:22)
[2018-07-14 12:09] LABS: APPEARANCE,URINE CLEAR; BILIRUBIN,URINE NEGATIVE (NEGATIVE); COLOR,URINE YELLOW; GLUCOSE, URINE NEGATIVE (NEGATIVE); KETONES,URINE NEGATIVE (NEGATIVE); LEUKOCYTE ESTERASE,URINE NEGATIVE (NEGATIVE); NITRITE,URINE NEGATIVE (NEGATIVE); PROTEIN,URINE >=500 mg/dL (NEGATIVE); UROBILINOGEN,URINE NEGATIVE mg/dL (<2.0)
[2018-07-14 12:13] VITALS: BP 124/108
== END 2018-07-14 12:31 | disposition short-term general hospital (02) ==
LOC: ER 06:39
DX: J96.01 Acute respiratory failure with hypoxia (principal); I11.0 Hypertensive heart disease with heart failure; I50.1 Left ventricular failure, unspecified; I21.4 Non-ST elevation (NSTEMI) myocardial infarction; D72.829 Elevated white blood cell count, unspecified; R00.0 Tachycardia, unspecified; R07.9 Chest pain, unspecified; I25.10 Atherosclerotic heart disease of native coronary artery without angina pectoris; E11.9 Type 2 diabetes mellitus without complications; F17.210 Nicotine dependence, cigarettes, uncomplicated; L92.8 Other granulomatous disorders of the skin and subcutaneous tissue; Z89.411 Acquired absence of right great toe
CPT/HCPCS: 93005; 99291; 96375; 96365; 96366; 36415; 87040; 87086; 85025; 85610; 80053; 81001; 84484; 82803; 83605; 83880; 71045; 71275; 93010; 94660; J1940; J3490 ×2

== ENCOUNTER 2019-03-10 13:57 | Inpatient (IN) | payer OTHER, MEDICARE ==
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
--- NOTE | 2019-03-10 14:54 | RADIOLOGY REPORT (SQ) ---
EXAM DESCRIPTION: CHEST 2 VIEWS COMPLETED DATE/TIME: 03/10/2019 2:43 pm REASON FOR STUDY: short of breath pedal edema COMPARISON: 10/21/2015 EXAM PARAMETERS: NUMBER OF VIEWS: two views TECHNIQUE: Digital Frontal and Lateral radiographic views of the chest acquired. RADIATION DOSE: NA LIMITATIONS: none FINDINGS: LUNGS AND PLEURA: Small bilateral pleural effusions. MEDIASTINUM AND HILAR STRUCTURES: No masses or contour abnormalities. HEART AND VASCULAR STRUCTURES: Cardiomegaly status post median sternotomy. BONES: There are minimally displaced fractures of the posterolateral left 6th and 7th ribs, which are new from prior examination although age indeterminate. HARDWARE: None in the chest. OTHER: No other significant finding. IMPRESSION: 1. Cardiomegaly and small bilateral pleural effusions. 2. There are minimally displaced fractures of the posterolateral left 6th and 7th ribs, which are new from prior examination although age indeterminate. Correlate for recent trauma and point tenderness . TECHNICAL DOCUMENTATION: JOB ID: [id number] [employer]- All Rights Reserved Reading location - IP/workstation name: [email or web address]
--- NOTE | 2019-03-10 15:50 | EKG REPORT ---
SEVERITY:- ABNORMAL ECG - SINUS RHYTHM ABNRM R PROG, CONSIDER ASMI OR LEAD PLACEMENT CONSIDER OLD INFERIOR ID. : Confirmed by: Ramesh Benoit MD 10-Mar-2019 15:49:13
[2019-03-10 16:10] LABS: ABSOLUTE BASOPHILS # (AUTO) 0.1 10^3/uL (0.0-0.2); ABSOLUTE EOSINOPHILS # (AUTO) 0.2 10^3/uL (0.0-0.6); ABSOLUTE LYMPHOCYTES (AUTO) 3.1 10^3/uL (0.5-4.7); ABSOLUTE MONOCYTES (AUTO) 0.9 10^3/uL (0.1-1.4); ABSOLUTE NEUT (AUTO) 5.4 10^3/uL (1.7-8.2); BASOPHILS % (AUTO) 1.1 % (0-2); EOSINOPHILS % (AUTO) 2.2 % (0-6); HEMATOCRIT 34.9 % (37.9-51.0); HEMOGLOBIN 11.6 g/dL (13.5-17.0); LYMPHOCYTES % (AUTO) 32.4 % (13-45); MEAN CORPUSCULAR HGB CONC 33.4 g/dL (32.0-36.0); MEAN CORPUSCULAR VOLUME 90 fl (80-97); PLATELET COUNT 194 10^3/uL (150-450); RED BLOOD COUNT 3.87 10^6/uL (4.35-5.55); RED CELL DISTRIBUTION WIDTH 14.3 % (11.5-14.0); SEGMENTED NEUTROPHILS % (AUTO) 55.3 % (42-78); TOTAL CELLS COUNTED % (AUTO) 100 %; WHITE BLOOD COUNT 9.7 10^3/uL (4.0-10.5)
[2019-03-10] MEDS ORDERED: FUROSEMIDE INJ/PF 40 MG/4 ML SDV IV ONE (16:15)
[2019-03-10] MEDS ORDERED: NITROGLYCERIN 0.4 MG/TAB 25 TAB/BOTTLE SL PRN (16:15)
[2019-03-10] MEDS ORDERED: DEXTROSE 50%-WATER 25 GM/50 ML DISP.SYRIN IV ONE (16:16)
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
[2019-03-10 16:32] LABS: ALANINE AMINOTRANSFERASE 53 U/L (21-72); ALBUMIN 3.6 g/dL (3.5-5.0); ALKALINE PHOSPHATASE 89 U/L (38-126); ANION GAP 8 (5-19); ASPARTATE AMINO TRANSFERASE 59 U/L (17-59); BILIRUBIN,DIRECT 0.3 mg/dL (0.0-0.4); BILIRUBIN,TOTAL 0.4 mg/dL (0.2-1.3); BLOOD UREA NITROGEN 17 mg/dL (7-20); CALCIUM 9.4 mg/dL (8.4-10.2); CARBON DIOXIDE 26 mmol/L (22-30); CHLORIDE 101 mmol/L (98-107); POTASSIUM 4.8 mmol/L (3.6-5.0); SODIUM 135.2 mmol/L (137-145); TOTAL PROTEIN 6.4 g/dL (6.3-8.2)
[2019-03-10 16:41] LABS: CREATINE KINASE MB 4.57 ng/mL (<4.55); LIPASE < 10.0 U/L (23-300)
[2019-03-10 16:42] LABS: GLUCOSE 39 mg/dL (75-110)
[2019-03-10 17:20] LABS: TROPONIN I 0.043 ng/mL
[2019-03-10] MEDS ORDERED: FUROSEMIDE INJ/PF 40 MG/4 ML SDV ONE (17:58)
[2019-03-10] MEDS ORDERED: MORPHINE SULFATE 10 MG/ML INJ ONE (17:58)
[2019-03-10 18:09] LABS: APPEARANCE,URINE CLEAR; BILIRUBIN,URINE NEGATIVE (NEGATIVE); COLOR,URINE YELLOW; GLUCOSE, URINE 50 mg/dL (NEGATIVE); KETONES,URINE NEGATIVE (NEGATIVE); LEUKOCYTE ESTERASE,URINE NEGATIVE (NEGATIVE); NITRITE,URINE NEGATIVE (NEGATIVE); PROTEIN,URINE 100 mg/dL (NEGATIVE); UROBILINOGEN,URINE NEGATIVE mg/dL (<2.0)
--- NOTE | 2019-03-10 18:13 | RADIOLOGY REPORT (SQ) ---
EXAM DESCRIPTION: CTA CHEST COMPLETED DATE/TIME: 03/10/2019 5:57 pm REASON FOR STUDY: sob COMPARISON: CT chest 07/14/2018, 04/12/2018 Two-view chest 03/10/2019 TECHNIQUE: CT scan of the chest performed using helical scanning technique with dynamic intravenous contrast injection. Images reviewed with lung, soft tissue and bone windows. Reconstructed coronal and sagittal MPR images reviewed. Additional 3 dimensional post-processing performed to develop Maximal Intensity Projection images (OR P). All images stored on PACS. All CT scanners at this facility use dose modulation, iterative reconstruction, and/or weight based d osing when appropriate to reduce radiation dose to as low as reasonably achievable (ALARA). [facility]: Dose Right [facility]: CareDose [facility]: Dose Right [facility]: Teradose 4D [facility]: Eyebrid Blaze CONTRAST TYPE AND DOSE: contrast/concentration: Isovue 350.00 mg/ml; Total Contrast Delivered: 76.0 ml; Total Saline Delivered: 80.0 ml Contrast bolus optimized for the pulmonary arteries. Not diagnostic for the aorta. RENAL FUNCTION: Creatinine 1.0 RADIATION DOSE: CT Rad equipment meets quality standard of care and radiation dose reduction techniq ues were employed. CTDIvol: 14.3 - 33.1 mGy. DLP: 586 mGy-cm. . LIMITATIONS: None. FINDINGS: LUNGS AND PLEURA: Moderate bilateral pleural effusions are present. Dependent atelectasis in both lungs is present. No dense consolidation worrisome for pneumonia or fluffy alveolar infiltr ates worrisome for pulmonary edema. No pneumothorax. AORTA AND GREAT VESSELS: No aneurysm. Contrast bolus not optimized for the aorta. HEART: No pericardial effusion. Prior CABG. PULMONARY ARTERIES: No emboli visualized in the main pulmonary arteries or the segmental branches. HILAR AND MEDIASTINAL STRUCTURES: No identified masses or abnormal nodes. HARDWARE: None in the chest. UPPER ABDOMEN: Calcified pancreas from old pancreatitis. Small bilateral intrarenal nonobstructive k idney stones. THYROID AND OTHER SOFT TISSUES: No masses. No adenopathy. BONES: No acute or significant finding. 3D MIPS: Confirm above findings. OTHER: No other significant finding. IMPRESSION: Moderate bilateral pleural effusions with dependent atelectasis. No CTA evidence of acute pulmonary emboli. COMMENT: Quality ID # [id number]: Final reports with documentation of one or more dose reduction techniques (e.g., Automated exposure control, adjustment of the mA and/or kV according to patient size, use of iterative reconstruction technique) TECHNICAL DOCUMENTATION: JOB ID: [id number] [employer]- All Rights Reserved Reading location - IP/workstation name: [email or web address]
[2019-03-10] MEDS ORDERED: ONDANSETRON HCL INJ/PF 4 MG/2 ML SDV IV PRN (18:15)
[2019-03-10] MEDS ORDERED: ACETAMINOPHEN 325 MG TABLET PO PRN (18:15)
[2019-03-10] MEDS ORDERED: DEXTROSE 50%-WATER 25 GM/50 ML DISP.SYRIN IV PRN ×2 (18:23)
[2019-03-10] MEDS ORDERED: NICOTINE 21 MG/24 HR PATCH.TD24 TD ONE ×2 (18:23→20:00)
[2019-03-10] MEDS ORDERED: GLUCAGON,HUMAN RECOMB 1 MG INJ IM PRN (18:23)
[2019-03-10] MEDS ORDERED: DEXTROSE 40% GEL 15 GM TUBE PO PRN ×2 (18:23)
[2019-03-10] MEDS ORDERED: MAGNESIUM CITRATE 296 ML BOTTLE PO ONE ×2 (18:29→20:00)
[2019-03-10] MEDS ORDERED: APIXABAN 2.5 MG TABLET PO SCH (18:30)
[2019-03-10] MEDS ORDERED: HYDRALAZINE HCL INJ/PF 20 MG/1 ML SDV IV PRN (18:45)
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
[2019-03-10 18:52] LABS: ARTERIAL BLOOD BASE EXCESS -0.5 mmol/L; ARTERIAL BLOOD H2CO3 1.17 mmol/L (1.05-1.35); ARTERIAL BLOOD O2 SATURATION 92.5 % (94-98); ARTERIAL BLOOD PCO2 38.9 mmHg (35-45); ARTERIAL BLOOD PH 7.41 (7.35-7.45); ARTERIAL BLOOD PO2 63.4 mmHg (80-100); ARTERIAL BLOOD TOTAL CO2 25.2 mmol/L (23-27)
[2019-03-10 18:54] LABS: ARTERIAL BLOOD FIO2 RA
[2019-03-10] MEDS: MORPHINE SULFATE 10 MG/ML INJ IV PRN (19:17)
[2019-03-10] MEDS: FUROSEMIDE INJ/PF 40 MG/4 ML SDV IV SCH (19:19)
[2019-03-10] MEDS: APIXABAN 2.5 MG TABLET PO SCH (20:03)
--- NOTE | 2019-03-10 21:47 | XCELERA REPORT ---
[address] [address] Transthoracic Echocardiogram Report Name: JAS LAWSON, SAADIA Chavarria, Age: 68 yrs Gender: Male : 1950 Patient Status: Inpatient Patient Location: [place] [address]^A Study Date: 03/10/2019 07:29 PM Height: 72 in Weight: 180 lb BSA: 2.0 m2 Reason For Study: chf Ordering Physician: ELIZABETH RAMSEY Performed By: Yadi Vidal Interpretation Summary Study quality fair. Lack of contrast opacification limits evaluation for intracardiac thrombus/mass. LV cavity appears mildly dilated with severely decreased LVEF visually estimated at 15-20%, compared to 30% on echo dated 04/13/2018. RV mildly dilated with severely decreased RV systolic function. The transmitral spectral Doppler flow pattern is abnormal for age Severe biatrial dilatation noted ( although no measurements/ volume index provided). The aortic valve is trileaflet. There is a moderate to severe amount of mitral regurgitation There is a moderate amount of tricuspid regurgitation There is a mild amount of pulmonic regurgitation The inferior vena cava appeared normal and decreased > 50% with respiration (RAP 5-10 mmHg) The aortic root is normal size. MMode/2D Measurements & Calculations RVDd: 2.6 cm LVIDd: 5.8 cm FS: 4.4 % Ao root diam: 3.8 cm IVSd: 1.2 cm LVIDs: 5.6 cm EDV(Teich): Ao root area: LVPWd: 0.98 cm 168.4 ml ESV(Teich): 11.3 cm2 151.8 ml LA dimension: 4.0 cm EF(Teich): 9.9 % LVOT diam: 2.1 cmLVLd ap4: 7.6 cm SV(MOD-sp4): LVOT area: EDV(MOD-sp4): 23.0 ml 3.5 cm2 120.0 ml LVLs ap4: 7.1 cm ESV(MOD-sp4): 97.0 ml EF(MOD-sp4): 19.2 % Doppler Measurements & Calculations MV E max lani: MV P1/2t max lani: Ao V2 max: LV V1 max P.7 cm/sec 100.8 cm/sec 89.5 cm/sec 1.7 mmHg MV A max lani: MV P1/2t: 45.4 msec Ao max PG: LV V1 max: 52.8 cm/sec 3.2 mmHg 65.7 cm/sec MV E/A: 1.9 MVA(P1/2t): 4.8 cm2 MV dec slope: BRICE(V,D): 2.6 cm2 650.6 cm/sec2 MV dec time: 0.16 sec PA V2 max: PI end-d lani: TR max lani: MV P1/2t-pr_phl: 67.9 cm/sec 148.0 cm/sec 291.9 cm/sec 45.4 msec PA max PG: TR max P.8 mmHg 34.1 mmHg Left Ventricle Left ventricular systolic function is severely reduced. The transmitral spectral Doppler flow pattern is abnormal for age. Right Ventricle A moderator band is seen in the right ventricle. The right ventricle is mildly dilated. The right ventricular systolic function is severely reduced. Atria The right atrium is severely dilated. The left atrium is severely dilated. Mitral Valve The reduced mitral leaflet separation suggests decreased flow through the mitral valve and poor cardiac output. The mitral valve leaflets appear thickened, but open well. There is mild mitral leaflet calcification. There is a moderate to severe amount of mitral regurgitation. Aortic Valve The aortic valve is trileaflet. There is a peak gradient of 3 mm of Hg. Tricuspid Valve Tricuspid leaflets are thickened. There is a moderate amount of tricuspid regurgitation. RVSP based on TR jet not reliable in setting of RV systolic dysfunction. Pulmonic Valve partiall visualized. There is a mild amount of pulmonic regurgitation. Great Vessels The aortic root is normal size. The inferior vena cava appeared normal and decreased > 50% with respiration (RAP 5-10 mmHg). Effusions There is no pericardial effusion. Left pleural effusion noted. : ELIZABETH RAMSEY > Nathan Smith
[2019-03-10] MEDS ORDERED: ATORVASTATIN CALCIUM 20 MG TABLET PO SCH (22:00)
[2019-03-10 22:53] LABS: CREATINE KINASE MB 3.61 ng/mL (<4.55); TROPONIN I 0.042 ng/mL
[2019-03-11] MEDS: FUROSEMIDE INJ/PF 40 MG/4 ML SDV IV SCH ×2 (02:33→09:59)
[2019-03-11 03:18] LABS: URINE AMPHETAMINES SCREEN NEGATIVE; URINE BARBITURATES SCREEN NEGATIVE; URINE BENZODIAZEPINES SCREEN NEGATIVE; URINE COCAINE SCREEN NEGATIVE; URINE METHADONE SCREEN NEGATIVE; URINE PHENCYCLIDINE SCREEN NEGATIVE
[2019-03-11 03:24] LABS: URINE MARIJUANA (THC) SCREEN UNCONFIRMED POSITIVE
[2019-03-11 05:18] LABS: ABSOLUTE BASOPHILS # (AUTO) 0.1 10^3/uL (0.0-0.2); ABSOLUTE EOSINOPHILS # (AUTO) 0.3 10^3/uL (0.0-0.6); ABSOLUTE MONOCYTES (AUTO) 0.7 10^3/uL (0.1-1.4); ABSOLUTE NEUT (AUTO) 4.5 10^3/uL (1.7-8.2); BASOPHILS % (AUTO) 1.1 % (0-2); EOSINOPHILS % (AUTO) 3.6 % (0-6); HEMATOCRIT 34.5 % (37.9-51.0); HEMOGLOBIN 11.7 g/dL (13.5-17.0); LYMPHOCYTES % (AUTO) 26.2 % (13-45); MEAN CORPUSCULAR HEMOGLOBIN 30.1 pg (27.0-33.4); MEAN CORPUSCULAR HGB CONC 33.8 g/dL (32.0-36.0); MEAN CORPUSCULAR VOLUME 89 fl (80-97); MONOCYTES % (AUTO) 8.7 % (3-13); PLATELET COUNT 167 10^3/uL (150-450); RED BLOOD COUNT 3.87 10^6/uL (4.35-5.55); RED CELL DISTRIBUTION WIDTH 14.7 % (11.5-14.0); SEGMENTED NEUTROPHILS % (AUTO) 60.4 % (42-78); TOTAL CELLS COUNTED % (AUTO) 100 %; WHITE BLOOD COUNT 7.4 10^3/uL (4.0-10.5)
[2019-03-11 05:35] LABS: ALANINE AMINOTRANSFERASE 42 U/L (21-72); ALBUMIN 3.2 g/dL (3.5-5.0); ALKALINE PHOSPHATASE 83 U/L (38-126); ANION GAP 9 (5-19); ASPARTATE AMINO TRANSFERASE 43 U/L (17-59); BILIRUBIN,DIRECT 0.2 mg/dL (0.0-0.4); BILIRUBIN,TOTAL 0.4 mg/dL (0.2-1.3); BLOOD UREA NITROGEN 18 mg/dL (7-20); CALCIUM 9.3 mg/dL (8.4-10.2); CARBON DIOXIDE 27 mmol/L (22-30); CHLORIDE 101 mmol/L (98-107); CHOLESTEROL 124.17 mg/dL (0-200); CREATINE KINASE 108 U/L (55-170); GLUCOSE 99 mg/dL (75-110); TOTAL PROTEIN 5.8 g/dL (6.3-8.2); TRIGLYCERIDES 112 mg/dL (<150)
[2019-03-11 05:46] LABS: DIRECT LDL 68 mg/dL (<100)
[2019-03-11 05:57] LABS: CREATINE KINASE MB 4.05 ng/mL (<4.55); TROPONIN I 0.034 ng/mL
[2019-03-11] MEDS ORDERED: PANTOPRAZOLE SODIUM 40 MG TABLET.DR PO SCH (06:00)
[2019-03-11] MEDS: APIXABAN 2.5 MG TABLET PO SCH (09:59)
[2019-03-11] MEDS ORDERED: DOCUSATE SODIUM 100 MG CAPSULE PO SCH (10:00)
[2019-03-11] MEDS ORDERED: PAROXETINE HCL 20 MG TABLET PO SCH (10:00)
[2019-03-11] MEDS ORDERED: (PENDING PHARMACY ID) (Lisinopril [Zestril] 40 MG) PO SCH (10:00)
[2019-03-11] MEDS ORDERED: CARVEDILOL 3.125 MG TABLET PO SCH (10:00)
[2019-03-11] MEDS ORDERED: (PENDING PHARMACY ID) (Paroxetine Hcl [Paxil] 60 MG) PO SCH (10:00)
[2019-03-11] MEDS ORDERED: FERROUS SULFATE 325 MG TABLET PO SCH (10:00)
[2019-03-11] MEDS ORDERED: LISINOPRIL 10 MG TABLET PO SCH (10:00)
[2019-03-11] MEDS ORDERED: ASPIRIN 81 MG TABLET, CHEWABLE PO SCH (10:00)
[2019-03-11] MEDS: MORPHINE SULFATE 10 MG/ML INJ IV PRN (10:09)
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
--- NOTE | 2019-03-11 10:51 | PDOC TRANSFER SUMMARY ---
General Admission Date/PCP: 03/10/19 18:44 [facility] Resuscitation Status: Full Code - Transfer Diagnosis (1) Acute exacerbation of CHF (congestive heart failure) Is this a current diagnosis for this admission?: Yes Diagnosis Summary: 03/10/[id number]-kmrw-old male with multiple medical problems came in acute ex acerbation of CHF. Looking at this chart it looks like he has combined systolic and diastolic heart failure. In the emergency room he received a total of 80 mg of IV Lasix. To place him in IMCU, started on as needed BiPAP, supplemental oxygen 2 L nasal cannula, IV Lasix 40 mg every 8 hours, morphine 2 mg IV every 4 as needed for increased diuresis, GI prophylaxis was initiated patient is on Lorene kervin at home for atrial fibrillation which was resumed. CTA of the chest was done it is negative for PE but shows moderate bilateral pleural effusions with atelectasis. pt has Shannon's catheter to check strict input output chart. We are going to monitor strict input output chart and daily weights. Echocardiogram was requested cardiology consult with Dr. Smith was requested. pt is going to be placed on fluid restriction 1500 cc/day. 03/11/[id number]-lsry-old male admitted with acute exacerbation of combined systolic and diastolic heart failure. Echocardiogram that was repeated yesterday arturo cates EF of 15 to 20%. Dr. smith spoke to electrophysiological team in [place] for possible defibrillator placement. They accept the patient saw the patient is going to go there tomorrow or today to [place] for ICD placement tomorrow. Accepting physician will be Dr. Vladimir Denny. Patient is on IV Lasix every 8 hours resting comfortably in the bed lying flat in bed. Pulse ox is 99% on room air. Yesterday's CT scan shows moderate bilateral pleural effusions. (2) Chest pain Is this a current diagnosis for this admission?: Yes Diagnosis Summary: 03/10/2019-patient came in with chest pains. Patient complaining of chest pains on and off not associated with activity. He is describing pain like a bandlike pain across the chest. Does not look like cardiac origin. She will troponin is 0.043. Follow-up cardiac enzymes are requested. Lipid panel was requested. He was placed on morphine 2 mg IV every 4 as needed for chest pains. 03/11/2019-yesterday patient came in with complaints of chest pains initial troponins are slightly elevated they are trending down denies any complaints of chest pains today. It most likely secondary to oxygen and demand and supply mismatch. And has a short run of SVT this morning. (3) Hypertension Is this a current diagnosis for this admission?: Yes Diagnosis Summary: 03/11/2019-patient's pressure today is 149/103. He has history of chronic essential hypertension. Presently on Coreg 3.125 mg p.o. twice a day, Lasix 40 mg p.o. twice daily, lisinopril 40 mg p.o. daily plan is to continue the present management. (4) Depression Is this a current diagnosis for this admission?: No (5) Diabetes Is this a current diagnosis for this admission?: No Diagnosis Summary: 03/11/2019-patient has history of diabetes mellitus latest blood sugar is 74 and hemoglobin A1c is 8.6, diet complex with medications discussed and dietary consult was requested. (6) Tobacco dependence Is this a current diagnosis for this admission?: Yes (7) Atrial fibrillation Is this a current diagnosis for this admission?: No Diagnosis Summary: 03/10/2019-patient has history of atrial fibrillation with RVR as per the patient he supposed to go for pacemaker placement. Presently on carvedilol and Eliquis at home. Those medications are resumed during this hospital stay. 03/11/2019-patient has history of atrial fibrillation on apixaban at home and also on Coreg 3.125 mg p.o. twice a day. Heart rate is relatively controlled in the 60s. He has a short run of SVT this morning. Patient is going to [place] today for ICD placement. - Transfer Medications Home Medications: Apixaban [Eliquis 5 mg Tablet] 5 mg PO Q12 03/10/19 Aspirin [Adult Low Dose Aspirin EC] 81 mg PO DAILY 03/10/19 Atorvastatin Calcium [Lipitor 80 mg Tablet] 80 mg PO QHS 03/10/19 Carvedilol [Coreg 3.125 mg Tablet] 3.125 mg PO BID 03/10/19 Ferrous Sulfate [Feosol 325 mg Tablet] 325 mg PO DAILY 03/10/19 Gabapentin [Neurontin] 600 mg PO Q8 03/10/19 Insulin Glargine,Hum.rec.anlog [Lantus Insulin 100 Unit/1 ml 10 ml] 20 units SQ QAM 03/10/19 Lisinopril [Zestril] 40 mg PO DAILY 03/10/19 Metformin HCl [Glucophage 500 mg Tablet] 500 mg PO TID 03/10/19 Paroxetine HCl [Paxil] 60 mg PO DAILY 03/10/19 Insulin Aspart [Novolog Flexpen] 0 units SQ .PERSLIDINGSCALE 03/11/19 Transfer Medications: Current Medications Acetaminophen (Tylenol 325 Mg Tablet) 650 mg PO Q4HP PRN PRN Reason: FEVER >101 Stop: 04/09/19 18:14 Apixaban (Eliquis 2.5 Mg Tablet) 2.5 mg PO BID KAYCEE Stop: 04/09/19 19:59 Last Admin: 03/11/19 09:59 Dose: Not Given Documented by: Aspirin (Aspirin 81 Mg Chewable Tablet) 81 mg PO DAILY KAYCEE Stop: 04/10/19 09:59 Last Admin: 03/11/19 09:58 Dose: Not Given Documented by: Atorvastatin Calcium (Lipitor 20 Mg Tablet) 20 mg PO QHS KAYCEE Stop: 04/09/19 21:59 Last Admin: 03/10/19 22:02 Dose: 20 mg Documented by: Carvedilol (Coreg 3.125 Mg Tablet) 3.125 mg PO BID [facility] Stop: 04/10/19 09:59 Last Admin: 03/11/19 10:00 Dose: 3.125 mg Documented by: Dextrose (Dextrose Inj 50% Syringe (25 Gm/50 Ml)) 25 gm IV PRN PRN; Protocol PRN Reason: PER PROTOCOL Stop: 04/09/19 18:22 Dextrose (Dextrose Inj 50% Syringe (25 Gm/50 Ml)) 12.5 gm IV PRN PRN; Protocol PRN Reason: FOR BG 50-69 IN ALERT PATIENT Stop: 04/09/19 18:22 Docusate Sodium (Colace 100 Mg Capsule) 100 mg PO BID [facility] Stop: 04/10/19 09:59 Last Admin: 03/11/19 10:01 Dose: 100 mg Documented by: Ferrous Sulfate (Feosol 325 Mg Tablet) 325 mg PO DAILY KAYCEE Stop: 04/10/19 09:59 Last Admin: 03/11/19 09:59 Dose: 325 mg Documented by: Furosemide (Lasix Inj/Pf 40 Mg/4 Ml Sdv) 40 mg IV Q8H [facility] Stop: 04/09/19 18:29 Last Admin: 03/11/19 09:59 Dose: 40 mg Documented by: Gabapentin (Neurontin 300 Mg Capsule) 600 mg PO Q8 [facility] Stop: 04/10/19 13:59 Glucagon (Glucagen Inj 1 Mg Vial) 1 mg IM PRN PRN; Protocol PRN Reason: Evaluate for BG < 70 Stop: 04/09/19 18:22 Glucose (Glutose 40% Gel 15 Gm Tube) 15 gm PO PRN PRN; Protocol PRN Reason: FOR BG 50-69 IN ALERT PATIENT Stop: 04/09/19 18:22 Glucose (Glutose 40% Gel 15 Gm Tube) 30 gm PO PRN PRN; Protocol PRN Reason: FOR BG < 50 IN ALERT PATIENT Stop: 04/09/19 18:22 Hydralazine HCl (Apresoline Inj/Pf 20 Mg/1 Ml Sdv) 10 mg IV Q6HP PRN PRN Reason: GIVE FOR SBP > [] Stop: 04/09/19 18:44 Lisinopril (Prinivil 10 Mg Tablet) 40 mg PO DAILY [facility] Stop: 04/10/19 09:59 Last Admin: 03/11/19 10:00 Dose: 40 mg Documented by: Morphine Sulfate (Morphine 10 Mg/Ml Inj) 2 mg IV Q6HP PRN PRN Reason: FOR PAIN Stop: 03/17/19 18:19 Last Admin: 03/11/19 10:09 Dose: 2 mg Documented by: Nitroglycerin (Nitrostat 0.4 Mg (1/150 Gr) Tabs 25/Bottle) 1 tab SL ASDIR PRN PRN Reason: FOR CHEST PAIN Last Admin: 03/10/19 16:34 Dose: 1 tab Documented by: Ondansetron HCl (Zofran Inj/Pf 4 Mg/2 Ml Sdv) 4 mg IV Q8HP PRN PRN Reason: FOR NAUSEA/VOMITING Stop: 04/09/19 18:14 Pantoprazole Sodium (Protonix [address] Tablet) 40 mg PO Q6AM [facility] Stop: 04/10/19 05:59 Last Admin: 03/11/19 05:08 Dose: 40 mg Documented by: Paroxetine HCl (Paxil 20 Mg Tablet) 60 mg PO DAILY [facility] Stop: 04/10/19 09:59 Last Admin: 03/11/19 10:10 Dose: 60 mg Documented by: Sodium Chloride (Saline Flush 2.5 Ml Monoject Prefil Syrin) 2.5 ml IV Q8 [facility] Stop: 04/09/19 21:59 Last Admin: 03/11/19 05:08 Dose: 2.5 ml Documented by: - Allergies Allergies/Adverse Reactions: No Known Allergies Allergy (Verified 03/10/19 13:58) - Diet/Activity Discharge Diet: Cardiac, Diabetic Hospital Course Hospital Course: 68-year-old male with multiple medical problems including ischemic cardiomyopathy echocardiogram done yesterday shows EF around 15 to 20%, atrial fibrillation, diabetes mellitus, hypertension, nicotine dependency, hyperlipidemia came to the emergency room with complaints of shortness of breath. He was started on IV Lasix every 8 hours echocardiogram shows EF of 15 to 20%. Cardiology consult was done and the plan is to transfer the patient to [place] for ICD placement today. no Acute events during the hospital stay. Physical Exam Vital Signs: Temp Pulse Resp BP Pulse Ox 97.7 F 106 H 24 H 149/103 H 95 03/11/19 07:43 03/11/19 07:43 03/11/19 09:04 03/11/19 07:43 03/11/19 09:04 Intake & Output 03/10/19 03/11/19 03/12/19 06:59 06:59 06:59 Intake Total 450 240 Output Total 9567 Balance -9117 240 Weight 80.8 kg General appearance: PRESENT: no acute distress Head exam: PRESENT: atraumatic Eye exam: PRESENT: PERRLA Mouth exam: PRESENT: dry mucosa Teeth exam: PRESENT: poor dentation Neck exam: ABSENT: carotid bruit, JVD, lymphadenopathy, thyromegaly Respiratory exam: PRESENT: decreased breath sounds Cardiovascular exam: PRESENT: RRR. ABSENT: diastolic murmur, rubs, systolic murmur GI/Abdominal exam: PRESENT: normal bowel sounds, soft. ABSENT: distended, guarding, mass, organolmegaly, rebound, tenderness Rectal exam: PRESENT: deferred Neurological exam: PRESENT: alert, awake, oriented to person, oriented to place, oriented to time, oriented to situation, CN II-XII grossly intact. ABSENT: motor sensory deficit Psychiatric exam: PRESENT: appropriate affect, normal mood. ABSENT: homicidal ideation, suicidal ideation Results Laboratory Results: 03/11/19 04:15 03/11/19 04:15 03/10/19 03/10/19 03/10/19 16:00 16:00 17:15 WBC 9.7 RBC 3.87 L Hgb 11.6 L Hct 34.9 L MCV 90 MCH 30.0 MCHC 33.4 RDW 14.3 H Plt Count 194 Seg Neutrophils % 55.3 Lymphocytes % 32.4 Monocytes % 9.0 Eosinophils % 2.2 Basophils % 1.1 Absolute Neutrophils 5.4 Absolute Lymphocytes 3.1 Absolute Monocytes 0.9 Absolute Eosinophils 0.2 Absolute Basophils 0.1 Carbonic Acid HCO3/H2CO3 Ratio ABG pH ABG pCO2 ABG pO2 ABG HCO3 ABG O2 Saturation ABG Base Excess FiO2 Sodium 135.2 L Potassium 4.8 Chloride 101 Carbon Dioxide 26 Anion Gap 8 BUN 17 Creatinine 0.99 Est GFR ( Amer) > 60 Est GFR (Non-Af Amer) > 60 Glucose 39 L* Calcium 9.4 Magnesium Total Bilirubin 0.4 AST 59 ALT 53 Alkaline Phosphatase 89 Total Protein 6.4 Albumin 3.6 Triglycerides Cholesterol LDL Cholesterol Direct VLDL Cholesterol HDL Cholesterol Lipase < 10.0 L TSH Urine Color YELLOW Urine Appearance CLEAR Urine pH 5.0 Ur Specific [place] 1.010 Urine Protein 100 H Urine Glucose (UA) 50 H Urine Ketones NEGATIVE Urine Blood NEGATIVE Urine Nitrite NEGATIVE Ur Leukocyte Esterase NEGATIVE Urine WBC (Auto) 0 Urine RBC (Auto) 1 03/10/19 03/11/19 03/11/19 18:40 04:15 04:15 WBC 7.4 RBC 3.87 L Hgb 11.7 L Hct 34.5 L MCV 89 MCH 30.1 MCHC 33.8 RDW 14.7 H Plt Count 167 Seg Neutrophils % 60.4 Lymphocytes % 26.2 Monocytes % 8.7 Eosinophils % 3.6 Basophils % 1.1 Absolute Neutrophils 4.5 Absolute Lymphocytes 2.0 Absolute Monocytes 0.7 Absolute Eosinophils 0.3 Absolute Basophils 0.1 Carbonic Acid 1.17 HCO3/H2CO3 Ratio 20:1 ABG pH 7.41 ABG pCO2 38.9 ABG pO2 63.4 L ABG HCO3 24.0 ABG O2 Saturation 92.5 L ABG Base Excess -0.5 FiO2 RA Sodium 137.0 Potassium 4.0 Chloride 101 Carbon Dioxide 27 Anion Gap 9 BUN 18 Creatinine 0.97 Est GFR ( Amer) > 60 Est GFR (Non-Af Amer) > 60 Glucose 99 Calcium 9.3 Magnesium 1.7 Total Bilirubin 0.4 AST 43 ALT 42 Alkaline Phosphatase 83 Total Protein 5.8 L Albumin 3.2 L Triglycerides 112 Cholesterol 124.17 LDL Cholesterol Direct 68 VLDL Cholesterol 22.0 HDL Cholesterol 38 L Lipase TSH Urine Color Urine Appearance Urine pH Ur Specific [place] Urine Protein Urine Glucose (UA) Urine Ketones Urine Blood Urine Nitrite Ur Leukocyte Esterase Urine WBC (Auto) Urine RBC (Auto) 03/11/19 04:15 WBC RBC Hgb Hct MCV MCH MCHC RDW Plt Count Seg Neutrophils % Lymphocytes % Monocytes % Eosinophils % Basophils % Absolute Neutrophils Absolute Lymphocytes Absolute Monocytes Absolute Eosinophils Absolute Basophils Carbonic Acid HCO3/H2CO3 Ratio ABG pH ABG pCO2 ABG pO2 ABG HCO3 ABG O2 Saturation ABG Base Excess FiO2 Sodium Potassium Chloride Carbon Dioxide Anion Gap BUN Creatinine Est GFR ( Amer) Est GFR (Non-Af Amer) Glucose Calcium Magnesium Total Bilirubin AST ALT Alkaline Phosphatase Total Protein Albumin Triglycerides Cholesterol LDL Cholesterol Direct VLDL Cholesterol HDL Cholesterol Lipase TSH 4.12 Urine Color Urine Appearance Urine pH Ur Specific [place] Urine Protein Urine Glucose (UA) Urine Ketones Urine Blood Urine Nitrite Ur Leukocyte Esterase Urine WBC (Auto) Urine RBC (Auto) 03/10/19 03/10/19 03/10/19 16:00 22:16 22:16 Creatine Kinase 113 CK-MB (CK-2) 4.57 H 3.61 Troponin I 0.043 0.042 NT-Pro-B Natriuret Pep 13258 H 03/11/19 03/11/19 04:15 04:15 Creatine Kinase 108 CK-MB (CK-2) 4.05 Troponin I 0.034 NT-Pro-B Natriuret Pep [id number] H Impressions: Chest X-Ray 03/10/19 14:25 IMPRESSION: 1. Cardiomegaly and small bilateral pleural effusions. 2. There are minimally displaced fractures of the posterolateral left 6th and 7th ribs, which are new from prior examination although age indeterminate. Correlate for recent trauma and point tenderness. Chest/Abdomen CTA 03/10/19 16:32 IMPRESSION: Moderate bilateral pleural effusions with dependent atelectasis. No CTA evidence of acute pulmonary emboli. Plan Discharge Plan: Transferred to [facility] today. Time Spent: Greater than 30 Minutes
[2019-03-11 11:03] LABS: CREATINE KINASE MB 3.26 ng/mL (<4.55); TROPONIN I 0.037 ng/mL
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
[2019-03-11] MEDS ORDERED: GABAPENTIN 300 MG CAPSULE PO SCH (14:00)
[2019-03-11 16:16] VITALS: BP 121/92
== END 2019-03-11 16:19 | disposition short-term general hospital (02) | DRG 293 ==
LOC: ER 13:57 → EH 18:44 → 3S 20:45
PROVIDERS: ADMIT Internal Medicine; ATTEND Internal Medicine
PROC: 5A09357 Assistance with Respiratory Ventilation, Less than 24 Consecutive Hours, Continuous Positive Airway Pressure (ICD-10-PCS; principal; 2019-03-10)
DX: I11.0 Hypertensive heart disease with heart failure (principal); I50.43 Acute on chronic combined systolic (congestive) and diastolic (congestive) heart failure; F32.9 Major depressive disorder, single episode, unspecified; E11.9 Type 2 diabetes mellitus without complications; I25.5 Ischemic cardiomyopathy; E78.5 Hyperlipidemia, unspecified; I25.10 Atherosclerotic heart disease of native coronary artery without angina pectoris; K21.9 Gastro-esophageal reflux disease without esophagitis; F17.200 Nicotine dependence, unspecified, uncomplicated; D64.9 Anemia, unspecified; I25.2 Old myocardial infarction; Z79.01 Long term (current) use of anticoagulants; Z79.899 Other long term (current) drug therapy; Z79.4 Long term (current) use of insulin; Z79.82 Long term (current) use of aspirin; Z95.1 Presence of aortocoronary bypass graft; Z87.820 Personal history of traumatic brain injury; Z89.422 Acquired absence of other left toe(s); Z86.73 Personal history of transient ischemic attack (TIA), and cerebral infarction without residual deficits
CPT/HCPCS: 36415; 51702; 71046; 71275; 80053; 80061; 80307; 81001; 82550; 82553; 82803; 82962; 83036; 83690; 83735; 83880; 84443; 84484; 85025; 93005; 93010; 93306; 94660; 96374; 96375; 99291; J1940; J2270; J3490

== ENCOUNTER 2019-03-18 02:48 | Emergency (ER) | payer OTHER, MEDICARE ==
[2019-03-18] MEDS ORDERED: ASPIRIN 81 MG TABLET, CHEWABLE PO ONE (02:51)
[2019-03-18 03:21] LABS: ABSOLUTE BASOPHILS # (AUTO) 0.1 10^3/uL (0.0-0.2); ABSOLUTE EOSINOPHILS # (AUTO) 0.2 10^3/uL (0.0-0.6); ABSOLUTE LYMPHOCYTES (AUTO) 1.5 10^3/uL (0.5-4.7); ABSOLUTE MONOCYTES (AUTO) 0.6 10^3/uL (0.1-1.4); ABSOLUTE NEUT (AUTO) 3.8 10^3/uL (1.7-8.2); BASOPHILS % (AUTO) 1.2 % (0-2); EOSINOPHILS % (AUTO) 2.7 % (0-6); HEMATOCRIT 27.7 % (37.9-51.0); HEMOGLOBIN 9.3 g/dL (13.5-17.0); LYMPHOCYTES % (AUTO) 24.6 % (13-45); MEAN CORPUSCULAR HEMOGLOBIN 30.3 pg (27.0-33.4); MEAN CORPUSCULAR HGB CONC 33.4 g/dL (32.0-36.0); MEAN CORPUSCULAR VOLUME 91 fl (80-97); MONOCYTES % (AUTO) 9.6 % (3-13); PLATELET COUNT 153 10^3/uL (150-450); RED BLOOD COUNT 3.06 10^6/uL (4.35-5.55); SEGMENTED NEUTROPHILS % (AUTO) 61.9 % (42-78); TOTAL CELLS COUNTED % (AUTO) 100 %; WHITE BLOOD COUNT 6.1 10^3/uL (4.0-10.5)
--- NOTE | 2019-03-18 03:44 | RADIOLOGY REPORT (SQ) ---
CLINICAL HISTORY: chest pain COMPARISON: None. TECHNIQUE: XR CHEST 1 VIEW 03/18/2019 2:51 AM CDT FINDINGS: The heart is moderately enlarged following sternotomy. There is a left single-chamber ICD. Lungs are clear without consolidation, atelectasis, mass or edema. There is a small left pleural effusion. There is no pneumothorax. There are no acute osseous findings. IMPRESSION: Small left pleural effusion. No definite pneumonia.
[2019-03-18 03:50] LABS: ALANINE AMINOTRANSFERASE 47 U/L (21-72); ALBUMIN 2.6 g/dL (3.5-5.0); ALKALINE PHOSPHATASE 60 U/L (38-126); ANION GAP 5 (5-19); ASPARTATE AMINO TRANSFERASE 91 U/L (17-59); BILIRUBIN,DIRECT 0.2 mg/dL (0.0-0.4); BILIRUBIN,TOTAL 0.5 mg/dL (0.2-1.3); BLOOD UREA NITROGEN 15 mg/dL (7-20); CALCIUM 7.8 mg/dL (8.4-10.2); CARBON DIOXIDE 25 mmol/L (22-30); CHLORIDE 101 mmol/L (98-107); CREATINE KINASE 87 U/L (55-170); GLUCOSE 289 mg/dL (75-110); POTASSIUM 4.2 mmol/L (3.6-5.0); SODIUM 130.9 mmol/L (137-145); TOTAL PROTEIN 4.9 g/dL (6.3-8.2)
[2019-03-18 04:27] LABS: CREATINE KINASE MB 2.71 ng/mL (<4.55); TROPONIN I 0.028 ng/mL
[2019-03-18 05:04] VITALS: BP 126/87
--- NOTE | 2019-03-18 10:21 | EKG REPORT ---
SEVERITY:- ABNORMAL ECG - SINUS RHYTHM INFERIOR INFARCT, AGE INDETERMINATE CONSIDER ANTERIOR INFARCT NS ST-T CHANGES LATERAL LEADS. : Confirmed by: Agnes Calderon MD 18-Mar-2019 10:21:04
== END 2019-03-18 05:04 | disposition left against medical advice (07) ==
LOC: ER 02:48
DX: Z53.21 Procedure and treatment not carried out due to patient leaving prior to being seen by health care provider (principal)
CPT/HCPCS: 36415; 71045; 80053; 82550; 82553; 84484; 85025; 93005; 93010

== ENCOUNTER 2019-03-22 06:43 | Emergency (ER) | payer OTHER, MEDICARE ==
[2019-03-22] MEDS ORDERED: INSULIN REG, HUMAN 100 UNIT/ML 3 ML VIAL (PYX) IV ONE (07:06)
[2019-03-22 07:26] LABS: ABSOLUTE EOSINOPHILS # (AUTO) 0.1 10^3/uL (0.0-0.6); ABSOLUTE MONOCYTES (AUTO) 0.5 10^3/uL (0.1-1.4); ABSOLUTE NEUT (AUTO) 4.6 10^3/uL (1.7-8.2); BASOPHILS % (AUTO) 0.7 % (0-2); EOSINOPHILS % (AUTO) 2.4 % (0-6); HEMATOCRIT 26.2 % (37.9-51.0); LYMPHOCYTES % (AUTO) 16.4 % (13-45); MEAN CORPUSCULAR HEMOGLOBIN 30.6 pg (27.0-33.4); MEAN CORPUSCULAR HGB CONC 34.3 g/dL (32.0-36.0); MEAN CORPUSCULAR VOLUME 89 fl (80-97); MONOCYTES % (AUTO) 8.3 % (3-13); PLATELET COUNT 182 10^3/uL (150-450); RED BLOOD COUNT 2.93 10^6/uL (4.35-5.55); RED CELL DISTRIBUTION WIDTH 13.9 % (11.5-14.0); SEGMENTED NEUTROPHILS % (AUTO) 72.2 % (42-78); TOTAL CELLS COUNTED % (AUTO) 100 %; WHITE BLOOD COUNT 6.4 10^3/uL (4.0-10.5)
[2019-03-22 07:40] LABS: ALANINE AMINOTRANSFERASE 61 U/L (21-72); ALBUMIN 3.1 g/dL (3.5-5.0); ALKALINE PHOSPHATASE 74 U/L (38-126); ANION GAP 7 (5-19); ASPARTATE AMINO TRANSFERASE 76 U/L (17-59); BLOOD UREA NITROGEN 21 mg/dL (7-20); CALCIUM 8.9 mg/dL (8.4-10.2); CARBON DIOXIDE 25 mmol/L (22-30); CHLORIDE 97 mmol/L (98-107); CREATINE KINASE 88 U/L (55-170); TOTAL PROTEIN 5.7 g/dL (6.3-8.2)
[2019-03-22 07:44] LABS: BILIRUBIN,TOTAL 0.5 mg/dL (0.2-1.3)
[2019-03-22 07:47] LABS: BILIRUBIN,DIRECT 0.3 mg/dL (0.0-0.4)
[2019-03-22 07:52] LABS: CREATINE KINASE MB 3.16 ng/mL (<4.55); GLUCOSE 429 mg/dL (75-110); TROPONIN I 0.03 ng/mL
--- NOTE | 2019-03-22 08:22 | RADIOLOGY REPORT (SQ) ---
EXAM DESCRIPTION: CHEST SINGLE VIEW COMPLETED DATE/TIME: 03/22/2019 7:54 am REASON FOR STUDY: SOB COMPARISON: 03/18/2019 EXAM PARAMETERS: NUMBER OF VIEWS: One view. TECHNIQUE: Single frontal radiographic view of the chest acquired. RADIATION DOSE: NA LIMITATIONS: None. FINDINGS: Slight interval increase in diffuse bilateral interstitial pulmonary opacity and intersept al thickening, likely reflecting worsened edema. Unchanged small left pleural effusion. Cardiomegal y status post median sternotomy with left chest single lead pacer defibrillator. IMPRESSION: Slight interval increase in diffuse bilateral interstitial pulmonary opacity and interse ptal thickening, likely reflecting worsened edema. Unchanged small left pleural effusion. Cardiomeg anahi status post median sternotomy with left chest single lead pacer defibrillator. TECHNICAL DOCUMENTATION: JOB ID: [id number] [employer]- All Rights Reserved Reading location - IP/workstation name: [email or web address]
[2019-03-22] MEDS ORDERED: FUROSEMIDE INJ/PF 100 MG/10 ML SDV IV ONE (08:36)
[2019-03-22 10:16] VITALS: BP 152/109
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
--- NOTE | 2019-03-22 23:00 | EKG REPORT ---
SEVERITY:- ABNORMAL ECG - SINUS TACHYCARDIA INFERIOR INFARCT, AGE INDETERMINATE NONSPECIFIC T ABNORMALITIES, ANT-LAT LEADS : Confirmed by: Lowell Hernandez 22-Mar-2019 23:00:01
== END 2019-03-22 10:25 | disposition home or self-care (01) ==
LOC: ER 06:43
DX: R09.89 Other specified symptoms and signs involving the circulatory and respiratory systems (principal); R06.02 Shortness of breath; E11.65 Type 2 diabetes mellitus with hyperglycemia; S20.212A Contusion of left front wall of thorax, initial encounter; X58.XXXA Exposure to other specified factors, initial encounter; R60.0 Localized edema; R00.0 Tachycardia, unspecified; R07.1 Chest pain on breathing; F17.210 Nicotine dependence, cigarettes, uncomplicated; I25.10 Atherosclerotic heart disease of native coronary artery without angina pectoris; I10 Essential (primary) hypertension; Z95.5 Presence of coronary angioplasty implant and graft; Z95.810 Presence of automatic (implantable) cardiac defibrillator
CPT/HCPCS: 93005; 99285; 96374; 36415; 82553; 82962; 82550; 83735; 85025; 80053; 84484; 83880; 71045; 93010; J1940; J1815